=== PATIENT | male | born 1955 | race Caucasian/White ===

== ENCOUNTER 2016-06-13 20:28 | Emergency (ER) | payer MEDICAID, MEDICARE ==
[~2016-06-13] VITALS: Ht 177.8 cm; Wt 99.0 kg
[~2016-06-13 20:28] MED LIST: GABA-502 PO; HYDR-656 PO; INSU100I SUBQ; LEVO500T16 PO; LEVO500T79 PO; METF850T2 PO; OXYC-466 PO; OXYC1TAB24 PO; SOFO400T PO
[2016-06-13 20:51] VITALS: BP 136/86; PULSE 89; RESP 20; O2SAT 98
--- NOTE | 2016-06-13 22:39 | ED.REPORT ---
HPI-Dental/Mouth Prob Date of Service Jun 13, 2016 ED Provider: Arsen Bourgeois MD Pt is a 61 y/o male w/ a hx significant for chronic pain with opiate dependence and drug-seeking behavior, presenting to the ED c/o dental pain onset a few days ago. The patient had 3 teeth pulled on the upper right side with suturing 3 weeks ago. He is now experiencing a piercing sensation into his gum. Ibuprofen and Tylenol has not provided much relief. He is currently taking antibiotics. Pt denies fever, SOB, dysphagia, facial swelling. Of note, the patient gives incorrect information about when he was last given narcotic pain medication. Nursing Notes Stated Complaint: TOOTH PAIN Chief Complaint: Dental Nursing Notes Reviewed: Yes Allergies: Coded Allergies: Penicillins (Verified Allergy, Severe, Severe itching/hives, OK WITH CEPHALOSPORINS, 05/29/16) PT TAKES KEFLEX AT HOME RECEIVED ROCEPHIN ON 08/16; NO PROBLEMS NOTED ketorolac (Verified Adverse Reaction, Intermediate, 05/29/16) Scheduled Gabapentin (Gabapentin) 300 Mg Capsule 900 MG PO DAILY Levofloxacin (Levaquin) 500 Mg Tablet 500 MG PO DAILY Levofloxacin (Levofloxacin) 500 Mg Tablet 500 MG PO DAILY Sofosbuvir (Sovaldi) 400 Mg Tablet 400 MG PO DAILY taken at am hydrOXYzine Hcl (HydrOXYzine Hcl) 25 Mg Tablet 25 MG PO DAILY Scheduled PRN Insulin Aspart (NovoLOG U-100 Pen) 100 Unit/Ml Insuln.pen 0-20 UNIT SUBQ TIDAC PRN PRN sliding scale 1 unit for BS>150, 1 unit increment for BS increment of 25 Metformin (Metformin) 850 Mg Tablet 850 MG PO BIDAC PRN PRN only when Blood suger is high Take only when blood suger is high oxyCODONE-Acetaminophen 10-325 mg (oxyCODONE-Acetaminophen 10-325 mg) 1 Each Tablet 1 TABLET PO Q4H PRN PRN For Pain oxyCODONE-Acetaminophen 5-325 mg (oxyCODONE-Acetaminophen 5-325 mg) 1 Each Tablet 1-2 TAB PO Q6H PRN PRN For Pain General Time Seen by MD: 22:14 Chief Complaint Tooth pain Hx Obtained From: Patient Arrived By: Walk-in Onset Occurred: 3 days ago Symptom Duration: Since onset Quality: Painful Severity: Current: Moderate Severity: Maximum: Moderate Recent Healthcare: Recent doctor visit Past Medical History Past Medical History Notes: Infectious disease followed by Dr. Goff Drug seeking behavior Past Medical History C diff November 2015 Chronic venous stasis Hepatitis C, now treated Bilateral lower extremity knee arthritis On chronic opiates, with history of drug-seeking behavior Hx of septic joint - on doxycycline Anxiety Hx of pneumonia Reports: Diabetes mellitus, Hypertension Reports: Depression Past Surgical History Left knee replacement (2011) with MRSA postoperative infection and hardware removal right knee ACL repair Family History Father CABG in his 60's Smoking History Never Smoker Social History Alcohol Use: Denies alcohol use Drug Use: Denies drug use Other Social History: Local resident Occupation lives with partner and her daughter and daughter's boyfriend and severl young children Ambulatory Status Walker Review of Systems Constitutional: Denies: Fever Ears / Nose / Throat: Reports: Toothache Respiratory: Denies: Shortness of breath GI: Denies: Dysphagia Complete sys rev & neg: except as marked. Physical Exam Initial Vital Signs Vital Signs (First) Date Time Temp Pulse Resp B/P Pulse Ox O2 Delivery O2 Flow Rate FiO2 06/13/16 20:51 37.1 89 20 136/86 98 Room Air Initial VS: Reviewed, Vital signs normal Head / Eyes: Atraumatic, Normocephalic, PERRL Cardiovascular: Regular rate & rhythm, Heart sounds normal, Intact distal pulses Abdomen / GI: Soft, Non-tender, No guarding, No rebound, No distention Skin: Warm, Dry, No cyanosis Neurologic: Alert, Oriented, Nonfocal Psychiatric: Mood/affect normal, Behavior normal, Normal thought content ENT: Atraumatic, Airway patent, Mucous membranes moist, Pharynx NL Mostly edentulous Small pinpoint protrusion over anterior gum which he indicates is causing his pain. No erythema or evidence of abscess or infection Neck: Atraumatic, Supple, No meningismus, Full range of motion, No adenopathy General/Constitutional: Awake, Alert, No acute distress, Cooperative, Not toxic appearing Re-Eval/Medical Decision Med Decision/Clinical Course The patient did not disclose to me the multiple and extensive narcotic prescribing that has happened earlier in May and even this month. I told him that I was unwilling to participate narcotic prescription given this set of circumstances. Source of Hx: Old records Counseled Regarding: Diagnosis, Need for follow-up, When/why to return to ED Discharge & Departure Primary Impression: Pain, dental Additional Impression: Drug-seeking behavior Disposition: Home Discharge Condition All VS Reviewed: Yes Condition: Stable Additional Instructions: I am sorry but I am not willing to participate in narcotic prescription for these ongoing problems. I recommend you follow-up with a dentist as soon as possible. Referrals: Geraldine Contreras MD (PCP) Kenney Attestation Portions of this note were transcribed by Chris Mann. I, Dr. Bourgeois personally performed the history, physical exam and medical decision-making; I reviewed and confirmed the accuracy of the information in the transcribed note. Signed by Kenney Berry, 06/13/16 - 0606 copies to: Geraldine Contreras MD, Kirk H MD Jun 13, 2016 22:39 CHRIS MANN Jun 13, 2016 22:48
== END 2016-06-13 22:55 | disposition home or self-care (01) ==
LOC: SED 20:28
DX: K08.89 Other specified disorders of teeth and supporting structures (principal); I10 Essential (primary) hypertension; E11.9 Type 2 diabetes mellitus without complications; Z87.01 Personal history of pneumonia (recurrent); Z86.19 Personal history of other infectious and parasitic diseases; Z72.89 Other problems related to lifestyle; Z96.652 Presence of left artificial knee joint; Z86.14 Personal history of Methicillin resistant Staphylococcus aureus infection; Z88.0 Allergy status to penicillin; Z88.8 Allergy status to other drugs, medicaments and biological substances; Z79.4 Long term (current) use of insulin; Z79.84 Long term (current) use of oral hypoglycemic drugs

== ENCOUNTER 2016-06-29 17:53 | Emergency (ER) | payer MEDICAID, MEDICARE ==
[~2016-06-29] VITALS: Ht 177.8 cm; Wt 100.0 kg
[2016-06-29 18:01] VITALS: BP 143/81; PULSE 87; RESP 16; O2SAT 99
--- NOTE | 2016-06-29 18:55 | ED.REPORT ---
HPI-Dental/Mouth Prob Date of Service Jun 29, 2016 ED Provider: Jersey Carrillo MD History of Present Illness: [facility] pulled a week ago [facility]. still having pain. started clindamycin 2 days ago, had at home. seen 3 days ago at walk in clinic given naprosyn and oxycodone. requesting more oxycodone Nursing Notes Stated Complaint: DRY SOCKET Chief Complaint: Dental Nursing Notes Reviewed: Yes Allergies: Coded Allergies: Penicillins (Verified Allergy, Severe, Severe itching/hives, OK WITH CEPHALOSPORINS, 06/29/16) PT TAKES KEFLEX AT HOME RECEIVED ROCEPHIN ON 08/16; NO PROBLEMS NOTED ketorolac (Verified Adverse Reaction, Intermediate, 06/29/16) Scheduled Gabapentin (Gabapentin) 300 Mg Capsule 900 MG PO DAILY Levofloxacin (Levaquin) 500 Mg Tablet 500 MG PO DAILY Levofloxacin (Levofloxacin) 500 Mg Tablet 500 MG PO DAILY Sofosbuvir (Sovaldi) 400 Mg Tablet 400 MG PO DAILY taken at am hydrOXYzine Hcl (HydrOXYzine Hcl) 25 Mg Tablet 25 MG PO DAILY Scheduled PRN Insulin Aspart (NovoLOG U-100 Pen) 100 Unit/Ml Insuln.pen 0-20 UNIT SUBQ TIDAC PRN PRN sliding scale 1 unit for BS>150, 1 unit increment for BS increment of 25 Metformin (Metformin) 850 Mg Tablet 850 MG PO BIDAC PRN PRN only when Blood suger is high Take only when blood suger is high oxyCODONE-Acetaminophen 10-325 mg (oxyCODONE-Acetaminophen 10-325 mg) 1 Each Tablet 1 TABLET PO Q4H PRN PRN For Pain oxyCODONE-Acetaminophen 5-325 mg (oxyCODONE-Acetaminophen 5-325 mg) 1 Each Tablet 1-2 TAB PO Q6H PRN PRN For Pain General Time Seen by MD: 18:52 Chief Complaint Other Hx Obtained From: Patient Arrived By: Walk-in Onset Occurred: Yesterday Symptom Duration: Since onset Severity: Current: Mild Pertinent Negative: Pt denies other symptoms Recent Healthcare: No recent doctor visit, No recent hospitalization Similar Sx Previous: No Past Medical History Past Medical History Notes: Infectious disease followed by Dr. Goff Drug seeking behavior Past Medical History C diff November 2015 Chronic venous stasis Hepatitis C, now treated Bilateral lower extremity knee arthritis On chronic opiates, with history of drug-seeking behavior Hx of septic joint - on doxycycline Anxiety Hx of pneumonia Reports: Diabetes mellitus, Hypertension Reports: Depression Past Surgical History Left knee replacement (2011) with MRSA postoperative infection and hardware removal right knee ACL repair Family History Father CABG in his 60's Smoking History Never Smoker Social History Alcohol Use: Denies alcohol use Drug Use: Denies drug use Other Social History: Local resident Occupation lives with partner and her daughter and daughter's boyfriend and severl young children Ambulatory Status Independent Review of Systems Basic Review of Systems Eyes: Vision NL, No discharge Hematologic: No bleeding, No bruising Psychiatric: Normal thought content Complete sys rev & neg: except as marked. Physical Exam Initial Vital Signs Initial VS: Reviewed, Vital signs normal General/Constitutional: Well-developed, Well-nourished Head / Eyes: Atraumatic, Normocephalic, PERRL Respiratory: Breath sounds normal, Clear to auscultation, No respiratory distress Cardiovascular: Regular rate & rhythm, Heart sounds normal, Intact distal pulses Abdomen / GI: Soft, Non-tender, No guarding, No rebound, No distention Back: No CVA tenderness Lymphatic: No lymphadenopathy Extremities: Vascular intact, Neuro intact, No swelling, No tenderness Skin: Warm, Dry, No cyanosis Neurologic: Alert, Oriented, Nonfocal Psychiatric: Mood/affect normal, Behavior normal, Normal thought content ENT: Atraumatic, Airway patent, Mucous membranes moist patient has 3 sites of tooth extraction, almost completely healed. gums are pink. No sign of dry socket. Has no teeth remaining in mouth General/Constitutional: Awake, Alert, No acute distress Respiratory / Chest: Atraumatic, Breath sounds NL, Breath sounds = bilat Cardiovascular: Heart rate NL, Regular rhythm, Heart sounds NL, No gallop Procedures Dental Nerve Block Block Performed by: [facility] Consent / Setup / Site Prep: Informed consent provided, Consent from patient , Stand sterile technique Anesthesia: Infraorbital block, Aspirated before inject Local Anesthesia: Bupivacaine 0.5%, 2cc Post-Procedure / Complications: No complications, Condition improved, Tolerated procedure well, Patient stable, No bleeding Re-Eval/Medical Decision Counseled Regarding: Diagnosis, Need for follow-up, When/why to return to ED Discharge & Departure Primary Impression: Toothache Disposition: Home Discharge Condition All VS Reviewed: Yes Condition: Stable Additional Instructions: The sites do not show any sign of infection or dry socket. Please follow with [facility] for ongoing pain management. I am glad you had your teeth taken care off. I am sorry you are having discomfort. Referrals: Geraldine Contreras MD (PCP) E[facility]vising Provider for APC: Jersey Carrillo MD Scribe Attestation Portions of this note were transcribed by Karthik Adair. I, Dr. Carrillo personally performed the history, physical exam and medical decision-making; I reviewed and confirmed the accuracy of the information in the transcribed note. Signed by: raymond Titus. 06/29/2016, 23:30. Attending Statement Attending attestation: I saw this patient in conjunction with Taisha PARKER. I agree with the workup , evaluation, treatment and disposition. Jersey Carrillo MD copies to: Geraldine Contreras MD, Beck O MD Jun 29, 2016 18:55 KARTHIK ADAIR Jun 29, 2016 18:56 Taisha Vidal Jun 29, 2016 19:24 Jersey Carrillo MD copies to: Geraldine Contreras MD, Beck O MD Jun 29, 2016 18:55 KARTHIK ADAIR Jun 29, 2016 18:56 Taisha Vidal Jun 29, 2016 19:24
== END 2016-06-29 20:11 | disposition home or self-care (01) ==
LOC: SED 17:53
DX: K08.89 Other specified disorders of teeth and supporting structures (principal); E11.9 Type 2 diabetes mellitus without complications; I10 Essential (primary) hypertension; Z86.19 Personal history of other infectious and parasitic diseases; Z87.01 Personal history of pneumonia (recurrent); Z96.652 Presence of left artificial knee joint; Z86.14 Personal history of Methicillin resistant Staphylococcus aureus infection; Z88.0 Allergy status to penicillin; Z88.8 Allergy status to other drugs, medicaments and biological substances; Z79.84 Long term (current) use of oral hypoglycemic drugs; Z79.4 Long term (current) use of insulin
CPT/HCPCS: 64400; 99283; G0463

== ENCOUNTER 2016-07-23 23:06 | Emergency (ER) | payer MEDICAID, MEDICARE ==
[~2016-07-23] VITALS: Ht 175.3 cm; Wt 96.4 kg
[2016-07-23 23:15] VITALS: BP 130/90; PULSE 89; RESP 18; O2SAT 98
--- NOTE | 2016-07-23 23:23 | ED.REPORT ---
HPI-Back Pain 40 and Over Date of Service Jul 23, 2016 ED Provider: Crystal Ahuja MD A 61 male with a history of heart murmur, syncope, knee replacement, diabetes, hepatitis B, and degenerative arthritis presents to the ED complaining of back pain. The pt stood up around lunchtime today and suddenly felt lightheaded with tunnel vision. His legs gave out and he fell to the ground fairly hard. The pt laid on the ground for about 45 minutes before he was able to get up onto a chair. He has been sitting on the chair since until the pain became unbearable and he asked his neighbor for a ride to the ED. The pt denies numbness, loss of consciousness, or changes in bowel or bladder habits. He had no loss of consciousness during the near syncopal event and states that he has had several episodes like this before. They have been attributed to dehydration. This was similar to previous. Nursing Notes Stated Complaint: BACK PAIN Chief Complaint: Back Pain or Injury Nursing Notes Reviewed: Yes Allergies: Coded Allergies: Penicillins (Verified Allergy, Severe, Severe itching/hives, OK WITH CEPHALOSPORINS, 06/29/16) PT TAKES KEFLEX AT HOME RECEIVED ROCEPHIN ON 08/16; NO PROBLEMS NOTED ketorolac (Verified Adverse Reaction, Intermediate, 06/29/16) Scheduled Gabapentin (Gabapentin) 300 Mg Capsule 900 MG PO DAILY Levofloxacin (Levaquin) 500 Mg Tablet 500 MG PO DAILY Levofloxacin (Levofloxacin) 500 Mg Tablet 500 MG PO DAILY Sofosbuvir (Sovaldi) 400 Mg Tablet 400 MG PO DAILY taken at am hydrOXYzine Hcl (HydrOXYzine Hcl) 25 Mg Tablet 25 MG PO DAILY Scheduled PRN Insulin Aspart (NovoLOG U-100 Pen) 100 Unit/Ml Insuln.pen 0-20 UNIT SUBQ TIDAC PRN PRN sliding scale 1 unit for BS>150, 1 unit increment for BS increment of 25 Metformin (Metformin) 850 Mg Tablet 850 MG PO BIDAC PRN PRN only when Blood suger is high Take only when blood suger is high oxyCODONE-Acetaminophen 10-325 mg (oxyCODONE-Acetaminophen 10-325 mg) 1 Each Tablet 1 TABLET PO Q4H PRN PRN For Pain oxyCODONE-Acetaminophen 5-325 mg (oxyCODONE-Acetaminophen 5-325 mg) 1 Each Tablet 1-2 TAB PO Q6H PRN PRN For Pain General Time Seen by MD: 23:22 Chief Complaint Back pain Hx Obtained From: Patient Arrived By: Walk-in Sudden in Onset?: Yes Onset Occurred: 1 - 4 hours ago Symptom Duration: Since onset Recent Healthcare: Recent doctor visit, Recent hospitalization Similar Sx Previous: No Past Medical History Past Medical History Notes: Infectious disease followed by Dr. Goff Drug seeking behavior Past Medical History C diff November 2015 Chronic venous stasis Hepatitis C, now treated Syncope Bilateral lower extremity knee arthritis On chronic opiates, with history of drug-seeking behavior Hx of septic joint - on doxycycline Anxiety Hx of pneumonia Reports: Diabetes mellitus, Hypertension Reports: Depression Past Surgical History Left knee replacement (2011) with MRSA postoperative infection and hardware removal right knee ACL repair Family History Father CABG in his 60's Smoking History Never Smoker Social History Alcohol Use: Denies alcohol use Drug Use: Denies drug use Other Social History: Local resident Occupation lives with partner and her daughter and daughter's boyfriend and severl young children Ambulatory Status Independent Review of Systems Review of Systems Note: denies changes in bowel or bladder habits Constitutional: Denies: Fever Respiratory: Denies: Non-productive cough Cardiovascular: Denies: Chest pain GI: Denies: Abdominal pain Musculoskeletal: Reports: Back pain Neurologic: Reports: Change LOC, Lightheaded, Denies: Numbness Complete sys rev & neg: except as marked. Physical Exam Initial Vital Signs Vital Signs (First) Date Time Temp Pulse Resp B/P Pulse Ox O2 Delivery O2 Flow Rate FiO2 07/23/16 23:15 37.2 89 18 130/90 98 Initial VS: Reviewed General/Constitutional: Awake, Alert Respiratory / Chest: Atraumatic, Breath sounds NL, Breath sounds = bilat, No respiratory distress Cardiovascular: Heart rate NL, Regular rhythm, Heart sounds NL Abdomen: Atraumatic, Soft, Non-tender, No distention Back: Atraumatic, Full range of motion midline tender to palpation Neurologic: Oriented X3, Speech NL, No motor deficits, No sensory deficits sensation and motor intact in all extremities 5/5 strength in all extremities Neck: Atraumatic, Supple, Full range of motion Lower Extremity / Pelvis / MS: Atraumatic, Full range of motion Skin: Atraumatic, Color NL, No rash, Warm, Dry Head / Eyes: Atraumatic, Normocephalic, PERRL, EOMI ENT: Atraumatic, Airway patent, Mucous membranes moist Upper Extremity / MS: Atraumatic, Full range of motion Psychiatric: Affect NL, Mood NL Interpretation & Diagnostics Interpretation & Diagnostics: CT Lumbar Spine: CONCLUSION: No evidence of acute osseous pathology. Old compression fracture of L2. Evidence for previous discitis/osteomyelitis at L3-4 and possibly L4-5. Degenerative disc disease and bulges at L3-4, L4-5, and L5-S1. Re-Eval/Medical Decision Med Decision/Clinical Course 61-year-old male here with back pain after fall. Differential diagnosis includes but is not limited to fracture versus dislocation versus contusion versus drug-seeking behavior. Patient CT of his L-spine does not show any evidence of acute fracture. I do not feel he has acute cauda equina syndrome, nor do I feel he has any spinal injury. He was given a single Percocet in the emergency department, and has follow-up tomorrow with his primary care physician for further pain control. He did have a near syncopal event today, however, these are common for him, he has been worked up for them, he had no associated chest pain or shortness of breath, and I do not feel he requires workup or admission for near syncope at this time. He is aware and Amenable to discharge. Source of Hx: Old records Re-Evaluation/Progress : Time of Eval: 01:23 Patient Status: Condition improved Re-Evaluation/Progress Note: Pt rechecked, who is resting comfortably. Radiology results are addressed. The plan for discharge was discussed. The pt understands and agrees with the plan. All questions were addressed at this time. Counseled Regarding: Diagnosis, Need for follow-up, When/why to return to ED Discharge & Departure Impression: Primary Impression: Back pain Back pain location: low back pain Chronicity: chronic Back pain laterality : midline Sciatica presence: without sciatica Qualified Code: M54.5 - Low back pain Disposition: Home Discharge Condition All VS Reviewed: Yes Condition: Stable Patient Instructions: Acute Low Back Pain (ED) Additional Instructions: Thank you for entrusting us with your care. Your CT scan was reassuring. Keep your appointment tomorrow with your primary care physician. Return to the emergency department if you develop any new or worsening symptoms. Your blood pressure in the emergency department today was elevated (138/85). Be sure to follow up with your primary care physician to have this rechecked because you may need to be started on blood pressure medications. Referrals: Geraldine Contreras MD (PCP) Alexibzunilda Attestation Portions of this note were transcribed by Ayan Davenport. I, Dr. Ahuja personally performed the history, physical exam and medical decision-making; I reviewed and confirmed the accuracy of the information in the transcribed note. Signed by: Kenney Glover, 07/24/2016 and 0236. copies to: Geraldine Contreras MD, Rebecca A MD Jul 23, 2016 23:23 AYAN DAVENPORT Jul 23, 2016 23:42
[2016-07-23] MEDS ORDERED: oxyCODONE-Acetamin 5-325 mg Tablet PO ONE (23:40)
--- NOTE | 2016-07-24 08:38 | DRSVH ---
PROCEDURE: CT LUMBAR SPINE WITHOUT CONTRAST ([id number]) INDICATIONS: back pain post fall TECHNIQUE: Noncontrast 3 mm thick sections acquired from the T12 level to the sacrum. Sagittal and coronal refo rmats were constructed. For radiation dose reduction, the following was used: automated exposure co ntrol. COMPARISON: [facility], CT, CT LUMBAR SPINE WO CON, 02/14/2016, 19:14. FINDINGS: Image quality: Excellent. Bones: There is normal bony alignment. No acute vertebral body compression fractures. Moderate appeals coordinator ashlyn L2 compression fracture is unchanged. No suspicious lytic or blastic bony lesions. Central spina l caliber is of normal overall caliber. No pars defects. Multilevel endplate osteophytes and facet hypertrophy. Endplate irregularity and erosions at L3-L4 and L4-L5 are present, as before. Moderate c anal stenosis at L4-L5. Moderate foraminal stenoses bilaterally at L3-4, L4-L5, and L5-S1, as before. Soft tissues: No retroperitoneal masses or hematomas. Visualized aorta is normal in caliber. 4 mm nonobstructing calculus within the right interpolar kidney. IMPRESSION: 1. No acute process. 2. Multilevel degenerative disc and facet disease. Multilevel canal and foraminal stenoses, as descri bed above. 3. No change in endplate irregularity and erosions at L3-L4 and L4-L5, possibly representing prior di scitis/osteomyelitis. 4. Right nephrolith. 5. Moderate chronic L2 compression fracture is unchanged. 6. Concordant with preliminary interpretation. Dictated by: Ngozi Lindo M.D. on 07/24/2016 at 8:32 Approved by: Ngozi Lindo M.D. on 07/24/2016 at 8:37
== END 2016-07-24 01:54 | disposition home or self-care (01) ==
LOC: SED 23:06
DX: M54.5 Low back pain (principal); W18.30XA Fall on same level, unspecified, initial encounter; Y92.9 Unspecified place or not applicable; Y93.89 Activity, other specified; Y99.8 Other external cause status; E11.9 Type 2 diabetes mellitus without complications; I10 Essential (primary) hypertension; Z86.79 Personal history of other diseases of the circulatory system; Z96.652 Presence of left artificial knee joint; Z86.19 Personal history of other infectious and parasitic diseases; Z87.39 Personal history of other diseases of the musculoskeletal system and connective tissue; Z86.14 Personal history of Methicillin resistant Staphylococcus aureus infection; Z79.84 Long term (current) use of oral hypoglycemic drugs; Z79.4 Long term (current) use of insulin; Z88.0 Allergy status to penicillin; Z88.6 Allergy status to analgesic agent

== ENCOUNTER 2016-07-31 19:25 | Inpatient (IN) | payer MEDICAID, MEDICARE ==
[~2016-07-31] VITALS: Ht 177.8 cm; Wt 103.2 kg
[2016-07-31 19:29] VITALS: BP 134/87; PULSE 89; RESP 16; O2SAT 98
--- NOTE | 2016-07-31 20:28 | ED.REPORT ---
HPI-Extremity Problem Lower Date of Service Jul 31, 2016 ED Provider: Juvenal Hay DO Pt is a 61 y.o. male with a hx of DM, HTN, and chronic venous stasis who presents to the ED c/o left leg pain onset yesterday. He reports associated difficulty ambulating due to pain, worsening redness, swelling, and bruising to his left knee. He denies fever. Nursing Notes Stated Complaint: LEG INFECTION Chief Complaint: Skin Rash/Abscess Nursing Notes Reviewed: Yes Allergies: Coded Allergies: Penicillins (Verified Allergy, Severe, Severe itching/hives, OK WITH CEPHALOSPORINS, 07/31/16) PT TAKES KEFLEX AT HOME RECEIVED ROCEPHIN ON 08/16; NO PROBLEMS NOTED ketorolac (Verified Adverse Reaction, Intermediate, 07/31/16) Scheduled Ascorbic Acid (Vitamin C) 1,000 Mg Tab.chew 1,000 MG PO DAILY Cholecalciferol (Vitamin D3) (Vitamin D3) 2,000 Unit Tablet 2,000 UNIT PO DAILY Doxycycline Monohyd (Doxycycline Monohyd) 100 Mg Capsule 100 MG PO BID Furosemide (Furosemide) 40 Mg Tablet 40 MG PO QAM Gabapentin (Gabapentin) 300 Mg Capsule 900 MG PO HS Magnesium Oxide (Magnesium Oxide) 400 Mg Tablet 400 MG PO DAILY Metformin (Metformin) 850 Mg Tablet 850 MG PO BIDWM Potassium Chloride ER (Potassium Chloride ER) 20 Meq Tablet.er 20 MEQ PO DAILY TAKE WITH FOOD Vit B Comp&C/Folic Acid/Vit D3 (Dialyvite 800 Plus D Wafer) 800 Mcg-2,000 Unit Tab.chew 1 EACH PO DAILY Scheduled PRN Etodolac (Etodolac) 500 Mg Tablet 500 MG PO BIDWM PRN PRN For Pain Insulin Aspart (NovoLOG U-100 Pen) 100 Unit/Ml Insuln.pen 0-20 UNIT SUBQ TIDAC PRN PRN sliding scale 1 unit for BS>150, 1 unit increment for BS increment of 25 Oxycodone (Roxicodone) 5 Mg Tablet 15-20 MG PO QID PRN PRN For Pain diphenhydrAMINE HCl (Unisom) 50 Mg/30 Ml Liquid 50 MG PO HS PRN PRN Insomnia General Time Seen by MD: 20:27 Chief Complaint Leg injury left Hx Obtained From: Patient Arrived By: Walk-in Onset Occurred: Yesterday Symptom Duration: Since onset Location: : Leg left Quality: Painful Severity: Current: Severe Past Medical History Past Medical History Notes: Infectious disease followed by Dr. Goff Drug seeking behavior Past Medical History C diff November 2015 Chronic venous stasis Hepatitis C, now treated Syncope Bilateral lower extremity knee arthritis On chronic opiates, with history of drug-seeking behavior Hx of septic joint - on doxycycline Anxiety Hx of pneumonia Reports: Diabetes mellitus, Hypertension Reports: Depression Past Surgical History Left knee replacement (2011) with MRSA postoperative infection and hardware removal right knee ACL repair Family History Father CABG in his 60's Smoking History Never Smoker Social History Alcohol Use: Denies alcohol use Drug Use: Denies drug use Other Social History: Local resident Occupation lives with partner and her daughter and daughter's boyfriend and severl young children Ambulatory Status Independent Review of Systems Constitutional: Denies: Chills, Fever Musculoskeletal: Reports: Extremity pain (left lower extremity), Extremity swelling (left lower extremity) Skin: Reports Bruising (left knee), Reports Rash (redness left lower extremity) Neurologic: Reports: Problem walking (due to pain) Complete sys rev & neg: except as marked. GI: Denies: Diarrhea, Nausea, Vomiting Physical Exam Initial Vital Signs Vital Signs (First) Date Time Temp Pulse Resp B/P Pulse Ox O2 Delivery O2 Flow Rate FiO2 07/31/16 19:29 36.4 89 16 134/87 98 Room Air Head / Eyes: Atraumatic, Normocephalic Abdomen / GI: No distention Upper Extremities: Vascular intact, Neuro intact Skin: Warm, Dry, No cyanosis Neurologic: Alert, Oriented, Nonfocal Psychiatric: Mood/affect normal, Behavior normal, Normal thought content Lower Extremity / Pelvis / MS: No deformity, Neurologic intact, Vascular intact Left Thigh: Positive: Erythema present (anteriro aspect), Warmth present Left Leg / Calf: Positive: Erythema present (anterior aspect), Warmth present Trauma / Burn / Environmental: Positive: Ecchymosis (left knee) Left leg, edematous till mid-thigh Ankle / Foot: No deformity, Neurologic intact, Vascular intact Respiratory / Chest: Atraumatic, Breath sounds NL, Breath sounds = bilat, No respiratory distress Cardiovascular: Heart rate NL, Regular rhythm, Heart sounds NL Rash / Lesion Notes: Shiny brawny skin hyperpigmentation, bilateral lower extremities Interpretation & Diagnostics Lab Results Interpretation Result Diagram: 08/01/16 0650 08/01/16 0650 Test 07/31/16 20:55 Prothrombin Time 12.7sec (8.1-12.5) Prothromb Time International Ratio 1.18ratio Activated Partial Thromboplast Time 32.1sec (22.8-33.0) D-Dimer 1.1mg/L (<0.50) Lactic Acid Level 1.3mmol/L (0.4-2.0) Total Bilirubin 1.4mg/dL (0.0-1.2) Aspartate Amino Transf (AST/SGOT) 23U/L (0-50) Alanine Aminotransferase (ALT/SGPT) 13U/L (0-44) Alkaline Phosphatase 127U/L (25-160) C-Reactive Protein 0.9mg/dL (0.0-0.5) Total Protein 6.4g/dL (6.4-8.4) Albumin 3.2g/dL (3.4-5.0) Procalcitonin 0.05ng/mL (0.00-0.08) US Soft Tissue/Musculoskeletal CONCLUSION: No evidence of left lower extremity deep vein thrombosis. Soft tissue edema and groin lymph nodes raising possibility of cellulitis. Please correlate clinically. Radiologist: Izaiah Whitten MD Re-Eval/Medical Decision Med Decision/Clinical Course It is difficult to say if Mr. Durham has an active bacterial infection or not. He is high enough risk that I will air on the side of caution. I will cautiously use vancomycin and ceftriaxone. We will culture his blood. I think he will need ASO titers and infectious disease consultation. He does not have a DVT. Antibiotics infused the ED and he was admitted. Source of Hx: Old records Re-Evaluation/Progress : Time of Eval: 23:06 Re-Evaluation/Progress Note: Pt rechecked. Consultation : Referral / Consult Name: Yoandy Aguilar MD Consulted With: Hospitalist Call Returned at: 23:58 [employer]ie Mill Operator: Will see patient, Agrees with eval, Agrees with plan, Accepts admit Note: Discussed pt conditon, accepts admit. Counseled Regarding: Diagnosis, Lab results, Need for admission Discharge & Departure Impression: Primary Impression: Cellulitis of left lower extremity Disposition: ADMITTED TO HOSPITAL Discharge Condition All VS Reviewed: Yes Condition: Improved Referrals: Geraldine Contreras MD (PCP) Scribe Attestation Portions of this note were transcribed by Mckenna Laird. Dr. Bharti Zamora personally performed the history, physical exam and medical decision-making; I reviewed and confirmed the accuracy of the information in the transcribed note. Signed by : Kenney Zheng, 08/01/16 and 0148. copies to: Geraldine Contreras MD, Todd P DO Jul 31, 2016 20:27 MCKENNA LAIRD Jul 31, 2016 20:36 Aspartate Amino Transf (AST/SGOT) 23U/L (0-50) Alanine Aminotransferase (ALT/SGPT) 13U/L (0-44) Alkaline Phosphatase 127U/L (25-160) C-Reactive Protein 0.9mg/dL (0.0-0.5) Total Protein 6.4g/dL (6.4-8.4) Albumin 3.2g/dL (3.4-5.0) Procalcitonin 0.05ng/mL (0.00-0.08) US Soft Tissue/Musculoskeletal CONCLUSION: No evidence of left lower extremity deep vein thrombosis. Soft tissue edema and groin lymph nodes raising possibility of cellulitis. Please correlate clinically. Radiologist: Izaiah Whitten MD Re-Eval/Medical Decision Source of Hx: Old records Re-Evaluation/Progress : Time of Eval: 23:06 Re-Evaluation/Progress Note: Pt rechecked. Consultation : Referral / Consult Name: Yoandy Aguilar MD Consulted With: Hospitalist Call Returned at: 23:58 [employer] [place] Operator: Will see patient, Agrees with eval, Agrees with plan, Accepts admit Note: Discussed pt conditon, accepts admit. Counseled Regarding: Diagnosis, Lab results, Need for admission Discharge & Departure Impression: Primary Impression: Cellulitis of left lower extremity Disposition: ADMITTED TO HOSPITAL Discharge Condition All VS Reviewed: Yes Condition: Improved Referrals: Geraldine Contreras MD (PCP) Scribe Attestation Portions of this note were transcribed by Mckenna Laird. Dr. Bharti Zamora personally performed the history, physical exam and medical decision-making; I reviewed and confirmed the accuracy of the information in the transcribed note. Signed by : Kenney Zheng, 08/01/16 and 0148. copies to: Geraldine Contreras MD, Todd P DO Jul 31, 2016 20:27 MCKENNA LAIRD Jul 31, 2016 20:36
[2016-07-31] MEDS ORDERED: cefTRIAXone Inj 2,000 MG in Dextrose 5% Minibag Plus 50 ML IV ONE (20:40)
[2016-07-31 21:13] LABS: BASOPHILS % (AUTO) 0.8 % (0-3); EOSINOPHILS % (AUTO) 7.8 % (0-5); Mean Corpuscular Hemoglobin 31.1 pg (27.0-35.0); Mean Corpuscular Volume 86.9 fL (81-100); NEUTROPHILS % (AUTO) 58.8 % (40-74); Platelet Count 70 bil/L (150-400)
[2016-07-31] MEDS: Sodium Chloride LOK Flush 10 mL Syringe IVFLUSH SCH (21:16)
[2016-07-31] MEDS: HYDROmorphone 0.5 mg/0.5 mL iSecure Syringe IVPUSH PRN ×2 (21:16→23:37)
[2016-07-31] MEDS ORDERED: Clindamycin Inj 900 MG in IV Premix 1 EACH IV ONE (23:05)
[2016-07-31] MEDS ORDERED: Vancomycin Dose per Pharmacist XX SCH (23:25)
[2016-07-31] MEDS ORDERED: Vancomycin Dose per Pharmacist XX ONE (23:27)
[2016-07-31] MEDS ORDERED: Vancomycin Inj 2,000 MG in 0.9% Sodium Chloride 500 ML IV ONE (23:46)
[2016-08-01] VITALS (7 sets, daily range): BP systolic 137–157; BP diastolic 71–87; PULSE 79–84; RESP 16–24; O2SAT 97–100
--- NOTE | 2016-08-01 00:21 | PCM.HPMED ---
Subjective Date of Service Aug 01, 2016 Primary Provider: Admitting Physician: Primary Care Physician: [facility] Attending Physician: Chief Complaint: Left leg infection History of Present Illness: Patient is a 61 y.o. M with medial history of DM, HTN, Chronic venous stasis, hepatitis C with cirrhosis and a history of chronic pain, knee replacements on two occasions on the left knee, most recently in May 2015. Presented to ED with left leg pain that began yesterday. Patient stated that he bumped his left leg about one and a half weeks ago and the wound has not healed and has become painful, swollen, red, actively draining serosanguinous fluid. Patient stated that pain dramatically increased last night with more swelling, red and dark discoloration that spread from his guo to his left knee. Patient stated that he has had problems like this in the past, associated with left prosthetic knee maintained on life long doxycycline due to concern for MRSA latent infection with improvement and he required hospilitalization and IV antibiotics, he was last seen by Dr. Goff 06/07/16 and was continued on life long doxycycline. In the past patient was admitted for recurrent infection, past streptozyme 249.7, and placed on vancomycin and levofloxacin with improvement. In the ED patient started in IVF NS, vancomycin, ceftrixone, clindamycin. Review of Systems: A comprehensive review of systems was conducted with the patient and found to be negative except as above in the History of Present Illness. Allergies Coded Allergies: Penicillins (Verified Allergy, Severe, Severe itching/hives, OK WITH CEPHALOSPORINS, 07/31/16) PT TAKES KEFLEX AT HOME RECEIVED ROCEPHIN ON 08/16; NO PROBLEMS NOTED ketorolac (Verified Adverse Reaction, Intermediate, 07/31/16) Home Medications Gabapentin (Gabapentin) 300 Mg Capsule 900 MG PO DAILY Levofloxacin (Levaquin) 500 Mg Tablet 500 MG PO DAILY Levofloxacin (Levofloxacin) 500 Mg Tablet 500 MG PO DAILY Sofosbuvir (Sovaldi) 400 Mg Tablet 400 MG PO DAILY taken at am hydrOXYzine Hcl (HydrOXYzine Hcl) 25 Mg Tablet 25 MG PO DAILY Insulin Aspart (NovoLOG U-100 Pen) 100 Unit/Ml Insuln.pen 0-20 UNIT SUBQ TIDAC PRN PRN sliding scale 1 unit for BS>150, 1 unit increment for BS increment of 25 Metformin (Metformin) 850 Mg Tablet 850 MG PO BIDAC PRN PRN only when Blood suger is high Take only when blood suger is high oxyCODONE-Acetaminophen 10-325 mg (oxyCODONE-Acetaminophen 10-325 mg) 1 Each Tablet 1 TABLET PO Q4H PRN PRN For Pain oxyCODONE-Acetaminophen 5-325 mg (oxyCODONE-Acetaminophen 5-325 mg) 1 Each Tablet 1-2 TAB PO Q6H PRN PRN For Pain PMH C diff November 2015 Chronic venous stasis Hepatitis C, now treated Syncope Bilateral lower extremity knee arthritis On chronic opiates, with history of drug-seeking behavior Hx of septic joint - on doxycycline Anxiety Hx of pneumonia Surgical History Left knee replacement (2011) with MRSA postoperative infection and hardware removal right knee ACL repair Family History Father CABG in his 60's Social History Hx Alcohol Use: No (quit 11yrs ago) Hx Substance Use: No Hx Tobacco Use: No Smoking Status: Never Smoker Exam Vital Signs Vital Sign - Last Date Time Temp Pulse Resp B/P Pulse Ox O2 Delivery O2 Flow Rate FiO2 07/31/16 19:29 36.4 89 16 134/87 98 Room Air Exam General: No acute distress, well-developed, well-nourished, appropriately interactive HEENT: Normocephalic, atraumatic. External ears without defect. Pupils equal, round, and reactive to light and accommodation. Anicteric sclerae, moist conjunctivae, and no lid lag. Oropharynx free of erythema and cobble stoning with moist mucosa. Neck: Supple with full range of motion. No jugular venous distension. No bruits. No lymphadenopathy or thyromegaly. Cardiovascular: Regular rate and rhythm with no murmurs, rubs, or gallops appreciated Pulmonary: Clear to auscultation bilaterally with no crackles, wheezes, or rhonchi. Normal respiratory effort with no use of accessory muscles. Abdomen: Bowel tones present. Soft, nontender, nondistended. No hepatosplenomegaly or masses appreciated. Extremities: No clubbing of digits, wound to LLE described below, Upper extremity wihtout defect pulses intact. LE bilateral venous status changes, decreased pulses bilaterally, neurologically intact Skin: Normal temperature, normal turgor, chronic venous status changes noted bilaterally lower extremities, 1.5 cm diameter open ulcerated wound on left lower extremity actively draining serosanguinous fluid Neurological: Cranial nerves grossly intact. Normal muscle strength, tone, and bulk. Reflexes, coordination, and sensory function within normal limits. No known gait impairment. Psychiatric: Normal mood and affect. Alert and oriented to person, place, and time. Lab and Diagnostics Result Diagram: 07/31/16205407/31/162054 X-Rays, CTs and MRIs XR left knee No derangement of prostatic device No gas noted on XR No derangement of joint mild soft tissue edema Additional Diagnostics: US Soft Tissue/Musculoskeletal CONCLUSION: No evidence of left lower extremity deep vein thrombosis. Soft tissue edema and groin lymph nodes raising possibility of cellulitis. Please correlate clinically. Radiologist: Izaiah Whitten MD Assessment & Plan Patient is a 61 y.o. M with medial history of DM, HTN, Chronic venous stasis, hepatitis C with cirrhosis and a history of chronic pain, knee replacements on two occasions on the left knee, most recently in May 2015. Admitted for treatment of left lower leg cellulitis. 1. Left lower leg cellulitis, acute - Secondary to traumatic injury and uncontrolled type II DM, history of MRSA infection - Continue IVF NS @ 100 mls/hr - Continue IV antibiotics Vancomycin and levofloxacin dosed per pharmacy - Repeat CBC, BMP in AM - Streptozyme ordered - Blood cultures ordered - XR Left tibia and fibula ordered for AM - Pain control oxycodone 15 mg Q 6 hours 2. Hyperglycemia due to uncontrolled Diabetes, non DKA, acute on chronic - History of uncontrolled Type II DM - High dose correctional scale ordered - Continue to monitor 3. Acute Kidney Injury - Secondary to DM and dehydration - Continue IVF NS @ 100 mls/hr - Repeat BMP in AM Chronic Conditions C diff November 2015, presumed stable - Continue to monitor Chronic venous stasis, presumed stable - No history of ankle brachial index Hepatitis C, now treated, presumed stable - Avoid hepatotoxic medications Bilateral lower extremity knee arthritis s/p bilateral knee replacement, presumed stable - CXR L knee showed no derangement of prosthesis On chronic opiates, with history of drug-seeking behavior - Specific request of IV dilauded - Control pain with PO medications Hx of septic joint - on doxycycline life long per ID Anxiety - Continue home medication Patient is admitted under observation status with expected length of stay less than 2 midnights due to severity of presenting symptoms, risk of adverse event, CODE STATUS FULL CODE DVT prophylaxis: SUB Q HEPARIN GI PROPHYLAXIS: Famotidine Pain Evaluation: Adequate Pain Control GI Prophylaxis: H2 oswald VTE Prophylaxis: Sub-Q Heparin (Unfractionated) Resuscitation Status: CPR: Attempt Resuscitation Attending Statement The patient was seen and examined together with Dr. Chadwick on 07/31 and I agree with the history, exam and plan as outlined in the note above. EMMA CHADWICK DO Aug 01, 2016 00:21 Yoandy Aguilar MD Aug 01, 2016 19:05
[2016-08-01] MEDS ORDERED: Alum-Mag Hydrox-Simeth 30 mL Suspension PO PRN (00:30)
[2016-08-01] MEDS ORDERED: Polyethylene Glycol (PEG) 17 Gm Powder PO PRN (00:30)
[2016-08-01] MEDS ORDERED: HYDROcodone-APAP 5-325 mg Tablet PO PRN (00:30)
[2016-08-01] MEDS ORDERED: Ondansetron 2 mg/mL 2 mL Inj IVPUSH PRN (00:30)
[2016-08-01] MEDS ORDERED: OXYC-474 PO (00:53)
[2016-08-01] MEDS ORDERED: DOXY100C43 PO (00:53)
[2016-08-01] MEDS ORDERED: POTA-62 PO (00:53)
[2016-08-01] MEDS ORDERED: FURO40TA4 PO (00:53)
[2016-08-01] MEDS ORDERED: ASCO100089 PO (00:56)
[2016-08-01] MEDS ORDERED: ETOD500T PO (00:56)
[2016-08-01] MEDS ORDERED: MAGN400T4 PO (00:56)
[2016-08-01] MEDS ORDERED: CHOL200025 PO (00:56)
[2016-08-01] MEDS ORDERED: VIT1TAB.7 PO (00:56)
[2016-08-01] MEDS ORDERED: DIPH50LI PO (00:59)
[2016-08-01 01:17] LABS: INR 1.18 ratio
--- NOTE | 2016-08-01 02:00 | NUR ---
Admit Pt admitted to floor. Was able to ambulate to standing scale and then bed with an unsteady gait d/t pain and left knee issues. Report given by Ana Lilia Lynn RN and transported by Ana Lilia. Pt rated pain as 8/10. VSS besides slightly elevated SBP 153.
[2016-08-01] MEDS: Heparin 5,000 Unit/mL Inj SUBQ SCH ×3 (02:24→17:13)
[2016-08-01 02:45] LABS: APPEARANCE,URINE CLEAR (CLEAR,HAZY); COLOR,URINE DARK YELLOW (YELLOW); OCCULT BLOOD,URINE NEGATIVE (NEGATIVE); PH,URINE 7.5 (5.0-8.0); UROBILINOGEN,URINE NORMAL (NORMAL)
[2016-08-01] MEDS: 0.9% Sodium Chloride 1,000 ML IV SCH ×2 (02:49→20:38)
[2016-08-01] MEDS ORDERED: levoFLOXacin Dose Per Pharmacist XX SCH (03:30)
--- NOTE | 2016-08-01 04:16 | PCM.CONPHA ---
Subjective Date of Service: Aug 01, 2016 Requesting Provider: EMMA DUARTE DO Left leg infection Reason for Pharmacy Consult: Vancomycin Dosing, Levaquin Dosing Objective Vital Signs Date Time Temp Pulse Resp B/P Pulse Ox O2 Delivery O2 Flow Rate FiO2 08/01/16 01:59 36.4 80 18 153/84 100 Room Air 08/01/16 01:02 36.6 81 20 137/87 99 Room Air 08/01/16 00:29 36.6 81 20 137/87 99 Room Air 07/31/16 19:29 36.4 89 16 134/87 98 Room Air Weight (Kilograms): 103.200 Height (Feet): 5 Height (Inches): 10.00 Test 07/31/16 20:55 08/01/16 02:00 White Blood Count 4.0th/mm3 (3.8-10.1) Red Blood Count 3.89mil/mm3 (4.40-5.80) Hemoglobin 12.1g/dL (13.8-17.2) Hematocrit 33.8% (41.0-50.0) Mean Corpuscular Volume 86.9fL (81-100) Mean Corpuscular Hemoglobin 31.1pg (27.0-35.0) Mean Corpuscular Hemoglobin Concent 35.8% (32.0-37.0) Red Cell Distribution Width 14.9% (12.3-15.4) Platelet Count 70bil/L (150-400) Neutrophils (%) (Auto) 58.8% (40-74) Lymphocytes (%) (Auto) 22.3% (14-46) Monocytes (%) (Auto) 10.0% (4-12) Eosinophils (%) (Auto) 7.8% (0-5) Basophils (%) (Auto) 0.8% (0-3) Prothrombin Time 12.7sec (8.1-12.5) Prothromb Time International Ratio 1.18ratio Activated Partial Thromboplast Time 32.1sec (22.8-33.0) D-Dimer 1.1mg/L (<0.50) Sodium Level 136mEq/L (134-144) Potassium Level 3.7mEq/L (3.5-5.2) Chloride Level 102mEq/L (97-108) Carbon Dioxide Level 21mmol/L (18-29) Blood Urea Nitrogen 15mg/dL (8-27) Creatinine 0.65mg/dL (0.76-1.27) Estimat Glomerular Filtration Rate 132mL/min (>59) Glucose Level 262mg/dL (60-99) Lactic Acid Level 1.3mmol/L (0.4-2.0) Calcium Level 8.5mg/dL (8.5-10.1) Total Bilirubin 1.4mg/dL (0.0-1.2) Aspartate Amino Transf (AST/SGOT) 23U/L (0-50) Alanine Aminotransferase (ALT/SGPT) 13U/L (0-44) Alkaline Phosphatase 127U/L (25-160) C-Reactive Protein 0.9mg/dL (0.0-0.5) Total Protein 6.4g/dL (6.4-8.4) Albumin 3.2g/dL (3.4-5.0) Procalcitonin 0.05ng/mL (0.00-0.08) Urine Color Dark yellow (YELLOW) Urine Appearance Clear (CLEAR,HAZY) Urine pH 7.5 (5.0-8.0) Urine Specific [place] 1.015 (1.003-1.035) Urine Protein Negativemg/dL (NEG,TRACE) Urine Glucose (UA) Negativemg/dL (NEGATIVE) Urine Ketones Negativemg/dL (NEGATIVE) Urine Occult Blood Negative (NEGATIVE) Urine Nitrite Negative (NEGATIVE) Urine Bilirubin Negative (NEGATIVE) Urine Urobilinogen Normalmg/dL (NORMAL) Urine Leukocyte Esterase Negative (NEGATIVE) Urine RBC 0-2/hpf (0-2) Urine WBC 0-5/hpf (0-5) Urine Epithelial Cells Occasional/hpf (NONE-MOD) Urine Crystals None seen (NONE SEEN) Urine Bacteria None/hpf (NONE-FEW) Urine Hyaline Casts None/lpf (NONE) Urine Granular Casts None seen (NONE SEEN) Urine Waxy Casts None seen (NONE SEEN) Urine Red Blood Cell Casts None seen (NONE SEEN) Urine White Blood Cell Casts None seen (NONE SEEN) Urine Mucus None seen (None Seen) Urine Trichomonas None seen (NONE SEEN) Urine Yeast None (NONE SEEN) Urine Culture Reflexed Not indicated Assessment/Plan Assessment/Plan A: * Pharmacy asked to dose vancomycin and levofloxacin for 61 y/o diabetic man with lower left leg cellulitis * His estimated CrCl is 120 mL/min (Cockcroft & Gault) * Estimated vancomycin half-life is 7 hours and estimated vancomycin Vd is 72 liters P: * Start levofloxacin 500 mg IV every 24 hours for 7 to 10 days depending on improvement * Convert to PO levofloxacin when appropriate * Start vancomycin 2000 mg IV every 12 hours * Target vancomycin trough range of 10 - 15 mcg/mL * Draw a vancomycin trough level prior to the fourth dose Thank you. Pharmacy will continue to follow this patient. Ana Dumont, PharmD Ana Dumont Aug 01, 2016 04:16
[2016-08-01] MEDS ORDERED: diphenhydrAMINE 50 mg Capsule PO PRN (05:00)
[2016-08-01 07:27] LABS: BASOPHILS % (AUTO) 1.4 % (0-3); EOSINOPHILS % (AUTO) 11.8 % (0-5); MONOCYTES % (AUTO) 14.5 % (4-12); Mean Corpuscular Hemoglobin 31.3 pg (27.0-35.0); Mean Corpuscular Volume 87.7 fL (81-100); Platelet Count 61 bil/L (150-400)
[2016-08-01] MEDS ORDERED: Levofloxacin 500 mg/100 mL D5W IV SCH (08:30)
[2016-08-01] MEDS ORDERED: Vancomycin Dose per Pharmacist XX SCH (08:30)
[2016-08-01] MEDS ORDERED: Levofloxacin 750 mg/150 mL D5W IV SCH (08:30)
[2016-08-01] MEDS: Sodium Chloride LOK Flush 10 mL Syringe IVFLUSH SCH ×2 (08:30→16:30)
[2016-08-01] MEDS: Potassium Chloride 20 mEq SR Tablet PO SCH (08:31)
[2016-08-01] MEDS: Famotidine Inj 20 MG in IV Premix 1 EACH IV SCH ×2 (08:32→20:37)
--- NOTE | 2016-08-01 08:56 | DRSVH ---
PROCEDURE: US VEINOUS LEG DUPLEX UNILATERAL, LEFT INDICATIONS: left leg swelling, elevated ddimer TECHNIQUE: Real-time imaging, as well as color and pulse Doppler interrogation, were performed of the lower extr emity deep veins from the inguinal ligament to the popliteal fossa. COMPARISON: None. FINDINGS: The deep veins are normally compressible, and free of intraluminal thrombus. Color and pu lse Doppler demonstrate normal phasic intraluminal flow. There is normal augmentation response to di stal compression maneuver. 1 cm groin lymph node which has a normal morphologic appearance. Edema p resent within the lower leg. IMPRESSION: 1. No deep venous thrombosis identified within the left lower extremity. 2. Left groin lymph node measuring roughly 1.0 cm. Recommend clinical correlation and management. Dictated by: Peter DIXON Interpreted: Roman Albarado MD on 08/01/2016 at 8:55 Transcribed by: JOHANA on 08/01/2016 at 8:56 Approved by: Roman Albarado M.D. on 08/01/2016 at 11:31
--- NOTE | 2016-08-01 09:16 | DRSVH ---
PROCEDURE: X-RAY LEFT KNEE, THREE VIEWS ([id number]) INDICATIONS: left leg cellulitis TECHNIQUE: 3 views of the knee were acquired. COMPARISON: [facility], CR, XR KNEE 3VW LT, 05/29/2016, 19:14. FINDINGS: Bones: Stable appearance of left knee arthroplasty. No fractures or dislocations. No suspicious [place] lesions. Soft tissues: Small joint effusion. No suspicious soft tissue calcifications. Mottled soft tissues. IMPRESSION: 1. Stable appearance of left knee arthroplasty. 2. Although no bony erosions are identified, plain film radiography is relatively insensitive in the acute phases of osteomyelitis and may not demonstrate radiographic changes for 15 days. If acute ost eomyelitis is of clinical concern, nuclear medicine regional bone scan or MRI is recommended. 3. Mottled appearance of the soft tissues which may be related to edema but cellulitis cannot be excl uded. Dictated by: Peter Edouard [facility] Interpreted: Roman Albarado MD on 08/01/2016 at 9:14 Transcribed by: JOHANA on 08/01/2016 at 9:16 Approved by: Roman Albarado M.D. on 08/01/2016 at 11:08
[2016-08-01] MEDS ORDERED: Vancomycin Inj 2,000 MG in 0.9% Sodium Chloride 500 ML IV SCH (11:00)
--- NOTE | 2016-08-01 11:29 | NUR ---
Case Management: IMM given and explained to pt at bedside at 11:20 am. No questions at this time. Signed original placed on hard chart, copy given to pt. BRANDIN Kirkpatrick RN
--- NOTE | 2016-08-01 11:29 | NUR ---
Social Work Note - Initial Assessment: D/A: See Initial Assessment. The Pt is a 61 y/o male that was admitted under observation status for left leg cellulitis. The Pts PCP is listed as [facility] and his insurance is Medicare, no LTC or VA benefits reported. EMR reviewed. The Pt lives independently in a one level home in [place] with his significant other. The Pt does not have Advanced Directive paperwork on file, paperwork given to the Pt. He continues to drive and does not use any DME at this time. The Pt reports a HH history with [facility] and stated that he was at an unknown SNF for about three months in the past. Pt being followed by MD Goff as OtPt. PT and ID consult pending. The Pt denies any needs at this time, SW to follow if needs arise. P: The Pt will likely discharge home with significant other providing POV transportation when medically stable. The Pt denies any needs at this time, SW to follow if needs arise. NIGEL Duron Farm Agent VICENTA Rasmussen Addendum: 08/01/16 at 1130 by JORDAN CAMACHO SS Amended: Links added.
--- NOTE | 2016-08-01 14:58 | DRSVH ---
PROCEDURE: X-RAY LEFT TIBIA/FIBULA, TWO VIEWS ([id number]) INDICATIONS: r/o osteomylietis TECHNIQUE: 2 views of the tibia and fibula were acquired. COMPARISON: [facility] [place], CR, XR TIBIA FIBULA 2VW LT, 06/19/2016, 8:24. FINDINGS: Bones: No fractures or dislocations. No suspicious bony lesions. Left total knee arthroplasty pres ent with hardware in expected position. Bones are osteopenic. No periosteal reaction. Old distal f ibular shaft fracture. Soft tissues: No suspicious soft tissue calcifications or masses. IMPRESSION: Although no bony erosions are identified, plain film radiography is relatively insensiti ve in the acute phases of osteomyelitis and may not demonstrate radiographic changes for 15 days. If acute osteomyelitis is of clinical concern, nuclear medicine triple phase bone scan or MRI is recomm ended. Dictated by: Peter Edouard [facility] Interpreted: Roman Albarado MD on 08/01/2016 at 14:57 Transcribed by: JOHANA on 08/01/2016 at 14:58 Approved by: Roman Albarado M.D. on 08/01/2016 at 19:33
--- NOTE | 2016-08-01 15:44 | NUR ---
Wound Care Wound evaluation order received and patient seen at bedside today with nursing. 61 yo diabetic male admitted with cellulitis of his left leg. Of note patient has been on doxycycline chronically secondary to MRSA infection associated with his left TKA. Patient also has a history of hepatitis and cirrhosis. Patient presents with a left pretibial ulcer measuring 1 cm L x 1.5 cm W x 0.2 cm D; he also has a scabbed wound just distal to this open ulcer which is 0.6 cm L x 0.7 cm W x flush. Open area is draining scant yellowish fluid and the right and left legs are mildly edematous and erythematous. Pulses are bounding at DP and TRAP SETTER bilaterally. Believe guo wound is due to trauma and resistant to healing secondary to diabetes,edema and stasis disease. Wound was cleaned with saline and redressed with adhesive foam dressing and legs wrapped with matias wraps. Nursing to change dressings q 48 hrs and patient can follow up with wound center on discharge.
--- NOTE | 2016-08-01 16:29 | CONS ---
[address] [address] CONSULTATION REPORT PATIENT: SHERITA MEDINA : 1955 MR#: [id number] ADMIT: 08/01/2016 JOB ID: [id number] DATE OF SERVICE: 08/01/2016 INFECTIOUS DISEASE CONSULTATION: REASON FOR CONSULTATION: Left lower extremity infection with chronic possible underlying hardware infection. I thank Dr. Manuel Chadwick for this timely consult. HISTORY OF PRESENT ILLNESS: The patient is a complex 61-year-old gentleman who is well known to me from prior admissions as well as visits to my clinic. His relevant past medical history includes severe diabetes with neuropathy as well as two left total knee replacements. His first total knee was lost to MRSA infection and a second total knee was placed just over a year ago. Because the orthopedic surgeon felt that perhaps the second left total knee was infected, he was placed on lifelong suppression with doxycycline and advised that he might eventually require an AKA. He also has bilateral venous insufficiency of the lower extremities as well as cirrhosis due to hepatitis C, and a history of recurrent C difficile and MRSA. The patient has been falling along with me in clinic and he has been taking doxycycline as chronic prophylaxis for what may be a chronically infected left prosthetic knee. Note that there are no positive cultures from that second knee replacement to prove that, however. The patient was also admitted back in the fall of 2016 here with a swollen tender red 3rd toe in association with some short-lived fevers. That was treated with oral levofloxacin which the patient tolerated well and there was no subsequent problem. More recently, he has been back on his chronic doxycycline prophylaxis. This admission starts about 10 days ago when he started to notice increased swelling of both his lower extremities. This is a recurrent problem for the patient and it was worse on the left than the right over the past 10 days or so. He then bumped his left guo about a week or so ago while it was still swollen and then noticed that he started to spontaneously drain serosanguineous fluid from a couple small openings over the mid and anterior tibia. His left leg continued to swell and became painful, red and swollen and became much worse in the day leading up to his emergency department visit and admission yesterday. Despite this problem ongoing in the middle of his left tibia area, there was no issue with the knee which continued to have a reasonable range of motion and he actually notes that over the past year so his rather stiff and not terribly useful left prosthetic knee has began to improve slowly and he is now able to walk without too much difficulty. He has noticed no restriction of his range of motion in that left knee or any back sliding with respect to its function whatsoever during the course of the last 10 days or so. In association with this bump to a swollen lower extremity and drainage, he has noticed the redness around the leg but no fevers, chills and sweats. The patient has had no new pulmonary symptoms. Denies cough, shortness of breath or chest pain. He has had no additional problems with his liver that he is aware of such as GI bleeding or ascites. PAST MEDICAL HISTORY: 1. Diabetes with severe peripheral neuropathy. 2. Left total knee replacement x2 with the first one lost to infection and the second one placed in early 2015. 3. Chronic bilateral venous insufficiency of the lower extremities. 4. Cirrhosis secondary to hepatitis C which was subsequently cured with therapy. 5. 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 6. History of C. difficile. 7. Chronic pain requiring opiates. SOCIAL HISTORY: The patient is a non smoker. He drank alcohol until about a decade ago and quit. He uses oral narcotics. FAMILY HISTORY: Including all first-degree relatives negative for TB. REVIEW OF SYSTEMS: The patient today, of course, reports pain in the lower extremity below the knee which is the main reason he came in here but he denies fevers, chills or sweats. He has no headache, visual change or sore throat. He had no cough, shortness of breath or chest pain. No nausea, vomiting, diarrhea or dysuria. He notes that his bilateral lower extremity swelling that was so severe even when he came in yesterday is already much better though he continues to have quite a bit of pain in the left mid guo. Remainder of the review of systems is completely negative. PHYSICAL EXAMINATION: Reveals an afebrile gentleman, and he has been afebrile since admission. Temperature 36.9, pulse 80, respiratory rate 18, blood pressure 137/71. He is saturating 97% on room air. Examination of the head: No trauma. Eyes without scleral icterus or conjunctivitis. Oral cavity is benign. No pharyngitis or thrush is noted. Neck is supple without adenopathy. Lungs clear posteriorly. Cardiac tones: Regular rate and rhythm without notable murmur. The abdomen is slightly distended. No organomegaly is noted. He does not have evident ascites today. No suprapubic fullness. No Loera catheter. No inguinal adenopathy noted. He has minimal bilateral edema of the lower extremities and I do not detect any erythema on either side. His knees have long scars consistent with his two prosthetic knee replacements. His left knee overall though is more functional than prior occasions I have seen him as an inpatient or an outpatient. He has actually reasonable range of motion involving the left knee and there is no warmth, evident effusion or tenderness. Over his anterior guo about midway down, there are two shallow lesions over the tibia, one about 1 cm across and one about 4 mm. These have the appearance of abrasions as he stated he had recently run into some furniture accidentally and they appear completely uninfected. I see no evidence really at this point for cellulitis in the left lower extremity. He has venous insufficiency in both lower extremities which is quite pronounced with venous stasis changes. Neurologically, the patient has very little sensation if any in his feet. His motor strength is good throughout, however, and his mental status is normal. LABORATORIES: Include white count 2200. Note that the patient always has a bit of a low white count, usually around 3000 or 4000 on prior visits. He came in yesterday at 4000, today 2200. The differential is normal and he is not neutropenic. The neutrophil count is normal. Neutrophil percent is normal and he is not neutropenic but he does have eosinophilia which he has had off and on in the past. It is currently 11.8% which is quite high for him. Platelets 61,000 consistent with his history of cirrhosis. Creatinine 0.54. Total bilirubin 1.4. ALT and AST are normal. Streptozyme is pending. Blood cultures are pending but negative so far. A MRSA screen of the nares was just done and results should be available soon. X-ray of the left knee shows a stable appearance of the left knee arthroplasty. Ultrasound of the left lower extremity is negative for clot though a 1 cm lymph node was noted and an x-ray of the left tibia and fibula shows no bony lesions. IMPRESSION: At this point, I see little evidence to suggest a severe ongoing infection. It sounds as if the patient had developed some progressive edema of both lower extremities over the past 7-10 days and then banged his left guo against some furniture producing an abrasion which subsequent started weeping due to the edema in his left lower extremity. He also had a considerable amount of pain there, but at this point, having been in the hospital 24 hours, I see very little with respect to his left lower extremities to suggest an out of control infection. The patient has been started on vanc and levofloxacin as levofloxacin was the drug that was chosen last time in this case, but I think that these antibiotics might reasonably be modified today. I am never enthusiastic about using vanc in patients with cirrhosis for fear of hepatorenal syndrome but it might be reasonable in the very short term to cover him for staph and strep with vanco while we await additional data. The levo can probably be discontinued at this time as the probability of a gram-negative infection is very low here. RECOMMENDATIONS: 1. Will continue with vanco. 2. ASO titer will be repeated. 3. We await the pending blood cultures. 4. Will continue to closely follow this patient with you but I suspect we may be able to truncate this course of intravenous antibiotics very quickly and get the patient out of the hospital fairly soon. Thank you very much for this consult.
--- NOTE | 2016-08-01 18:43 | NUR ---
Pain Pt reports L leg pain as "10/10" for much of the shift. He reports pain is temporarily reduced after 15mg of oxycodone has been given but that it doesn't last long. Patient requesting that the pain medication be given more frequently. Doctor notified. No changes to orders at this time. Legs elevated on pillows. L leg wounds were cleaned, nonadherent pads applied and matias wrapped. Up to bathroom, gait is steady.
[2016-08-01] MEDS: Insulin Human REGular 300 Unit/3 mL Inj SUBQ SCH (21:18)
--- NOTE | 2016-08-01 22:51 | PCM.PNMED ---
Subjective Date of Service Aug 01, 2016 Subjective When I entered the room the patient was sleeping. I had to turn on the bright lights and awaken him. After he awakened and I questioned and examined him, he then asked me for more pain medicine, even though he appeared perfectly comfortable and was sleeping when I arrived in the room. The patient has no new complaints. Exam Vital Signs Vital Sign - Last Date Time Temp Pulse Resp B/P Pulse Ox O2 Delivery O2 Flow Rate FiO2 08/01/16 18:06 36.8 80 24 157/87 99 Room Air Intake and Output 07/31/16 07/31/16 08/01/16 Cumulative From/Thru 15:00 23:00 07:00 07/31/16 19:29 - 08/01/16 06:02 Intake Total 1225 ml 1225 ml Output Total 700 ml 700 ml Balance 525 ml 525 ml Intake Oral 400 ml 400 ml IV Total 825 ml 825 ml Output Urine Total 700 ml 700 ml Exam General: Patient was asleep when I entered the room and appears to be in no apparent distress. HEENT: Head is atraumatic and normocephalic. Eyes: Pupils are pinpoint but equally round and reactive to light and accommodation. Extraocular muscles are intact. Sclera are white, anicteric. Subconjunctival mucosa is pink. Ears and nose are unremarkable. Oropharynx: There is no mucosal lesions, there is no thrush, there is no pharyngitis. Neck: Is supple, there are no nodes, or masses or tenderness. Chest: Is clear to auscultation and percussion. There are no rales, rhonchi, wheezes or rubs. Heart: Rate, rhythm is regular. There is no murmur, rub or gallop. Abdomen: Good bowel sounds are present. Abdomen is soft, nontender, no organomegaly or masses were appreciated. Extremities: Are symmetrical and well perfused. There is a decrease edema due to wrinkling of the skin and significant evidence for decreased erythema. Neurologic: There are no focal neurological deficits. Cranial nerves II through XII are intact. There are no sensory or motor deficits. Psychiatric: Patients mood is calm and shows no sign of agitation. Genital: Deferred Rectal: Deferred Lab and Diagnostics Result Diagram: 08/01/16 0650 08/01/16 0650 Microbiology MRSA screen is negative Cultures are negative to date. X-Rays, CTs and MRIs XR left knee No derangement of prostatic device No gas noted on XR No derangement of joint mild soft tissue edema Additional Diagnostics US Soft Tissue/Musculoskeletal CONCLUSION: No evidence of left lower extremity deep vein thrombosis. Soft tissue edema and groin lymph nodes raising possibility of cellulitis. Please correlate clinically. Radiologist: Izaiah Whitten MD Assessment & Plan The patient is a 61 y.o. M with medial history of DM, HTN, Chronic venous stasis , hepatitis C with cirrhosis and a history of chronic pain, knee replacements on two occasions on the left knee, most recently in May 2015. Admitted for treatment of left lower leg cellulitis. 1. Left lower leg cellulitis, acute - Secondary to traumatic injury and uncontrolled type II DM, history of MRSA infection - Continue IVF NS @ 100 mls/hr - Continue IV antibiotics Vancomycin per pharmacy. [place] has discontinued levofloxacin and I agree with this decision - Repeat CBC, BMP in AM - Streptozyme ordered - Blood cultures ordered - XR Left tibia and fibula ordered for AM - Pain control oxycodone 15 mg Q 6 hours - Appreciate infectious disease consultation with Dr. Goff and will follow his recommendations. 2. Hyperglycemia due to uncontrolled Diabetes, non DKA, acute on chronic - History of uncontrolled Type II DM - High dose correctional scale ordered - Continue to monitor 3. Acute Kidney Injury - Secondary to DM and dehydration - We will do discontinue IVF NS, as patient is eating and drinking - Repeat BMP in AM Chronic Conditions C diff November 2015, presumed stable - Continue to monitor Chronic venous stasis, presumed stable - No history of ankle brachial index Hepatitis C, now treated, presumed stable - Avoid hepatotoxic medications Bilateral lower extremity knee arthritis s/p bilateral knee replacement, presumed stable - CXR L knee showed no derangement of prosthesis On chronic opiates, with history of drug-seeking behavior - Specific request of IV dilauded - We will continue to control pain with PO medications Hx of septic joint - on doxycycline life long per ID Anxiety - Continue home medication Patient is admitted under observation status with expected length of stay less than 2 midnights due to severity of presenting symptoms, risk of adverse event, CODE STATUS FULL CODE DVT prophylaxis: SUB Q HEPARIN GI PROPHYLAXIS: Famotidine Pain Evaluation: Adequate Pain Control GI Prophylaxis: H2 oswald VTE Prophylaxis: Sub-Q Heparin (Unfractionated) Resuscitation Status: CPR: Attempt Resuscitation Saad Ham MD Aug 01, 2016 22:51
[2016-08-02] MEDS: Sodium Chloride LOK Flush 10 mL Syringe IVFLUSH SCH ×4 (00:30→23:34)
[2016-08-02] MEDS: Heparin 5,000 Unit/mL Inj SUBQ SCH ×4 (01:42→23:34)
[2016-08-02] MEDS: Insulin Human REGular 300 Unit/3 mL Inj SUBQ SCH ×5 (02:30→21:41)
[2016-08-02 05:59] VITALS: BP 134/81; PULSE 96; RESP 16; O2SAT 96
--- NOTE | 2016-08-02 07:44 | NUR ---
Pain Pt reporting more tolerable pain w/ q4 oxy order. Pt has continued to request pain meds consistently though, no evidence of oversedation present.
[2016-08-02] MEDS: Famotidine Inj 20 MG in IV Premix 1 EACH IV SCH (07:50)
[2016-08-02] MEDS: Potassium Chloride 20 mEq SR Tablet PO SCH (07:51)
[2016-08-02 08:46] LABS: BASOPHILS % (AUTO) 0.8 % (0-3); EOSINOPHILS % (AUTO) 11.3 % (0-5); MONOCYTES % (AUTO) 10.9 % (4-12); Mean Corpuscular Hemoglobin 30.8 pg (27.0-35.0); Mean Corpuscular Volume 87.2 fL (81-100); NEUTROPHILS % (AUTO) 47.8 % (40-74); Platelet Count 66 bil/L (150-400)
--- NOTE | 2016-08-02 10:16 | PROG NOTE ---
[address] [address] PROGRESS NOTE PATIENT: SHERITA MEDINA : 1955 MR#: [id number] ADMIT: 08/01/2016 JOB ID: [id number] DATE: 08/02/2016 INFECTIOUS DISEASE FOLLOW UP NOTE: REASON FOR FOLLOW UP: Left lower extremity cellulitis. INTERVAL HISTORY: Overnight, the patient reports he has had some pain in his left foot and ankle on the left side but no issues with the left prosthetic knee. He has had no fevers, but he has noted some subjective chills. No cough, shortness of breath or abdominal pain. PHYSICAL EXAMINATION: Reveals an afebrile gentleman, temperature 36.6, pulse 96, respiratory rate 16, blood pressure 134/81. He is saturating well on room air and in no distress at all. Oral cavity negative. Lungs fairly clear. Cardiac tones without new murmur. Abdomen soft and nontender. The left knee flexes to about 90 degrees and is normal in extension. There is no warmth or tenderness around the knee. The left foot and ankle has mild erythema but not impressive and slightly warm to touch. LABORATORIES: Include a white count of 2600, again thrombocytopenia 66,000. Of course, the patient is cirrhotic. He has 11% eosinophils. Creatinine 0.5. LFTs are normal. Streptozyme 290. MRSA PCR negative. Blood cultures negative. X-ray of the tibia and fibula did not identify evidence of osteo. IMPRESSION: It would appear the patient has had a significant strep infection sometime within the last few weeks and I think it is possible that he has some degree of group A strep cellulitis at this point. Nonetheless it is quite mild and I think we could probably rapidly transition the patient to oral antibiotics for discharge in the next day or two. RECOMMENDATIONS: 1. I would discontinue vanco as we have no evidence of MRSA. 2. Ceftriaxone 2 g once a day will be started and continued in the hospital. 3. As the patient continues to improve, he could probably be discharged on a short course of an oral cephalosporin with an eventual transition back to his chronic suppressive doxy for what may be a chronically infected left prosthetic knee.
[2016-08-02] MEDS ORDERED: Vancomycin Serum Trough XX ONE (10:30)
[2016-08-02] MEDS: cefTRIAXone Inj 2,000 MG in Dextrose 5% Minibag Plus 50 ML IV SCH (11:38)
[2016-08-02 14:43] VITALS: BP 152/82; PULSE 85; RESP 16; O2SAT 98
--- NOTE | 2016-08-02 15:51 | NUR ---
Social Work Note - Continued Discharge Planning: D/A: The Pt is a 61 y/o male that was admitted for left leg cellulitis. Wound Care and ID involved. Pt to have IV ABx until Friday 08/04. The Pt is not eligible for HH due to lack of homebound status. The Pt denies any needs at this time. SW to follow if needs arise. P: The Pt is not medically stable for discharge, will likely discharge home with family providing POV transportation when medically stable. Pt to have IV ABx until 08/04. The Pt denies any needs at this time. SW to follow if needs arise. Alana Whelan, [employer] NIGEL Stewart
--- NOTE | 2016-08-02 18:57 | NUR ---
Pain/wound- Patient complaining consistently of 8-02/13 . Ordered Oxycodone 15mg given as ordered. Patient usually is asleep when I return to do my pain reassessment. Patient showered and left lower extremity dressings changed afterwards.
[2016-08-02 20:22] VITALS: BP 128/82; PULSE 85; RESP 16; O2SAT 98
--- NOTE | 2016-08-02 23:16 | PCM.PNMED ---
Subjective Date of Service Aug 02, 2016 Subjective The patient has no new complaints. Surprisingly, he did not ask me for any increase in his pain medication. Exam Vital Signs Vital Sign - Last Date Time Temp Pulse Resp B/P Pulse Ox O2 Delivery O2 Flow Rate FiO2 08/02/16 20:22 36.8 85 16 128/82 98 Room Air Intake and Output 08/01/16 08/01/16 08/02/16 Cumulative From/Thru 15:00 23:00 07:00 07/31/16 19:29 - 08/01/16 18:29 Intake Total 2300 ml 3525 ml Output Total 3525 ml 4225 ml Balance -1225 ml -700 ml Intake Oral 400 ml IV Total 2300 ml 3125 ml Output Urine Total 3525 ml 4225 ml Exam General: Patient was asleep when I entered the room again today and appears to be in no apparent distress. Again surprisingly, he did not ask me for an increase in his pain medication today. HEENT: Head is atraumatic and normocephalic. Eyes: Pupils are pinpoint but equally round and reactive to light and accommodation. Extraocular muscles are intact. Sclera are white, anicteric. Subconjunctival mucosa is pink. Ears and nose are unremarkable. Oropharynx: There is no mucosal lesions, there is no thrush, there is no pharyngitis. Neck: Is supple, there are no nodes, or masses or tenderness. Chest: Is clear to auscultation and percussion. There are no rales, rhonchi, wheezes or rubs. Heart: Rate, rhythm is regular. There is no murmur, rub or gallop. Abdomen: Good bowel sounds are present. Abdomen is soft, nontender, no organomegaly or masses were appreciated. Extremities: Are symmetrical and well perfused. There continues to be slight decrease in edema evident due to wrinkling of the skin and significant evidence for decreased erythema. Neurologic: There are no focal neurological deficits. Cranial nerves II through XII are intact. There are no sensory or motor deficits. Psychiatric: Patients mood is calm and shows no sign of agitation. Genital: Deferred Rectal: Deferred Lab and Diagnostics Result Diagram: 08/02/16 0745 08/02/16 0745 Microbiology MRSA screen is negative Cultures are negative to date. X-Rays, CTs and MRIs XR left knee No derangement of prostatic device No gas noted on XR No derangement of joint mild soft tissue edema Additional Diagnostics US Soft Tissue/Musculoskeletal CONCLUSION: No evidence of left lower extremity deep vein thrombosis. Soft tissue edema and groin lymph nodes raising possibility of cellulitis. Please correlate clinically. Radiologist: Izaiah Whitten MD Assessment & Plan The patient is a 61 y.o. M with medial history of DM, HTN, Chronic venous stasis , hepatitis C with cirrhosis and a history of chronic pain, knee replacements on two occasions on the left knee, most recently in May 2015. Admitted for treatment of left lower leg cellulitis. 1. Left lower leg cellulitis, acute - Secondary to traumatic injury and uncontrolled type II DM, history of MRSA infection - Patient is eating and drinking well we have discontinued IV fluids. - Continue IV antibiotics. Dr. Goff was consulted and has discontinued the vancomycin and previously the Levaquin. He will start Rocephin 2 g IV every 24 hours. I agree with this decision and will continue Rocephin. - Repeat CBC, BMP in AM - Streptozyme ordered and was elevated - Blood cultures ordered - XR Left tibia and fibula ordered for AM - Pain control oxycodone 15 mg Q 6 hours - Appreciate infectious disease consultation with Dr. Goff and will follow his recommendations. 2. Hyperglycemia due to uncontrolled Diabetes, non DKA, acute on chronic - History of uncontrolled Type II DM - High dose correctional scale ordered - Continue to monitor 3. Acute Kidney Injury - Secondary to DM and dehydration - We will do discontinue IVF NS, as patient is eating and drinking - Repeat BMP in AM Chronic Conditions C diff November 2015, presumed stable - Continue to monitor Chronic venous stasis, presumed stable - No history of ankle brachial index Hepatitis C, now treated, presumed stable - Avoid hepatotoxic medications Bilateral lower extremity knee arthritis s/p bilateral knee replacement, presumed stable - CXR L knee showed no derangement of prosthesis On chronic opiates, with history of drug-seeking behavior - Specific request of IV dilauded - We will continue to control pain with PO medications Hx of septic joint - on doxycycline life long per ID Anxiety - Continue home medication Patient is admitted under observation status with expected length of stay less than 2 midnights due to severity of presenting symptoms, risk of adverse event, CODE STATUS FULL CODE DVT prophylaxis: SUB Q HEPARIN GI PROPHYLAXIS: Famotidine Pain Evaluation: Adequate Pain Control GI Prophylaxis: H2 oswald VTE Prophylaxis: Sub-Q Heparin (Unfractionated) Resuscitation Status: CPR: Attempt Resuscitation Saad Ham MD Aug 02, 2016 23:16
[2016-08-03 02:00] VITALS: BP 153/90; PULSE 84; RESP 18; O2SAT 99
--- NOTE | 2016-08-03 05:51 | NUR ---
Pain Pt. continues seeking pain meds for left lower leg, given prn oxycodone, pt. able to elevate lower extremities, offered ice pack pt.refused.
[2016-08-03] MEDS: Potassium Chloride 20 mEq SR Tablet PO SCH (07:47)
[2016-08-03] MEDS: Insulin Human REGular 300 Unit/3 mL Inj SUBQ SCH ×3 (07:54→17:13)
[2016-08-03] MEDS: Sodium Chloride LOK Flush 10 mL Syringe IVFLUSH SCH ×2 (09:05→17:14)
[2016-08-03] MEDS: Heparin 5,000 Unit/mL Inj SUBQ SCH ×2 (09:10→17:12)
[2016-08-03 10:00] VITALS: BP 150/86; PULSE 77; RESP 18; O2SAT 96
[2016-08-03] MEDS: cefTRIAXone Inj 2,000 MG in Dextrose 5% Minibag Plus 50 ML IV SCH (10:21)
--- NOTE | 2016-08-03 10:52 | PROG NOTE ---
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 INTERVAL HISTORY: The patient reports that overnight he had some chills and still had some pain in his left lower extremity. As is often the case during his hospitalization, he is extremely concerned about the possibility of being discharged too early. This may reflect the fact that his significant other will be out of the house for at least a couple days and I think he is partly afraid of being there alone and having recently been ill. The patient denies fever. He is having no GI symptoms and no pulmonary symptoms. PHYSICAL EXAMINATION: Reveals an afebrile comfortable man. Temperature 36.8, pulse 84, respiratory rate 18, blood pressure 153/90, saturating well on room air. No acute distress. Oral cavity negative. Lungs reasonably clear. Cardiac tones without change. Abdomen soft and nontender. His left knee continues to appear benign and it is felt the best I have seen it over the last couple years I have been seeing the patient. His left lower extremity below the knee still has evidence of very shallow skin ulcerations which appear almost uninfected to me. He also has very significant venous stasis changes bilaterally, more on the left than the right. LABORATORIES: Include a white count of 2600. It is always low as is the platelet count at 66,000 in this cirrhotic gentleman. Creatinine 0.5. His LFTs basically normal. Streptozyme modestly elevated at 290. Blood cultures and PCR for MRSA are negative. IMPRESSION/REC This patient seems to be doing quite well with respect to his cellulitis of his left lower extremity. This would appear to be a group A strep infection based on his positive ASO titer. At this point, he is looking reasonably well and I think he could probably be transitioned to oral therapy with activity against group A strep such as Keflex 500 4x daily within the near future. The patient is requesting he be allowed to stay through SundayAugust 06, but obviously this will be a decision for the hospitalist team. No other ID recommendations today. MTDD
[2016-08-03 14:30] VITALS: BP 125/73; PULSE 76; RESP 18; O2SAT 98
--- NOTE | 2016-08-03 16:46 | NUR ---
EDYTA EDYTA signed
[2016-08-03 18:05] VITALS: BP 144/83; PULSE 63; RESP 18; O2SAT 100
--- NOTE | 2016-08-03 18:07 | NUR ---
Pain/mobility Patient reporting 5-8/10 pain level this shift, well managed with oxycodone 15mg Q 4H religiously. Ambulating fairly in the room and up to the bathroom independently. Considering discharge tomorrow. Will continue to monitor.
[2016-08-03] MEDS ORDERED: Glucose 40% Oral Gel 15 Gm Tube PO PRN (19:40)
[2016-08-03] MEDS: Insulin LISPRO 300 Unit/3 mL Inj SUBQ SCH (22:12)
[2016-08-03 22:15] VITALS: BP 123/73; PULSE 92; RESP 17; O2SAT 99
--- NOTE | 2016-08-03 23:18 | PCM.PNMED ---
Subjective Date of Service Aug 03, 2016 Subjective The patient states that previous admission he was discharged early and ended up coming back to his infection for another 10 days as an inpatient. He is very concerned that he may be discharged to early as asking him to continue his IV antibiotics through Sunday. He has no other new complaints today and he is in better spirits than he gained a little bit better. Exam Vital Signs Vital Sign - Last Date Time Temp Pulse Resp B/P Pulse Ox O2 Delivery O2 Flow Rate FiO2 08/03/16 22:15 36.8 92 17 123/73 99 08/03/16 14:30 Room Air Intake and Output 08/02/16 08/02/16 08/03/16 Cumulative From/Thru 15:00 23:00 07:00 07/31/16 19:29 - 08/03/16 05:45 Intake Total 900 ml 1380 ml 600 ml 6405 ml Output Total 1000 ml 5225 ml Balance 900 ml 380 ml 600 ml 1180 ml Intake Oral 600 ml 600 ml 1600 ml IV Total 300 ml 1380 ml 4805 ml Output Urine Total 1000 ml 5225 ml # Voids 5 4 9 # Bowel Movements 0 0 0 Exam General: Patient was asleep again when I entered the room today with his nurse Mari and appears to be in no apparent distress. Again surprisingly, he did not ask me for an increase in his pain medication today. HEENT: Head is atraumatic and normocephalic. Eyes: Pupils are pinpoint but equally round and reactive to light and accommodation. Extraocular muscles are intact. Sclera are white, anicteric. Subconjunctival mucosa is pink. Ears and nose are unremarkable. Oropharynx: There is no mucosal lesions, there is no thrush, there is no pharyngitis. Neck: Is supple, there are no nodes, or masses or tenderness. Chest: Is clear to auscultation and percussion. There are no rales, rhonchi, wheezes or rubs. Heart: Rate, rhythm is regular. There is no murmur, rub or gallop. Abdomen: Good bowel sounds are present. Abdomen is soft, nontender, no organomegaly or masses were appreciated. Extremities: Are symmetrical and well perfused. There continues to be slight decrease in edema evident due to wrinkling of the skin and significant evidence for decreased erythema. The wounds on the left lower extremity appear to be healing. Neurologic: There are no focal neurological deficits. Cranial nerves II through XII are intact. There are no sensory or motor deficits. Psychiatric: Patients mood is calm and shows no sign of agitation. Genital: Deferred Rectal: Deferred Lab and Diagnostics Result Diagram: 08/02/16 0745 08/02/16 0745 Microbiology MRSA screen is negative Cultures are negative to date. X-Rays, CTs and MRIs XR left knee No derangement of prostatic device No gas noted on XR No derangement of joint mild soft tissue edema Additional Diagnostics US Soft Tissue/Musculoskeletal CONCLUSION: No evidence of left lower extremity deep vein thrombosis. Soft tissue edema and groin lymph nodes raising possibility of cellulitis. Please correlate clinically. Radiologist: Izaiah Whitten MD Assessment & Plan The patient is a 61 y.o. M with medial history of DM, HTN, Chronic venous stasis , hepatitis C with cirrhosis and a history of chronic pain, knee replacements on two occasions on the left knee, most recently in May 2015. Admitted for treatment of left lower leg cellulitis. 1. Left lower leg cellulitis, acute - Secondary to traumatic injury and uncontrolled type II DM, history of MRSA infection - Patient is eating and drinking well we have discontinued IV fluids. - Continue IV antibiotics. Dr. Goff was consulted and has discontinued the vancomycin and previously the Levaquin. He will start Rocephin 2 g IV every 24 hours. I agree with this decision and will continue Rocephin. - Repeat CBC, BMP in AM - Streptozyme ordered and was elevated - Blood cultures ordered - XR Left tibia and fibula ordered for AM - Pain control oxycodone 15 mg Q 6 hours - Appreciate infectious disease consultation with Dr. Goff and will follow his recommendations. 2. Hyperglycemia due to uncontrolled Diabetes, non DKA, acute on chronic - History of uncontrolled Type II DM - High dose correctional scale ordered - Continue to monitor 3. Acute Kidney Injury - Secondary to DM and dehydration - We will do discontinue IVF NS, as patient is eating and drinking - Repeat BMP in AM Chronic Conditions C diff November 2015, presumed stable - Continue to monitor Chronic venous stasis, presumed stable - No history of ankle brachial index Hepatitis C, now treated, presumed stable - Avoid hepatotoxic medications Bilateral lower extremity knee arthritis s/p bilateral knee replacement, presumed stable - CXR L knee showed no derangement of prosthesis On chronic opiates, with history of drug-seeking behavior - Specific request of IV dilauded - We will continue to control pain with PO medications Hx of septic joint - on doxycycline life long per ID Anxiety - Continue home medication Patient is admitted under observation status with expected length of stay less than 2 midnights due to severity of presenting symptoms, risk of adverse event, CODE STATUS FULL CODE DVT prophylaxis: SUB Q HEPARIN GI PROPHYLAXIS: Famotidine Pain Evaluation: Adequate Pain Control GI Prophylaxis: H2 oswald VTE Prophylaxis: Sub-Q Heparin (Unfractionated) Resuscitation Status: CPR: Attempt Resuscitation Saad Ham MD Aug 03, 2016 23:18
[2016-08-04] MEDS: Heparin 5,000 Unit/mL Inj SUBQ SCH ×3 (00:30→16:00)
[2016-08-04] MEDS: Sodium Chloride LOK Flush 10 mL Syringe IVFLUSH SCH ×3 (00:30→16:00)
[2016-08-04 06:48] LABS: BASOPHILS % (AUTO) 1.5 % (0-3); EOSINOPHILS % (AUTO) 14.3 % (0-5); MONOCYTES % (AUTO) 11.9 % (4-12); Mean Corpuscular Hemoglobin 30.7 pg (27.0-35.0); Mean Corpuscular Volume 86.9 fL (81-100); NEUTROPHILS % (AUTO) 42.8 % (40-74); Platelet Count 73 bil/L (150-400)
[2016-08-04 07:18] LABS: Magnesium 1.5 mg/dL (1.6-2.6)
[2016-08-04] MEDS: Potassium Chloride 20 mEq SR Tablet PO SCH (07:50)
[2016-08-04] MEDS: Insulin LISPRO 300 Unit/3 mL Inj SUBQ SCH ×4 (07:51→21:35)
--- NOTE | 2016-08-04 09:58 | PROG NOTE ---
[address] [address] PROGRESS NOTE PATIENT: SHERITA MEDINA : 1955 MR#: [id number] ADMIT: 08/01/2016 JOB ID: [id number] DATE: 08/04/2016 INFECTIOUS DISEASE FOLLOW UP NOTE: REASON FOR FOLLOWUP: Cellulitis. INTERVAL HISTORY: The patient reports that overnight he had some nausea and abdominal pain which has now resolved. He reports he also was chilled at times but has had no overt fevers. No shortness of breath or chest pain. No diarrhea and notes that his left knee continues to be functioning quite well though he does have some pain just above the ankle in the area of the cellulitis and minimal skin breakdown. PHYSICAL EXAMINATION: Reveals a comfortable, afebrile gentleman. Temperature 36.8, pulse 92, respiratory rate 17, blood pressure 123/73. He is in no acute distress. Mental status normal. Lungs clear. Cardiac tones without new murmur. Left lower extremity with the small shallow ulcers that were noted before which look relatively uninfected. No cellulitic changes are noted. LABORATORY STUDIES: White blood count 3300, platelet count 73. Creatinine 0.57. LFTs normal. Albumin 3.2. Procalcitonin 0. Streptozyme was positive. No new imaging. IMPRESSION: Overall, the patient seems to be doing well. It is unclear to me exactly what caused his abdominal pain and nausea last night but he appears quite well this morning. He has underlying diabetes, of course, and chronic liver disease. His cellulitis is likely due to group A strep and seems under excellent control. Though he could probably be discharged at any time, the patient reports his social situation is difficult and that he has no one to help him at home and he is very concerned about if he goes home too soon he will be readmitted. RECOMMENDATIONS: 1. Continue with ceftriaxone until he leaves. 2. Then discharge on Keflex 500 4x daily for one week. 3. At the conclusion of Keflex, he will resume his lifelong suppression with doxy. 4. I can follow the patient up in clinic in a month or so to see how things are going with his suppression. 5. ID will go ahead and sign off at this time. Thank you for involving us in this case.
[2016-08-04 10:00] VITALS: BP 133/69; PULSE 97; RESP 18; O2SAT 97
[2016-08-04] MEDS: cefTRIAXone Inj 2,000 MG in Dextrose 5% Minibag Plus 50 ML IV SCH (10:01)
[2016-08-04] MEDS ORDERED: Magnesium Sulf 4 Gm/100 mL H2O 4 GM in IV Premix 1 EACH IV ONE (10:15)
--- NOTE | 2016-08-04 13:29 | NUR ---
Wound Care Patient seen at bedside for wound care. Left anterior guo wound measures 1 cm L x 0.8 cm W x 0.1 CM D, Drainage scant and serous, no odor, no erythema, no edema. Wound base is pale red and granular. Wound cleaned with gauze mechanically, redressed with hydrogel and adhesive foam. Next dressing change by nursing 08/07 wound care to recheck 08/07.
[2016-08-04 14:30] VITALS: BP 124/77; PULSE 79; RESP 16; O2SAT 98
--- NOTE | 2016-08-04 14:46 | NUR ---
ABT/concern Seen by Dr. Ham this am, patient verbalizing concern of prior early discharge experience. Will continue 2 more days of IV antibiotic prior to d/c. Patient agree with the plan. Will continue to monitor.
[2016-08-04 22:01] VITALS: BP 115/71; PULSE 89; RESP 18; O2SAT 96
--- NOTE | 2016-08-04 22:44 | PCM.PNMED ---
Subjective Date of Service Aug 04, 2016 Subjective The patient states that the Lasix is having a significant effect on his urine output. Overall he states he is feeling better. However he does not feel it is safe for him to go home on oral Biaxin this time. He states that this happened once before and he was readmitted immediately for IV antibiotics for another 10 days. Exam Vital Signs Vital Sign - Last Date Time Temp Pulse Resp B/P Pulse Ox O2 Delivery O2 Flow Rate FiO2 08/04/16 22:01 37.0 89 18 115/71 96 Room Air Intake and Output 08/03/16 08/03/16 08/04/16 Cumulative From/Thru 15:00 23:00 07:00 07/31/16 19:29 - 08/04/16 05:26 Intake Total 1510 ml 800 ml 8715 ml Output Total 5225 ml Balance 1510 ml 800 ml 3490 ml Intake Oral 1450 ml 800 ml 3850 ml IV Total 60 ml 4865 ml Output Urine Total 5225 ml # Voids 10 4 23 # Bowel Movements 1 1 Exam General: Patient is in no apparent distress. Lying supine in bed. He sits up on the side of bed to urinate into a urinal. General: Patient was awake when I entered the room today with his nurse Mari and appears to be in no apparent distress. Again surprisingly, he did not ask me for an increase in his pain medication today. He did ask to stay until Sunday as mentioned above. HEENT: Head is atraumatic and normocephalic. Eyes: Pupils are pinpoint but equally round and reactive to light and accommodation. Extraocular muscles are intact. Sclera are white, anicteric. Subconjunctival mucosa is pink. Ears and nose are unremarkable. Oropharynx: There is no mucosal lesions, there is no thrush, there is no pharyngitis. Neck: Is supple, there are no nodes, or masses or tenderness. Chest: Is clear to auscultation and percussion. There are no rales, rhonchi, wheezes or rubs. Heart: Rate, rhythm is regular. There is no new murmur, rub or gallop. Abdomen: Good bowel sounds are present. Abdomen is soft, nontender, no organomegaly or masses were appreciated. Extremities: Are symmetrical and well perfused. There continues to be slight decrease in edema evident due to wrinkling of the skin and significant evidence for decreased erythema. The wounds on the left lower extremity continue to heal. Neurologic: There are no focal neurological deficits. Cranial nerves II through XII are intact. There are no sensory or motor deficits. Psychiatric: Patients mood is calm and shows no sign of agitation. Genital: Deferred Rectal: Deferred Lab and Diagnostics Result Diagram: 08/04/1662908/04/16629 Microbiology MRSA screen is negative Cultures are negative to date. X-Rays, CTs and MRIs XR left knee No derangement of prostatic device No gas noted on XR No derangement of joint mild soft tissue edema Additional Diagnostics US Soft Tissue/Musculoskeletal CONCLUSION: No evidence of left lower extremity deep vein thrombosis. Soft tissue edema and groin lymph nodes raising possibility of cellulitis. Please correlate clinically. Radiologist: Izaiah Whitten MD Assessment & Plan The patient is a 61 y.o. M with medial history of DM, HTN, Chronic venous stasis , hepatitis C with cirrhosis and a history of chronic pain, knee replacements on two occasions on the left knee, most recently in May 2015. Admitted for treatment of left lower leg cellulitis. 1. Left lower leg cellulitis, acute - Secondary to traumatic injury and uncontrolled type II DM, history of MRSA infection - Patient is eating and drinking well we have discontinued IV fluids. - Continue IV antibiotics. Dr. Goff was consulted and has discontinued the vancomycin and previously the Levaquin. He will start Rocephin 2 g IV every 24 hours. I agree with this decision and will continue Rocephin. - Repeat CBC, BMP in AM - Streptozyme ordered and was elevated - Blood cultures ordered - XR Left tibia and fibula ordered for AM - Pain control oxycodone 15 mg Q 6 hours - Appreciate infectious disease consultation with Dr. Goff and will follow his recommendations. 2. Hyperglycemia due to uncontrolled Diabetes, non DKA, acute on chronic - History of uncontrolled Type II DM - High dose correctional scale ordered - Continue to monitor 3. Acute Kidney Injury - Secondary to DM and dehydration - We will do discontinue IVF NS, as patient is eating and drinking well - Repeat BMP in AM Chronic Conditions C diff November 2015, presumed stable - Continue to monitor Chronic venous stasis, presumed stable - No history of ankle brachial index Hepatitis C, now treated, presumed stable - Avoid hepatotoxic medications Bilateral lower extremity knee arthritis s/p bilateral knee replacement, presumed stable - CXR L knee showed no derangement of prosthesis On chronic opiates, with history of drug-seeking behavior - Specific request of IV dilauded - We will continue to control pain with PO medications 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 Goff of ID Anxiety - Continue home medication Patient is admitted under observation status with expected length of stay less than 2 midnights due to severity of presenting symptoms, risk of adverse event, CODE STATUS FULL CODE DVT prophylaxis: SUB Q HEPARIN GI PROPHYLAXIS: Famotidine Pain Evaluation: Adequate Pain Control GI Prophylaxis: H2 oswald VTE Prophylaxis: Sub-Q Heparin (Unfractionated) Resuscitation Status: CPR: Attempt Resuscitation FatoumataSaad MD Aug 04, 2016 22:43
[2016-08-05] MEDS: Sodium Chloride LOK Flush 10 mL Syringe IVFLUSH SCH ×3 (00:07→17:07)
[2016-08-05] MEDS: Heparin 5,000 Unit/mL Inj SUBQ SCH ×4 (00:07→21:54)
--- NOTE | 2016-08-05 04:24 | NUR ---
Pain/Activity Patient reporting 7-8/10 left leg pain during this shift. Administered Q4 hr PRN 15 mg Oxycodone around the clock per pt request. pt report pain management was effective on rate of 5/10 which is his goal. pt Ambulatory in the hallway and in room independently. gait steady. left leg dressing changed after pt took shower. will continue to monitor.
[2016-08-05 06:02] VITALS: BP 123/70; PULSE 98; RESP 16; O2SAT 97
[2016-08-05 07:43] VITALS: BP 128/79; PULSE 99
[2016-08-05] MEDS: Potassium Chloride 20 mEq SR Tablet PO SCH (07:45)
[2016-08-05] MEDS: Insulin LISPRO 300 Unit/3 mL Inj SUBQ SCH ×4 (07:51→21:03)
[2016-08-05 09:24] VITALS: BP 128/75; PULSE 88; RESP 16; O2SAT 97
[2016-08-05] MEDS: cefTRIAXone Inj 2,000 MG in Dextrose 5% Minibag Plus 50 ML IV SCH (09:47)
--- NOTE | 2016-08-05 10:00 | NUR ---
EDYTA signed NIGEL Santos
--- NOTE | 2016-08-05 10:47 | NUR ---
Morning Rounds Staffed patient's case with Dr. Ham and case management. Dr. Ham stated patient could be discharged tomorrow, but patient is reporting transportation issues and would like case management to speak with him.
--- NOTE | 2016-08-05 13:32 | PCM.PNMED ---
Subjective Date of Service Aug 05, 2016 Subjective Patient has no new complaints. He appears quite comfortable. He admits that he is starting to feel better. He once again surprisingly did not ask me for an increase in his narcotic regimen. Exam Vital Signs Vital Sign - Last Date Time Temp Pulse Resp B/P Pulse Ox O2 Delivery O2 Flow Rate FiO2 08/05/16 09:24 36.9 88 16 128/75 97 Room Air Intake and Output 08/04/16 08/04/16 08/05/16 Cumulative From/Thru 15:00 23:00 07:00 07/31/16 19:29 - 08/05/16 06:19 Intake Total 1855 ml 1044 ml 43776 ml Output Total 1800 ml 7025 ml Balance 55 ml 1044 ml 4589 ml Intake Oral 1674 ml 1044 ml 6568 ml IV Total 181 ml 5046 ml Output Urine Total 1800 ml 7025 ml # Voids 4 27 # Bowel Movements 1 1 3 Exam General: Patient is in no apparent distress today sitting up in bed with his leg slightly elevated. HEENT: Head is atraumatic and normocephalic. Eyes: Pupils are pinpoint but equally round and reactive to light and accommodation. Extraocular muscles are intact. Sclera are white, anicteric. Subconjunctival mucosa is pink. Ears and nose are unremarkable. Oropharynx: There are no mucosal lesions, there is no thrush, there is no pharyngitis. Neck: Is supple, there are no nodes, or masses or tenderness. Chest: Is clear to auscultation and percussion. There are no rales, rhonchi, wheezes or rubs. Heart: Rate, rhythm is regular. There is no new murmur, rub or gallop. Abdomen: Good bowel sounds are present. Abdomen is soft, nontender, no organomegaly or masses were appreciated. Extremities: Are symmetrical and well perfused. There continues to be slight decrease in edema evident due to wrinkling of the skin and significant evidence for decreased erythema. There is DuoDERM on both areas of skin breakdown on the anterior tibia. These wounds on the left lower extremity continue to heal. Neurologic: There are no focal neurological deficits. Cranial nerves II through XII are intact. There are no sensory or motor deficits. Psychiatric: Patients mood is calm and he shows no sign of agitation. Genital: Deferred Rectal: Deferred Lab and Diagnostics Result Diagram: 08/04/1662908/04/16629 Microbiology MRSA screen is negative Cultures are negative to date. X-Rays, CTs and MRIs XR left knee No derangement of prostatic device No gas noted on XR No derangement of joint mild soft tissue edema Additional Diagnostics US Soft Tissue/Musculoskeletal CONCLUSION: No evidence of left lower extremity deep vein thrombosis. Soft tissue edema and groin lymph nodes raising possibility of cellulitis. Please correlate clinically. Radiologist: Izaiah Whitten MD Assessment & Plan The patient is a 61 y.o. M with medial history of DM, HTN, Chronic venous stasis , hepatitis C with cirrhosis and a history of chronic pain, knee replacements on two occasions on the left knee, most recently in May 2015. Admitted for treatment of left lower leg cellulitis. 1. Left lower leg cellulitis, acute with positive ASO titer - Secondary to traumatic injury and uncontrolled type II DM, history of MRSA infection - Patient is eating and drinking well we have discontinued IV fluids. - Continue IV antibiotics. Dr. Goff was consulted and has discontinued the vancomycin and previously the Levaquin. We will continue Rocephin 2 g IV every 24 hours. - Repeat CBC, CMP in AM - Streptozyme ordered and was elevated - Blood cultures ordered - XR Left tibia and fibula ordered for AM - Pain control oxycodone 15 mg Q 6 hours - Appreciate infectious disease consultation with Dr. Goff and will follow his recommendations. 2. Hyperglycemia due to uncontrolled Diabetes, non DKA, acute on chronic, better controlled - History of uncontrolled Type II DM - High dose correctional scale ordered - Continue metformin - Encourage diabetic diet which patient is not compliant with - Continue to monitor 3. Acute Kidney Injury - Secondary to DM and dehydration - We will do discontinue IVF NS, as patient is eating and drinking well - We will repeat CMP in a.m. 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 Goff of ID. Patient is to resume doxycycline when he has completed his antibiotic therapy for the cellulitis. Patient is to follow-up with Dr. Goff in 1 month as an outpatient. Anxiety - Continue home medication Disposition: Patient will continue IV and back for another 24-48 hours and then be discharged home on Keflex 500 mg by mouth 4 times a day for 7 days. After the Keflex is finished she is to resume doxycycline 100 mg by mouth twice a day as before,, for chronic anabolic suppressive therapy for left total knee arthroplasty infection. CODE STATUS FULL CODE DVT prophylaxis: SUB Q HEPARIN GI PROPHYLAXIS: Famotidine Pain Evaluation: Adequate Pain Control GI Prophylaxis: H2 oswald VTE Prophylaxis: Sub-Q Heparin (Unfractionated) Resuscitation Status: CPR: Attempt Resuscitation [place] MD Aug 05, 2016 13:32
--- NOTE | 2016-08-05 15:47 | NUR ---
Social Work: Readiness for d/c Data: Pt is on day 4 of hospitalization. EMR reviewed. states pt likely ready for d/c tomorrow. TRANSFER ENGINEER met with pt regarding d/c. Pt states that he does not have a ride home or anyone to help him at home until Sunday. TRANSFER ENGINEER explained that people discharge when they are medically ready to discharge and to think of any other possibilities. Pt states he may appeal his d/c on Sunday if he is discharged, refused to think of other options with TRANSFER ENGINEER. TRANSFER ENGINEER will continue to follow. Assessment: Pt who is independent at baseline. Plan: Pt will d/c home via POV or taxi when medically stable. TRANSFER ENGINEER will continue to follow. NIGEL Santos
[2016-08-05 18:00] VITALS: BP 135/76; PULSE 91; RESP 16; O2SAT 100
[2016-08-05 20:45] VITALS: BP 106/68; PULSE 88; RESP 18; O2SAT 95
--- NOTE | 2016-08-05 23:09 | NUR ---
DIABETIC DIET At 2100, pt asked for 2 bayron, stated he usually has two at home. With pt's cooperation, RN bargained with him to only have one and to continue to decrease simple sugar/carbohydrate intake tomorrow and when he goes home. Pt verbalizes understanding and need for controlled sugars stating "I know the antibiotics won't do any good if my sugars are high." Pt is aware of complications of diabetes i.e. retinopathy, kidney disease, and neuropathy. Pt expresses interest and motivation to get blood glucose under control. Will continue to encourage controlled carb diet and to follow dietary recommendations. Hourly rounding. Addendum: 08/06/16 at 0001 by VON HERRERA RN Gave pt care notes about diabetic diet and general DM management. Pt interested in learning more to control his DM and lose weight--pt reports "I need to get down to 180 lbs." RN informed of outpatient DM classes, pt would like to get more information on these. Pt also would like to speak with junior oracle dba about carb counting.
[2016-08-06 00:08] VITALS: BP 132/80; PULSE 95; RESP 20; O2SAT 100
[2016-08-06] MEDS: Sodium Chloride LOK Flush 10 mL Syringe IVFLUSH SCH ×3 (00:26→16:51)
[2016-08-06 04:49] VITALS: BP 127/76; PULSE 85; RESP 16; O2SAT 99
[2016-08-06 07:07] LABS: BASOPHILS % (AUTO) 1.2 % (0-3); EOSINOPHILS % (AUTO) 13.3 % (0-5); MONOCYTES % (AUTO) 13.3 % (4-12); Mean Corpuscular Hemoglobin 30.7 pg (27.0-35.0); Mean Corpuscular Volume 87.5 fL (81-100); NEUTROPHILS % (AUTO) 37.9 % (40-74); Platelet Count 72 bil/L (150-400)
[2016-08-06] MEDS: Heparin 5,000 Unit/mL Inj SUBQ SCH ×2 (07:58→16:42)
[2016-08-06] MEDS: Potassium Chloride 20 mEq SR Tablet PO SCH (07:59)
[2016-08-06] MEDS: Insulin LISPRO 300 Unit/3 mL Inj SUBQ SCH ×4 (08:01→22:00)
[2016-08-06 08:25] LABS: Magnesium 1.8 mg/dL (1.6-2.6)
[2016-08-06 08:49] LABS: ERYTHROCYTE SEDIMENTATION RATE > 140 mm/hr (0-30)
[2016-08-06] MEDS ORDERED: Magnesium Sulf 2 Gm/50mL Water 2 GM in IV Premix 1 EACH IV ONE (09:25)
[2016-08-06] MEDS: cefTRIAXone Inj 2,000 MG in Dextrose 5% Minibag Plus 50 ML IV SCH (09:57)
[2016-08-06 10:03] VITALS: BP 117/77; PULSE 82; RESP 16; O2SAT 98
--- NOTE | 2016-08-06 10:30 | NUR ---
Morning Rounds Staffed patient's case with Dr. Ham and case management. Dr. Ham stated patient will likely discharge home on 08/07/16 on oral antibiotics.
[2016-08-06 14:32] VITALS: BP 114/69; PULSE 93; RESP 14; O2SAT 97
[2016-08-06 17:45] VITALS: BP 123/66; PULSE 92; RESP 16; O2SAT 96
[2016-08-06 22:22] VITALS: BP 118/68; PULSE 90; RESP 16; O2SAT 97
--- NOTE | 2016-08-06 23:57 | PCM.PNMED ---
Subjective Date of Service Aug 06, 2016 Subjective The patient states that he is starting to feel a bit better but is unable to go home today as his significant other is not there and she is a 100 take care of them and administering his medications and doing wound care. He also feels that he needs another day of IV antibiotics or he is at high risk of returning with recurrent infection as this has happened to him before. He thinks that he will be able to safely go home tomorrow on oral antibiotics. Exam Vital Signs Vital Sign - Last Date Time Temp Pulse Resp B/P Pulse Ox O2 Delivery O2 Flow Rate FiO2 08/06/16 22:22 36.8 90 16 118/68 97 Room Air Intake and Output 08/05/16 08/05/16 08/06/16 Cumulative From/Thru 15:00 23:00 07:00 07/31/16 19:29 - 08/06/16 05:29 Intake Total 760 ml 1458 ml 54208 ml Output Total 550 ml 7575 ml Balance 210 ml 1458 ml 6257 ml Intake Oral 760 ml 1428 ml 8756 ml IV Total 30 ml 5076 ml Output Urine Total 550 ml 7575 ml # Voids 3 3 33 # Bowel Movements 1 4 Exam General: Patient is in no apparent distress today sitting up in bed with his leg slightly elevated. HEENT: Head is atraumatic and normocephalic. Eyes: Pupils are pinpoint but equally round and reactive to light and accommodation. Extraocular muscles are intact. Sclera are white, anicteric. Subconjunctival mucosa is pink. Ears and nose are unremarkable. Oropharynx: There are no mucosal lesions, there is no thrush, there is no pharyngitis. Neck: Is supple, there are no nodes, or masses or tenderness. Chest: Is clear to auscultation and percussion. There are no rales, rhonchi, wheezes or rubs. Heart: Rate, rhythm is regular. There is no new murmur, rub or gallop. Abdomen: Good bowel sounds are present. Abdomen is soft, nontender, no organomegaly or masses were appreciated. Extremities: Are symmetrical and well perfused. There continues to be slight decrease in edema evident due to wrinkling of the skin and significant evidence for decreased erythema. There is DuoDERM on the 2 areas of skin breakdown on the anterior tibia. These wounds on the left lower extremity continue to heal. There appears to be significant improvement today compared to yesterday. Neurologic: There are no focal neurological deficits. Cranial nerves II through XII are intact. There are no sensory or motor deficits. Psychiatric: Patients mood is calm and he shows no sign of agitation. Genital: Deferred Rectal: Deferred Lab and Diagnostics Result Diagram: 08/06/1664708/06/16647 Microbiology MRSA screen is negative Cultures are negative to date. X-Rays, CTs and MRIs XR left knee No derangement of prostatic device No gas noted on XR No derangement of joint mild soft tissue edema Additional Diagnostics US Soft Tissue/Musculoskeletal CONCLUSION: No evidence of left lower extremity deep vein thrombosis. Soft tissue edema and groin lymph nodes raising possibility of cellulitis. Please correlate clinically. Radiologist: Izaiah Whitten MD Assessment & Plan The patient is a 61 y.o. M with medial history of DM, HTN, Chronic venous stasis , hepatitis C with cirrhosis and a history of chronic pain, knee replacements on two occasions on the left knee, most recently in May 2015. Admitted for treatment of left lower leg cellulitis. 1. Left lower leg cellulitis, acute with positive ASO titer - Secondary to traumatic injury and uncontrolled type II DM, history of MRSA infection - Patient is eating and drinking well we have discontinued IV fluids. - Continue IV antibiotics. Dr. Goff was consulted and has discontinued the vancomycin and previously the Levaquin. We will continue Rocephin 2 g IV every 24 hours. - Repeat CBC, CMP in AM - Streptozyme ordered and was elevated - Blood cultures ordered - XR Left tibia and fibula ordered for AM - Pain control oxycodone 15 mg Q 6 hours - Appreciate infectious disease consultation with Dr. Goff and will follow his recommendations. 2. Hyperglycemia due to uncontrolled Diabetes, non DKA, acute on chronic, better controlled - History of uncontrolled Type II DM - High dose correctional scale ordered - Continue metformin - Encourage diabetic diet which patient is not compliant with - Continue to monitor 3. Acute Kidney Injury - Secondary to DM and dehydration - We will do discontinue IVF NS, as patient is eating and drinking well - We will repeat CMP in a.m. 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 Gfof of ID. Patient is to resume doxycycline when he has completed his antibiotic therapy for the cellulitis. Patient is to follow-up with Dr. Goff in 1 month as an outpatient. Anxiety - Continue home medication Disposition: Patient will continue IV and back for another 24 hours and then be discharged home on Keflex 500 mg by mouth 4 times a day for 7 days. After the Keflex is finished she is to resume doxycycline 100 mg by mouth twice a day as before,, for chronic anabolic suppressive therapy for left total knee arthroplasty infection. Dr. Olson will follow in a.m. CODE STATUS FULL CODE DVT prophylaxis: SUB Q HEPARIN GI PROPHYLAXIS: Famotidine Pain Evaluation: Adequate Pain Control GI Prophylaxis: H2 oswald VTE Prophylaxis: Sub-Q Heparin (Unfractionated) Resuscitation Status: CPR: Attempt Resuscitation Saad Ham MD Aug 06, 2016 23:57
[2016-08-07] MEDS: Sodium Chloride LOK Flush 10 mL Syringe IVFLUSH SCH ×3 (00:30→16:30)
[2016-08-07] MEDS: Heparin 5,000 Unit/mL Inj SUBQ SCH ×3 (00:34→16:30)
--- NOTE | 2016-08-07 03:49 | NUR ---
GI Pt c/o mild GI discomfort tonight, requested soup and crackers, which gave patient relief. Pt has been requesting pain meds regularly and has been resting well.
[2016-08-07 06:22] VITALS: BP 124/71; PULSE 81; RESP 16; O2SAT 98
[2016-08-07 06:39] LABS: BASOPHILS % (AUTO) 0.8 % (0-3); EOSINOPHILS % (AUTO) 10.4 % (0-5); MONOCYTES % (AUTO) 12.8 % (4-12); Mean Corpuscular Hemoglobin 30.5 pg (27.0-35.0); Mean Corpuscular Volume 88.3 fL (81-100); Platelet Count 62 bil/L (150-400)
[2016-08-07 06:47] LABS: Magnesium 1.9 mg/dL (1.6-2.6)
[2016-08-07] MEDS ORDERED: CEPH-512 PO (07:59)
[2016-08-07] MEDS: Potassium Chloride 20 mEq SR Tablet PO SCH (08:16)
[2016-08-07] MEDS: Insulin LISPRO 300 Unit/3 mL Inj SUBQ SCH ×3 (08:19→17:30)
[2016-08-07] MEDS: cefTRIAXone Inj 2,000 MG in Dextrose 5% Minibag Plus 50 ML IV SCH (09:46)
--- NOTE | 2016-08-07 10:28 | PCM.DIMED ---
Discharge Instructions Date of Service Aug 07, 2016 Dates of Hospitalization Aug 01, 2016 at 01:16 Discharge Diagnosis Discharge Diagnosis LLE cellulitis Medication Instructions Please take Keflex 500mg four times a day for one week then continue to take Doxycycline Diet Heart Healthy, Diabetic Activity No restrictions Call your provider Fever or Chills Patient Instructions You were hospitalized with skin infection with ulcer in your lower leg. It's most likely related to your diabetes, chronic venous stasis, traumatic injury. Please follow up with Wound care clinic for follow up, follow medicine instruction as above Follow-up plan Please follow up with your primary doctor in 2weeks Follow-up Provider: Geraldine Contreras MD Follow-up with PCP in: 2 weeks Gris Olson MD Aug 07, 2016 10:28
[2016-08-07 10:44] VITALS: BP 124/69; PULSE 85; RESP 16; O2SAT 98
--- NOTE | 2016-08-07 11:32 | NUR ---
Wound Care Patient seen for wound care and dressing change to left anterior leg. Wound cleansed with NS. Minimal bloody drainage with cleaning. Measures 0.6cmL x 0.6cmW x less than 0.1cmD. Healing well. 100% granulation tissue with new epithelialization to wound edges. Patient instructed in dressing changes at home. Applied wound gel. Covered with Mepilex foam. Patient hopes to dc home today.
--- NOTE | 2016-08-07 11:54 | NUR ---
Social Work Note - Discharge Note: D/A: The Pt is a 61 y/o that is now on day 6 of admission for left leg cellulitis. SW met with the Pt to discuss discharge planning and complete EDYAT, Pt reports that he has been informed that he will be discharged today. EDYTA signed. Pt reports concerns with his ankle, SW encouraged Pt to inform MD regarding these concerns. IV ABx to be completed 08/07/16. Wound Care involved, to dressing change and wound evaluation to be completed 08/07/16. Wound Care informed SW that the Pt needs to be seen as an Ot[facility], requested SW to call [facility] for a follow-up appointment in about one week. Appointment scheduled for 08/15/16 at 10:30am. Pt provided with appointment information, Wound Care OtPt telephone number, and directions. The Pt is followed by MD Goff, Pt to follow up as an OtPt in about one month as per note. The Pt denies any needs at this time, SW to follow if needs arise. P: The Pt will discharge home today via POV transportation. Pt to follow-up with [facility] on 08/15/16 at 10:30am. Pt also to follow-up with MD Goff as an OtPt in about one month. The Pt denies any needs at this time. Alana Whelan MSW [employer] NIGEL Stewart
[2016-08-07 16:12] VITALS: BP 132/70; PULSE 80; RESP 16; O2SAT 97
--- NOTE | 2016-08-07 17:43 | NUR ---
Discharge Pt verbally understood all discharge instructions,medications, and follow up appointments that were made, along with friend at bedside. IV DC'd, catheter intact. Pt given 15mg Prema prior to dc for pain in legs. All belongings accounted for. Pt transported by nurse via wc down to [facility].
--- NOTE | 2016-08-08 13:44 | PCM.DC.MED ---
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 Soft tissue edema and groin lymph nodes raising possibility of cellulitis. Please correlate clinically. Radiologist: Izaiah Whitten MD Brief History HPI obtained by on 08/01/2016 Patient is a 61 y.o. M with medial history of DM, HTN, Chronic venous stasis, hepatitis C with cirrhosis and a history of chronic pain, knee replacements on two occasions on the left knee, most recently in May 2015. Presented to ED with left leg pain that began yesterday. Patient stated that he bumped his left leg about one and a half weeks ago and the wound has not healed and has become painful, swollen, red, actively draining serosanguinous fluid. Patient stated that pain dramatically increased last night with more swelling, red and dark discoloration that spread from his guo to his left knee. Patient stated that he has had problems like this in the past, associated with left prosthetic knee maintained on life long doxycycline due to concern for MRSA latent infection with improvement and he required hospilitalization and IV antibiotics, he was last seen by Dr. Goff 06/07/16 and was continued on life long doxycycline. In the past patient was admitted for recurrent infection, past streptozyme 249.7, and placed on vancomycin and levofloxacin with improvement. In the ED patient started in IVF NS, vancomycin, ceftrixone, clindamycin. Hospital Course The patient is a 61 y.o. M with medial history of DM, HTN, Chronic venous stasis , hepatitis C with cirrhosis and a history of chronic pain, knee replacements on two occasions on the left knee, most recently in May 2015. Admitted for treatment of left lower leg cellulitis. 1. Left lower leg cellulitis, acute with positive ASO titer, Secondary to traumatic injury and uncontrolled type II DM. Patient was initialy treated with vancomycin and previously the Levaquin, switched to Rocephin 2 g IV every 24 hours by . Patient remained HD stable, afebrile, no wbc, no signs of systemic infection. Plan is to change to Keflex for 7days and back to chronic suppressive tx with Doxycycline. Patient will be followed up by Wound care clinic as well. 2. Hyperglycemia due to uncontrolled Diabetes, non DKA, a1c came back 7.3. Home metformin was continued. 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 Goff of ID. Patient is to resume doxycycline when he has completed his antibiotic therapy for the cellulitis. Patient is to follow-up with Dr. Goff in 1 month as an outpatient. Anxiety- Continue home medication Exam Vital Signs (Last) Date Time Temp Pulse Resp B/P Pulse Ox O2 Delivery O2 Flow Rate FiO2 08/07/16 16:12 36.7 80 16 132/70 97 Room Air Exam NAD, comfortably laying down on the bed no JVD, MMM, no LAD RRR, nl s1, s2 no mrg CTAB, no w,c S,ND,NT,normoactive BS+ chronic discolored skin changes on BLE, [id number] round shape, opened ulcer on anterior guo on LLE. Test 07/31/16 20:55 08/01/16 02:00 08/01/16 06:50 08/06/16 06:48 Prothrombin Time 12.7sec (8.1-12.5) Prothromb Time International Ratio 1.18ratio Activated Partial Thromboplast Time 32.1sec (22.8-33.0) D-Dimer 1.1mg/L (<0.50) Lactic Acid Level 1.3mmol/L (0.4-2.0) Urine Color Dark yellow (YELLOW) Urine Appearance Clear (CLEAR,HAZY) Urine pH 7.5 (5.0-8.0) Urine Specific [place] 1.015 (1.003-1.035) Urine Protein Negativemg/dL (NEG,TRACE) Urine Glucose (UA) Negativemg/dL (NEGATIVE) Urine Ketones Negativemg/dL (NEGATIVE) Urine Occult Blood Negative (NEGATIVE) Urine Nitrite Negative (NEGATIVE) Urine Bilirubin Negative (NEGATIVE) Urine Urobilinogen Normalmg/dL (NORMAL) Urine Leukocyte Esterase Negative (NEGATIVE) Urine RBC 0-2/hpf (0-2) Urine WBC 0-5/hpf (0-5) Urine Epithelial Cells Occasional/hpf (NONE-MOD) Urine Crystals None seen (NONE SEEN) Urine Bacteria None/hpf (NONE-FEW) Urine Hyaline Casts None/lpf (NONE) Urine Granular Casts None seen (NONE SEEN) Urine Waxy Casts None seen (NONE SEEN) Urine Red Blood Cell Casts None seen (NONE SEEN) Urine White Blood Cell Casts None seen (NONE SEEN) Urine Mucus None seen (None Seen) Urine Trichomonas None seen (NONE SEEN) Urine Yeast None (NONE SEEN) Urine Culture Reflexed Not indicated Hemoglobin A1c 7.3% (4.8-5.6) Streptozyme 290.0IU/mL (0.0-200.0) Erythrocyte Sedimentation Rate > 140mm/hr (0-30) C-Reactive Protein 0.2mg/dL (0.0-0.5) Procalcitonin 0.05ng/mL (0.00-0.08) Test 08/07/16 06:10 White Blood Count 2.5th/mm3 (3.8-10.1) Red Blood Count 3.77mil/mm3 (4.40-5.80) Hemoglobin 11.5g/dL (13.8-17.2) Hematocrit 33.3% (41.0-50.0) Mean Corpuscular Volume 88.3fL (81-100) Mean Corpuscular Hemoglobin 30.5pg (27.0-35.0) Mean Corpuscular Hemoglobin Concent 34.5% (32.0-37.0) Red Cell Distribution Width 15.0% (12.3-15.4) Platelet Count 62bil/L (150-400) Neutrophils (%) (Auto) 42.0% (40-74) Lymphocytes (%) (Auto) 33.6% (14-46) Monocytes (%) (Auto) 12.8% (4-12) Eosinophils (%) (Auto) 10.4% (0-5) Basophils (%) (Auto) 0.8% (0-3) Sodium Level 133mEq/L (134-144) Potassium Level 4.1mEq/L (3.5-5.2) Chloride Level 97mEq/L (97-108) Carbon Dioxide Level 26mmol/L (18-29) Blood Urea Nitrogen 18mg/dL (8-27) Creatinine 0.57mg/dL (0.76-1.27) Estimat Glomerular Filtration Rate 153mL/min (>59) Glucose Level 387mg/dL (60-99) Calcium Level 9.0mg/dL (8.5-10.1) Magnesium Level 1.9mg/dL (1.6-2.6) Total Bilirubin 0.9mg/dL (0.0-1.2) Aspartate Amino Transf (AST/SGOT) 28U/L (0-50) Alanine Aminotransferase (ALT/SGPT) 23U/L (0-44) Alkaline Phosphatase 96U/L (25-160) Total Protein 5.7g/dL (6.4-8.4) Albumin 3.0g/dL (3.4-5.0) Microbiology Results MRSA screen is negative Cultures are negative to date. Discharge Medications Discharge Medications Ascorbic Acid (Vitamin C) 1,000 Mg Tab.chew 1,000 MG PO DAILY (Reported) Cephalexin (Keflex) 500 Mg Capsule 500 MG PO QID Prescribed by: GRIS LARA MD Cholecalciferol (Vitamin D3) (Vitamin D3) 2,000 Unit Tablet 2,000 UNIT PO DAILY (Reported) Doxycycline Monohyd (Doxycycline Monohyd) 100 Mg Capsule 100 MG PO BID (Reported ) Furosemide (Furosemide) 40 Mg Tablet 40 MG PO QAM (Reported) Gabapentin (Gabapentin) 300 Mg Capsule 900 MG PO HS (Reported) Magnesium Oxide (Magnesium Oxide) 400 Mg Tablet 400 MG PO DAILY (Reported) Metformin (Metformin) 850 Mg Tablet 850 MG PO BIDWM (Reported) Potassium Chloride ER (Potassium Chloride ER) 20 Meq Tablet.er 20 MEQ PO DAILY ( Reported) TAKE WITH FOOD Vit B Comp&C/Folic Acid/Vit D3 (Dialyvite 800 Plus D Wafer) 800 Mcg-2,000 Unit Tab.chew 1 EACH PO DAILY (Reported) As needed Etodolac (Etodolac) 500 Mg Tablet 500 MG PO BIDWM PRN PRN For Pain (Reported) Insulin Aspart (NovoLOG U-100 Pen) 100 Unit/Ml Insuln.pen 0-20 UNIT SUBQ TIDAC PRN PRN sliding scale (Reported) 1 unit for BS>150, 1 unit increment for BS increment of 25 Oxycodone (Roxicodone) 5 Mg Tablet 15-20 MG PO QID PRN PRN For Pain (Reported) diphenhydrAMINE HCl (Unisom) 50 Mg/30 Ml Liquid 50 MG PO HS PRN PRN Insomnia ( Reported) Additional med instructions Please take Keflex 500mg four times a day for one week then continue to take Doxycycline Followup Plan Disposition: home Follow-up plan Please follow up with your primary doctor in 2weeks Discharge Diet: Heart Healthy, Diabetic Discharge Activity: No restrictions Patient Instructions You were hospitalized with skin infection with ulcer in your lower leg. It's most likely related to your diabetes, chronic venous stasis, traumatic injury. Please follow up with Wound care clinic for follow up, follow medicine instruction as above Follow-up Provider: Geraldine Contreras MD Follow-up with PCP in: 2 weeks Time spent 65min Gris Lara MD Aug 08, 2016 13:36
== END 2016-08-07 18:21 | disposition home or self-care (01) | DRG 603 ==
LOC: SED 19:25 → OBSVTOIN 08-01 01:16 → MOC 08-01 01:16
PROVIDERS: ADMIT Hospitalist; ATTEND Hospitalist
DX: L03.116 Cellulitis of left lower limb (principal); N17.9 Acute kidney failure, unspecified; Z79.891 Long term (current) use of opiate analgesic; B95.0 Streptococcus, group A, as the cause of diseases classified elsewhere; E11.65 Type 2 diabetes mellitus with hyperglycemia; Z79.84 Long term (current) use of oral hypoglycemic drugs; I10 Essential (primary) hypertension; I87.8 Other specified disorders of veins; Z79.4 Long term (current) use of insulin; Z86.14 Personal history of Methicillin resistant Staphylococcus aureus infection; Z96.652 Presence of left artificial knee joint; Z86.19 Personal history of other infectious and parasitic diseases; E11.42 Type 2 diabetes mellitus with diabetic polyneuropathy

== ENCOUNTER 2016-08-21 12:53 | Emergency (ER) | payer MEDICAID, MEDICARE ==
[~2016-08-21] VITALS: Ht 177.8 cm; Wt 97.7 kg
[~2016-08-21 12:53] MED LIST changes: +ASCO100089 PO; +CEPH-512 PO; +CHOL200025 PO; +DIPH50LI PO; +DOXY100C43 PO; +ETOD500T PO; +FURO40TA4 PO; -HYDR-656 PO; -LEVO500T16 PO; -LEVO500T79 PO; +MAGN400T4 PO; -OXYC-466 PO; +OXYC-474 PO; -OXYC1TAB24 PO; +POTA-62 PO; -SOFO400T PO; +VIT1TAB.7 PO
[2016-08-21 13:18] VITALS: BP 128/82; PULSE 79; RESP 16; O2SAT 97
[2016-08-21] MEDS ORDERED: HYDROcodone-APAP 5-325 mg Tablet PO ONE ×2 (15:15→17:15)
--- NOTE | 2016-08-21 15:35 | DRSVH ---
PROCEDURE: X-RAY RIGHT SHOULDER, MINIMUM TWO VIEWS ([id number]) INDICATIONS: FALL TECHNIQUE: 3 views of the shoulder were acquired. COMPARISON: [facility] [facility], CR, XR SHOULDER MIN 2VW RT, 016, 13:12. FINDINGS: Bones: No fractures or dislocations. No suspicious bony lesions. Visualized ribs appear intact. T he bone mineralization is within normal limits. There is at least mild degenerative changes of the g lenohumeral and chromic clavicular joints. There are degenerative changes noted involving the imaged cervical spine. Soft tissues: No suspicious soft tissue calcifications. IMPRESSION: No acute osseous abnormality of the right shoulder. Dictated by: Duc Guevara M.D. on 08/21/2016 at 14:25 Approved by: Duc Guevara M.D. on 08/21/2016 at 14:33
--- NOTE | 2016-08-21 15:35 | ED.REPORT ---
HPI-Trauma Minor / Fall Date of Service Aug 21, 2016 ED Provider: Dionisio Shah PA-C iMchael is a 61-year-old male presenting with dual chief complaints of right shoulder pain and left leg cellulitis. Patient reports falling yesterday and striking his elbow against the ground resulting in pain in his right shoulder. He reports worsening pain which limits the use of his right arm. Denies weakness, numbness or tingling in the extremity. Currently on a pain management plan. Patient reports a history of being hospitalized for cellulitis in his left lower leg. He is discharged proximately 3 weeks ago with a one-week supply of Keflex, which he took as directed. He reports increasing tenderness, tension in the lower leg last night. He also reports that he took a nap in his lounge chair this afternoon and awoke with the foot rest "soaked." He cannot identify the color of the discharge. He reports a history of total knee arthroplasty on the left side which had become infected previously. Denies knee pain, fever, chills, vomiting, abdominal pain. Nursing Notes Stated Complaint: SHOULDER INJURY/POSSIBLE LEG INFECTION Chief Complaint: Extremity Trauma Nursing Notes Reviewed: Yes Allergies: Coded Allergies: Penicillins (Verified Allergy, Severe, Severe itching/hives, OK WITH CEPHALOSPORINS, 08/21/16) PT TAKES KEFLEX AT HOME RECEIVED ROCEPHIN ON 08/16; NO PROBLEMS NOTED ketorolac (Verified Adverse Reaction, Intermediate, 08/21/16) Scheduled Ascorbic Acid (Vitamin C) 1,000 Mg Tab.chew 1,000 MG PO DAILY Cephalexin (Keflex) 500 Mg Capsule 500 MG PO QID Cephalexin (Cephalexin) 500 Mg Capsule 500 MG PO QID Cholecalciferol (Vitamin D3) (Vitamin D3) 2,000 Unit Tablet 2,000 UNIT PO DAILY Doxycycline Monohyd (Doxycycline Monohyd) 100 Mg Capsule 100 MG PO BID Furosemide (Furosemide) 40 Mg Tablet 40 MG PO QAM Gabapentin (Gabapentin) 300 Mg Capsule 900 MG PO HS Magnesium Oxide (Magnesium Oxide) 400 Mg Tablet 400 MG PO DAILY Metformin (Metformin) 850 Mg Tablet 850 MG PO BIDWM Potassium Chloride ER (Potassium Chloride ER) 20 Meq Tablet.er 20 MEQ PO DAILY TAKE WITH FOOD Vit B Comp&C/Folic Acid/Vit D3 (Dialyvite 800 Plus D Wafer) 800 Mcg-2,000 Unit Tab.chew 1 EACH PO DAILY Scheduled PRN Etodolac (Etodolac) 500 Mg Tablet 500 MG PO BIDWM PRN PRN For Pain Insulin Aspart (NovoLOG U-100 Pen) 100 Unit/Ml Insuln.pen 0-20 UNIT SUBQ TIDAC PRN PRN sliding scale 1 unit for BS>150, 1 unit increment for BS increment of 25 Oxycodone (Roxicodone) 5 Mg Tablet 15-20 MG PO QID PRN PRN For Pain diphenhydrAMINE HCl (Unisom) 50 Mg/30 Ml Liquid 50 MG PO HS PRN PRN Insomnia General Time Seen by MD: 14:56 Chief Complaint Other Past Medical History Past Medical History Notes: Infectious disease followed by Dr. Goff Drug seeking behavior Past Medical History C diff November 2015 Chronic venous stasis Hepatitis C, now treated Syncope Bilateral lower extremity knee arthritis On chronic opiates, with history of drug-seeking behavior Hx of septic joint - on doxycycline Anxiety Hx of pneumonia Reports: Diabetes mellitus, Hypertension Reports: Depression Past Surgical History Left knee replacement (2011) with MRSA postoperative infection and hardware removal right knee ACL repair Family History Father CABG in his 60's Smoking History Never Smoker Social History Alcohol Use: Denies alcohol use Drug Use: Denies drug use Other Social History: Local resident Occupation lives with partner and her daughter and daughter's boyfriend and [facility] young children Ambulatory Status Independent Review of Systems Review of Systems Note: Negative unless stated otherwise in history of present illness Physical Exam General: Well appearing, well developed, well nourished, no acute distress. Right shoulder: Normal to inspection, without bruising, redness, swelling, heat. Tender over the acromion process. Limited range of motion in flexion and external rotation. Left knee: Negative redness, swelling, heat. Healed scar consistent with total knee arthroplasty. Full range of motion. Left leg: Cedric edema. 2 cm healing wound on anterior mid shaft guo surrounded by very slight erythema. No discharge noted. Mild tenderness noted over length of anterior guo. Right foot/ankle: DP and PT pulses 2+. Mild edema.. Nontender, full range of motion. Head: Atraumatic, normocephalic. Eyes: No scleral icterus or injection. No discharge. Vision grossly intact. ENT: Voice clear, hearing grossly intact. Respiratory: No respiratory distress, no increased work of breathing. Speaks in complete sentences. Skin: Warm and dry. Neurological: Grossly nonfocal. Psychological: alert and oriented. Speech appropriate, linear and logical. Behavior appropriate. Initial Vital Signs Vital Signs (First) Date Time Temp Pulse Resp B/P Pulse Ox O2 Delivery O2 Flow Rate FiO2 08/21/16 13:18 36.6 79 16 128/82 97 Room Air Initial VS: Vital signs normal Interpretation & Diagnostics Lab Results Interpretation Result Diagram: 08/21/16 1549 08/21/16 1549 Test 08/21/16 15:49 White Blood Count 4.6th/mm3 (3.8-10.1) Red Blood Count 4.51mil/mm3 (4.40-5.80) Hemoglobin 14.1g/dL (13.8-17.2) Hematocrit 39.6% (41.0-50.0) Mean Corpuscular Volume 87.8fL (81-100) Mean Corpuscular Hemoglobin 31.3pg (27.0-35.0) Mean Corpuscular Hemoglobin Concent 35.6% (32.0-37.0) Red Cell Distribution Width 14.5% (12.3-15.4) Platelet Count 103bil/L (150-400) Neutrophils (%) (Auto) 64.6% (40-74) Lymphocytes (%) (Auto) 21.0% (14-46) Monocytes (%) (Auto) 7.6% (4-12) Eosinophils (%) (Auto) 6.1% (0-5) Basophils (%) (Auto) 0.7% (0-3) Sodium Level 139mEq/L (134-144) Potassium Level 4.3mEq/L (3.5-5.2) Chloride Level 104mEq/L (97-108) Carbon Dioxide Level 23mmol/L (18-29) Blood Urea Nitrogen 16mg/dL (8-27) Creatinine 0.65mg/dL (0.76-1.27) Estimat Glomerular Filtration Rate 132mL/min (>59) Glucose Level 173mg/dL (60-99) Calcium Level 9.1mg/dL (8.5-10.1) Total Bilirubin 1.6mg/dL (0.0-1.2) Aspartate Amino Transf (AST/SGOT) 24U/L (0-50) Alanine Aminotransferase (ALT/SGPT) 17U/L (0-44) Alkaline Phosphatase 107U/L (25-160) Total Protein 7.3g/dL (6.4-8.4) Albumin 3.8g/dL (3.4-5.0) Hold Olguin Top Tube Received (Received) X-Ray Interpretation Xray Interpretation: PROCEDURE: X-RAY RIGHT SHOULDER, MINIMUM TWO VIEWS ([id number]) INDICATIONS: FALL IMPRESSION: No acute osseous abnormality of the right shoulder. Interpretation / Wet Read by: Interpret - Radiologist, Interp - P Re-Eval/Medical Decision Med Decision/Clinical Course 61-year-old male patient with twin complaints of right shoulder pain and left lower leg cellulitis. Reports shoulder pain secondary to a fall this morning. He also reports worsening distention, tenderness and drainage around the sore on his left leg. He had been hospitalized previously for cellulitis in the site. Discharge approximately 3 weeks ago. Denies systemic symptoms. I discussed this case with Dr. Quigley met without examined the patient. Sore on left leg appears to be healing well with minimal erythema surrounding. No leukocytosis noted. No indication of cellulitis, septic joint or systemic infection. Treated with Keflex as a precaution in deference to his sense that this is how his previous infection started. Shoulder is tender and range of motion is limited by pain. However neurovascularly intact an x-ray is negative for fracture. I believe this is a contusion. Advised primary care follow-up if not resolved. Pain treated with his pre-existing pain management plan. Table and safe for discharge to home. Advised wound care follow-up, primary care follow-up and given emergency return precautions. Patient verbalizes understanding of and consented to the plan Discharge & Departure Impression: Primary Impression: Shoulder contusion Encounter type: initial encounter Laterality: right Qualified Code: S40.011A - Contusion of right shoulder, initial encounter Additional Impression: Leg wound, left Encounter type: subsequent encounter Qualified Code: S81.802D - Unspecified open wound, left lower leg, subsequent encounter Disposition: Home Discharge Condition All VS Reviewed: Yes Condition: Stable Patient Instructions: Contusions in Adults (ED) Additional Instructions: Evaluation in the emergency department for possible left leg cellulitis and right shoulder pain. History physical and x-rays are reassuring as no fracture and your shoulder. There is no indication of nerve or vascular damage. I believe this is a contusion. Please follow-up with your primary care provider if this is not significantly improved in one week. The wound on your leg appears to be doing fairly well. At this point there is no indication of flagrant cellulitis or systemic infection. Because of her history however I think it would be prudent to place you on antibiotics for 1 week. I will give you a prescription for Keflex 5 mg to be taken 4 times a day for 1 week. Please follow-up with the wound care clinic to be sure this is progressing as expected Management the pain through your current pain management plan. Return to emergency department for any new or worsening symptoms including fever , increasing swelling, redness, pain or the appearance of pus in your leg. Referrals: Racquel Bergeron PA-C EDSupervising Provider for APC: Dave Sen MD Attending Statement I was asked to evaluate the patient by AMANDEEP Shah. I evaluated the patient independently and agree with plan as [id number] male history of left lower extremity cellulitis admitted for this earlier this month discharged on oral Abx which he has completed presenting complaining of left lower extremity pain and discharge. Does not appear infected on exam. His white blood cell count is normal. AMANDEEP prescribed keflex. F/u PMD. . copies to: Racquel Bergeron PA-C, Seth PA-C Aug 21, 2016 15:35 Dave Sen MD Aug 21, 2016 18:40
[2016-08-21 16:31] LABS: BASOPHILS % (AUTO) 0.7 % (0-3); EOSINOPHILS % (AUTO) 6.1 % (0-5); MONOCYTES % (AUTO) 7.6 % (4-12); Mean Corpuscular Hemoglobin 31.3 pg (27.0-35.0); Mean Corpuscular Volume 87.8 fL (81-100); NEUTROPHILS % (AUTO) 64.6 % (40-74); Platelet Count 103 bil/L (150-400)
[2016-08-21 17:44] VITALS: BP 129/78; PULSE 72; RESP 16; O2SAT 99
[2016-08-21] MEDS ORDERED: CEPH500C PO (17:53)
== END 2016-08-21 17:51 | disposition home or self-care (01) ==
LOC: SED 12:53
DX: S81.802D Unspecified open wound, left lower leg, subsequent encounter (principal); W01.198A Fall on same level from slipping, tripping and stumbling with subsequent striking against other object, initial encounter; Y93.9 Activity, unspecified; Y92.9 Unspecified place or not applicable; Y99.9 Unspecified external cause status; I10 Essential (primary) hypertension; E11.9 Type 2 diabetes mellitus without complications; Z79.84 Long term (current) use of oral hypoglycemic drugs; Z79.899 Other long term (current) drug therapy; Z88.0 Allergy status to penicillin; Z88.8 Allergy status to other drugs, medicaments and biological substances

== ENCOUNTER 2016-08-31 21:13 | Emergency (ER) | payer MEDICAID, MEDICARE ==
[~2016-08-31] VITALS: Ht 177.8 cm; Wt 97.7 kg
[~2016-08-31 21:13] MED LIST changes: +CEPH500C PO
[2016-08-31 21:35] VITALS: BP 131/76; PULSE 80; RESP 16; O2SAT 99
--- NOTE | 2016-08-31 23:33 | ED.REPORT ---
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 The swelling has spread to his upper leg and near his hip. He is barely able to ambulate now due to the pain. Patient believes that his leg has become infected again, as it appears similar to when he was recently admitted for cellulitis. The patient also noticed some yellow drainage in his sock this evening, near his toes. Patient was [facility] seen [facility] ago and states that the wound he previously had on his guo has healed well. Patient denies a history of prior blood clot or pulmonary embolism. Patient last took his 15mg Oxycodone at 12pm this afternoon, as he fell asleep and did not take any of his medication since waking up. Patient was most recently admitted to [facility] from 07/31 - 08/08/2016 for lower extremity cellulitis, treated with Vancomycin, Levaquin, Rocephin, and discharged on Keflex. The patient last finished a course of Cephalexin 2-3 days ago, which he had leftover. He is followed by Dr. Goff. Nursing Notes Stated Complaint: POSSIBLE LEFT LEG INFECTION Chief Complaint: Extremity Trauma Nursing Notes Reviewed: Yes Allergies: Coded Allergies: Penicillins (Verified Allergy, Severe, Severe itching/hives, OK WITH CEPHALOSPORINS, 08/21/16) PT TAKES KEFLEX AT HOME RECEIVED ROCEPHIN ON 08/16; NO PROBLEMS NOTED ketorolac (Verified Adverse Reaction, Intermediate, 08/21/16) Scheduled Ascorbic Acid (Vitamin C) 1,000 Mg Tab.chew 1,000 MG PO DAILY Cephalexin (Keflex) 500 Mg Capsule 500 MG PO QID Cephalexin (Cephalexin) 500 Mg Capsule 500 MG PO QID Cholecalciferol (Vitamin D3) (Vitamin D3) 2,000 Unit Tablet 2,000 UNIT PO DAILY Doxycycline Monohyd (Doxycycline Monohyd) 100 Mg Capsule 100 MG PO BID Furosemide (Furosemide) 40 Mg Tablet 40 MG PO QAM Gabapentin (Gabapentin) 300 Mg Capsule 900 MG PO HS Magnesium Oxide (Magnesium Oxide) 400 Mg Tablet 400 MG PO DAILY Metformin (Metformin) 850 Mg Tablet 850 MG PO BIDWM Potassium Chloride ER (Potassium Chloride ER) 20 Meq Tablet.er 20 MEQ PO DAILY TAKE WITH FOOD Vit B Comp&C/Folic Acid/Vit D3 (Dialyvite 800 Plus D Wafer) 800 Mcg-2,000 Unit Tab.chew 1 EACH PO DAILY Scheduled PRN Etodolac (Etodolac) 500 Mg Tablet 500 MG PO BIDWM PRN PRN For Pain Insulin Aspart (NovoLOG U-100 Pen) 100 Unit/Ml Insuln.pen 0-20 UNIT SUBQ TIDAC PRN PRN sliding scale 1 unit for BS>150, 1 unit increment for BS increment of 25 Oxycodone (Roxicodone) 5 Mg Tablet 15-20 MG PO QID PRN PRN For Pain diphenhydrAMINE HCl (Unisom) 50 Mg/30 Ml Liquid 50 MG PO HS PRN PRN Insomnia General Time Seen by MD: 23:31 Chief Complaint Leg injury left Hx Obtained From: Patient Arrived By: Walk-in Onset Occurred: 3 days ago Symptom Duration: Since onset Location: : Leg left Quality: Painful Severity: Current: Moderate Severity: Maximum: Moderate Recent Healthcare: No recent hospitalization, Recent hospitalization Similar Sx Previous: Yes Past Medical History Past Medical History Notes: Infectious disease followed by Dr. Goff Drug seeking behavior Past Medical History Recurrent left lower extremity cellulitis ( recent Admit July 2016) C diff November 2015 Chronic venous stasis Hepatitis C, now treated Syncope Bilateral lower extremity knee arthritis On chronic opiates, with history of drug-seeking behavior Hx of septic joint - on doxycycline Anxiety Hx of pneumonia Reports: Diabetes mellitus, Hypertension Reports: Depression Past Surgical History Left knee replacement (2011) with MRSA postoperative infection and hardware removal right knee ACL repair Family History Father CABG in his 60's Smoking History Never Smoker Social History Alcohol Use: Denies alcohol use Drug Use: Denies drug use Other Social History: Local resident Occupation lives with partner and her daughter and daughter's boyfriend and several young children Ambulatory Status Independent Review of Systems Constitutional: Denies: Chills, Fever Musculoskeletal: Reports: Extremity pain, Extremity swelling Complete sys rev & neg: except as marked. Physical Exam Physical Exam Notes: Initial Vital Signs Vital Signs (First) Date Time Temp Pulse Resp B/P Pulse Ox O2 Delivery O2 Flow Rate FiO2 08/31/16 21:35 37.3 80 16 131/76 99 Room Air Initial VS: Reviewed, Vital signs normal Head / Eyes: Atraumatic, Normocephalic, PERRL ENT: Conjunctiva normal, No scleral icterus Neck: Supple, Non-tender Respiratory: No respiratory distress Cardiovascular: Regular rate & rhythm Upper Extremities: Vascular intact, No swelling Skin: Warm, Dry, No cyanosis Neurologic: Alert, Oriented, Nonfocal Psychiatric: Mood/affect normal, Behavior normal, Normal thought content Lower Extremity / Pelvis / MS: Neurologic intact, Vascular intact Makeda and brawny edema of the left leg with chronic venous stasis skin changes. Minimal edema above the knee. Minimal associated erythema, but none above the knee. Surgical scar from prior knee replacement, prior guo wound is well healed. Ankle / Foot: Neurologic intact, Vascular intact Abrasion over the top of the 2nd and 3rd toes of the left foot, no signficant open sores. Interpretation & Diagnostics US DVT IMPRESSION: No evidence of DVT Radiologist: Marlena Barkley MD 09/01/2016 - 12:28:14 AM PDT Lab Results Interpretation Result Diagram: 08/31/16 2358 08/31/16 2358 Test 08/31/16 23:58 09/01/16 03:50 White Blood Count 4.4th/mm3 (3.8-10.1) Red Blood Count 3.90mil/mm3 (4.40-5.80) Hemoglobin 12.0g/dL (13.8-17.2) Hematocrit 33.8% (41.0-50.0) Mean Corpuscular Volume 86.7fL (81-100) Mean Corpuscular Hemoglobin 30.8pg (27.0-35.0) Mean Corpuscular Hemoglobin Concent 35.5% (32.0-37.0) Red Cell Distribution Width 14.2% (12.3-15.4) Platelet Count 68bil/L (150-400) Neutrophils (%) (Auto) 61.3% (40-74) Lymphocytes (%) (Auto) 18.8% (14-46) Monocytes (%) (Auto) 10.4% (4-12) Eosinophils (%) (Auto) 8.8% (0-5) Basophils (%) (Auto) 0.5% (0-3) Prothrombin Time 12.9sec (8.1-12.5) Prothromb Time International Ratio 1.20ratio Sodium Level 141mEq/L (134-144) Potassium Level 4.2mEq/L (3.5-5.2) Chloride Level 107mEq/L (97-108) Carbon Dioxide Level 19mmol/L (18-29) Blood Urea Nitrogen 15mg/dL (8-27) Creatinine 0.71mg/dL (0.76-1.27) Estimat Glomerular Filtration Rate 119mL/min (>59) Glucose Level 143mg/dL (60-99) Calcium Level 8.5mg/dL (8.5-10.1) Magnesium Level 1.5mg/dL (1.6-2.6) Total Bilirubin 1.3mg/dL (0.0-1.2) Aspartate Amino Transf (AST/SGOT) 26U/L (0-50) Alanine Aminotransferase (ALT/SGPT) 17U/L (0-44) Alkaline Phosphatase 95U/L (25-160) Total Protein 6.1g/dL (6.4-8.4) Albumin 3.2g/dL (3.4-5.0) Hold Olguin Top Tube Received (Received) Lab values outside NL range: no clinical significance. Lab Results Interpretation: Cultures pending Re-Eval/Medical Decision Med Decision/Clinical Course No current evidence of worsening infection on physical examination or laboratory , but patient is insistent that the leg is worse and that this is exactly how it felt before the last time. He was given a dose of IV vancomycin. His case was discussed with Dr. Goff. He will be discharged on clindamycin. He is to recheck with his primary doctors or return to the emergency room for reevaluation if needed. Source of Hx: Old records Re-Evaluation/Progress #1: Time of Eval: 01:23 Re-Evaluation/Progress Note: Rechecked the patient. He is sleeping in bed comfortably. Re-Evaluation/Progress #2: Time of Eval: 03:32 Re-Evaluation/Progress Note: Rechecked the patient, who is now awake. Discussed his lab results. The patient states that he did not have any lab abnormalities when he was last admitted to the hospital. He states that his current symptoms are similar to when he previously had cellulitis and he would like to be admitted to the hospital. The patient requests additional pain medication. He states that he has another 7-10 days of pain medication at home. Re-Evaluation/Progress #3: Time of Eval: 05:44 Re-Evaluation/Progress Note: Rechecked the patient. Discussed the conversation with Dr. Goff. Patient understands and agrees with the plan to be discharged home. Toe abrasion was cultured. Discharge instructions and follow-up discussed. All questions were addressed. Return to the ED warnings given. Consultation : Referral / Consult Name: Mathieu Goff MD Consulted With: On-call physician (Infectious Disease) Call Returned at: 05:41 Note: Spoke with Dr. Goff, infectious disease, about the patient's case. He agrees with assessment and does not feel hospital admission is warranted at this time. Counseled Regarding: Diagnosis, Lab results, Need for admission Discharge & Departure Impression: Primary Impression: Left leg cellulitis Disposition: Home Discharge Condition All VS Reviewed: Yes Condition: Stable Patient Instructions: Cellulitis (ED) Additional Instructions: No obvious evidence of infection at this time but due to the increasing symptoms and your history, we will add an additional antibiotic. Clindamycin 300 mg 4 times a day, prepack dispensed. The small sore on the toe was cultured and blood cultures were drawn. Return to the emergency room tonight at 9 PM to see me and if your leg is worsening we will admit you to the hospital. Referrals: Mathieu Goff MD Attestation Portions of this note were transcribed by Allison Hannah. I, Dr. Crawford personally performed the history, physical exam and medical decision-making; I reviewed and confirmed the accuracy of the information in the transcribed note. Signed by: Kenney Parks, 09/01/2016 0555 copies to: Mathieu Goff MD, Nino Root MD Aug 31, 2016 23:33 Allison Hannah Aug 31, 2016 23:44
[2016-09-01 00:07] LABS: BASOPHILS % (AUTO) 0.5 % (0-3); EOSINOPHILS % (AUTO) 8.8 % (0-5); MONOCYTES % (AUTO) 10.4 % (4-12); Mean Corpuscular Hemoglobin 30.8 pg (27.0-35.0); Mean Corpuscular Volume 86.7 fL (81-100); NEUTROPHILS % (AUTO) 61.3 % (40-74); Platelet Count 68 bil/L (150-400)
[2016-09-01 00:25] LABS: INR 1.2 ratio
[2016-09-01 00:35] LABS: Magnesium 1.5 mg/dL (1.6-2.6)
[2016-09-01] MEDS ORDERED: Vancomycin Inj 1,500 MG in 0.9% Sodium Chloride 500 ML IV ONE (04:00)
[2016-09-01] MEDS ORDERED: Vancomycin Inj 2,000 MG in 0.9% Sodium Chloride 500 ML IV ONE (04:00)
[2016-09-01] MEDS: HYDROmorphone 1 mg/mL Inj IVPUSH PRN ×2 (04:52→05:49)
[2016-09-01 04:53] VITALS: BP 140/78; PULSE 74; RESP 16; O2SAT 99
[2016-09-01 07:15] VITALS: BP 165/88; PULSE 82; RESP 22
[2016-09-01] MEDS ORDERED: Vancomycin Dose per Pharmacist XX ONE (08:30)
--- NOTE | 2016-09-01 08:36 | DRSVH ---
PROCEDURE: US VEINOUS LEG DUPLEX UNILATERAL, LEFT INDICATIONS: left leg swelling TECHNIQUE: Real-time imaging, as well as color and pulse Doppler interrogation, were performed of the lower extr emity deep veins from the inguinal ligament to the popliteal fossa. COMPARISON: None. FINDINGS: The deep veins are normally compressible, and free of intraluminal thrombus. Color and pu lse Doppler demonstrate normal phasic intraluminal flow. There is normal augmentation response to di stal compression maneuver. IMPRESSION: No deep venous thrombosis identified within the left lower extremity. Dictated by: Peter Edouard [facility] Interpreted: Mayra Butterfield MD on 09/01/2016 at 8:35 Transcribed by: SANDHYA on 09/01/2016 at 8:36 Approved by: Mayra Butterfield MD, PhD on 09/01/2016 at 8:47
== END 2016-09-01 07:20 | disposition home or self-care (01) ==
LOC: SED 21:13
DX: L03.116 Cellulitis of left lower limb (principal); E11.9 Type 2 diabetes mellitus without complications; I10 Essential (primary) hypertension; Z88.0 Allergy status to penicillin; Z88.8 Allergy status to other drugs, medicaments and biological substances; Z87.01 Personal history of pneumonia (recurrent); Z86.19 Personal history of other infectious and parasitic diseases; Z86.14 Personal history of Methicillin resistant Staphylococcus aureus infection; Z79.84 Long term (current) use of oral hypoglycemic drugs; Z79.4 Long term (current) use of insulin
CPT/HCPCS: 36415; 80053; 83735; 85025; 85610; 87040; 93970; 96365; 96375; 99285; J1170; J3370; J7040

== ENCOUNTER 2016-09-01 16:34 | Emergency (ER) | payer MEDICARE, MEDICAID ==
[~2016-09-01] VITALS: Ht 177.8 cm; Wt 97.7 kg
[2016-09-01 16:42] VITALS: BP 153/78; PULSE 89; RESP 18; O2SAT 99
--- NOTE | 2016-09-01 18:47 | ED.REPORT ---
HPI-Extremity Problem Lower Date of Service Sep 01, 2016 ED Provider: Jersey Carrillo MD Patient is a 61 year old male with a medical history including diabetes, hypertension, hepatitis C, chronic venous stasis, chronic opiate use with drug- seeking behavior, and previously septic arthritis now on lifelong doxycycline who presents to the ED with bilateral leg swelling, redness, and pain onset three days ago. The pain extends from his toes to his hip. The patient was seen yesterday in the ED with similar symptoms. He received IV vancomycin and Dr. Goff with ID was consulted. He was subsequently discharged with a prescription for clindamycin. The patient denies other symptoms at this time. He presents requesting pain medication. Nursing Notes Stated Complaint: POSSIBLE LEFT LEG INFECTION Chief Complaint: Wound Recheck/Suture Removal Nursing Notes Reviewed: Yes Allergies: Coded Allergies: Penicillins (Verified Allergy, Severe, Severe itching/hives, OK WITH CEPHALOSPORINS, 09/01/16) PT TAKES KEFLEX AT HOME RECEIVED ROCEPHIN ON 08/16; NO PROBLEMS NOTED ketorolac (Verified Adverse Reaction, Intermediate, 09/01/16) Scheduled Ascorbic Acid (Vitamin C) 1,000 Mg Tab.chew 1,000 MG PO DAILY Cephalexin (Keflex) 500 Mg Capsule 500 MG PO QID Cephalexin (Cephalexin) 500 Mg Capsule 500 MG PO QID Cholecalciferol (Vitamin D3) (Vitamin D3) 2,000 Unit Tablet 2,000 UNIT PO DAILY Doxycycline Monohyd (Doxycycline Monohyd) 100 Mg Capsule 100 MG PO BID Furosemide (Furosemide) 40 Mg Tablet 40 MG PO QAM Gabapentin (Gabapentin) 300 Mg Capsule 900 MG PO HS Magnesium Oxide (Magnesium Oxide) 400 Mg Tablet 400 MG PO DAILY Metformin (Metformin) 850 Mg Tablet 850 MG PO BIDWM Potassium Chloride ER (Potassium Chloride ER) 20 Meq Tablet.er 20 MEQ PO DAILY TAKE WITH FOOD Vit B Comp&C/Folic Acid/Vit D3 (Dialyvite 800 Plus D Wafer) 800 Mcg-2,000 Unit Tab.chew 1 EACH PO DAILY Scheduled PRN Etodolac (Etodolac) 500 Mg Tablet 500 MG PO BIDWM PRN PRN For Pain Insulin Aspart (NovoLOG U-100 Pen) 100 Unit/Ml Insuln.pen 0-20 UNIT SUBQ TIDAC PRN PRN sliding scale 1 unit for BS>150, 1 unit increment for BS increment of 25 Oxycodone (Roxicodone) 5 Mg Tablet 15-20 MG PO QID PRN PRN For Pain diphenhydrAMINE HCl (Unisom) 50 Mg/30 Ml Liquid 50 MG PO HS PRN PRN Insomnia General Time Seen by MD: 17:45 Chief Complaint Other (Left Leg Pain, Redness, and Swelling) Hx Obtained From: Patient Arrived By: Walk-in Onset Occurred: 3 days ago Symptom Duration: Since onset Location: : Leg left Quality: Painful Severity: Current: Moderate Severity: Maximum: Moderate Pertinent Negative: Relieved by nothing Immunizations: Unknown Recent Healthcare: Recent doctor visit Similar Sx Previous: Yes Past Medical History Past Medical History Notes: Infectious disease followed by Dr. Goff Drug seeking behavior Past Medical History Recurrent left lower extremity cellulitis ( recent Admit July 2016) C diff November 2015 Chronic venous stasis Hepatitis C, now treated Syncope Bilateral lower extremity knee arthritis On chronic opiates, with history of drug-seeking behavior Hx of septic joint - on doxycycline Anxiety Hx of pneumonia Reports: Diabetes mellitus, Hypertension Reports: Depression Past Surgical History Left knee replacement (2011) with MRSA postoperative infection and hardware removal right knee ACL repair Family History Father CABG in his 60's Smoking History Never Smoker Social History Alcohol Use: Denies alcohol use Drug Use: Denies drug use Other Social History: Local resident Occupation lives with partner and her daughter and daughter's boyfriend and several young children Ambulatory Status Independent Review of Systems Review of Systems Note: + Left leg redness Constitutional: Denies: Chills, Fever Musculoskeletal: Reports: Extremity pain (Left leg), Extremity swelling (Left leg) Complete sys rev & neg: except as marked. Respiratory: Denies: Non-productive cough, Shortness of breath GI: Denies: Diarrhea, Vomiting Physical Exam Initial Vital Signs Vital Signs (First) Date Time Temp Pulse Resp B/P Pulse Ox O2 Delivery O2 Flow Rate FiO2 09/01/16 16:42 36.2 89 18 153/78 99 Room Air Initial VS: Reviewed Head / Eyes: Atraumatic, Normocephalic ENT: Conjunctiva normal, No scleral icterus Neck: Supple, Full range of motion Neurologic: Alert, Oriented Psychiatric: Mood/affect normal, Behavior normal Lower Extremity / Pelvis / MS: No erythema, Neurologic intact, Vascular intact (Good PT and DP pulses) Bilateral lower extremity skin changes consistent with stasis dermatitis Well-healed surgical scars to anterior aspect of bilateral knees General/Constitutional: Awake, Alert Respiratory / Chest: Breath sounds NL, Breath sounds = bilat, No respiratory distress Cardiovascular: Heart rate NL, Regular rhythm, Heart sounds NL, No gallop, No murmurs, No rubs Skin: Warm, Dry No signs of abscess or cellulitis Re-Eval/Medical Decision Med Decision/Clinical Course Patient is a 61 year old male with a medical history including diabetes, hypertension, hepatitis C, chronic venous stasis, chronic opiate use with drug- seeking behavior, and previously septic arthritis now on lifelong doxycycline who presents to the ED with bilateral leg swelling, redness, and pain onset three days ago. The pain extends from his toes to his hip. The patient was seen yesterday in the ED with similar symptoms. He received IV vancomycin and Dr. Goff with ID was consulted. He was subsequently discharged with a prescription for clindamycin. The patient denies other symptoms at this time. He presents requesting pain medication. Upon my chart review patient was seen yesterday by Dr. Crawford due to concern for left lower extremity cellulitis. His labs did not indicate leukocytosis with a white count of 4.4. He was given IV vancomycin and Dr. Goff was consulted. The patient was discharged with a prescription for Clindamycin. It was not felt that there was good objective evidence that his cellulitis was worse from his baseline LE edema. Here in the emergency department today the patient is afebrile and hemodynamically stable. He has significant bilateral lower extremity edema at baseline with associated changes consistent with stasis dermatitis. I do not see any lateralizing erythema, redness or warmth of his lower extremities suggestive of cellulitis. There is no evidence of abscess. He has some mild weeping of nonpurulent serous fluid from the lower extremities which is consistent with stasis dermatitis. While he is currently being treated for cellulitis I see no strong objective evidence thereof and he was without leukocytosis or fever yesterday and today. His primary concern today seems to be the pain related to his lower extremity edema and I have advised him to use compression stockings and elevate his legs to help with the swelling. I have advised him to follow up with his primary care physician regarding issues related to chronic pain. I reviewed his [employer] database and he has been receiving quite a few prescriptions for oxycodone for multiple providers and I am not comfortable providing additional narcotic pain medications to the patient today. When I explained this to the patient he became upset and requested to be discharged. Prior to discharge follow-up and return precautions were reviewed in detail with the patient who verbalized understanding and agreement with the plan. The patient was discharged in stable condition. Re-Evaluation/Progress : Time of Eval: 19:21 Patient Status: Condition improved Re-Evaluation/Progress Note: Discussed with patient physical exam findings, diagnosis, and plan for discharge. Follow-up and return to the ER instructions given. Patient agrees with plan for care and all questions were addressed. Counseled Regarding: Diagnosis, Need for follow-up, When/why to return to ED Discharge & Departure Impression: Primary Impression: Stasis dermatitis Laterality: bilateral Qualified Code: I87.2 - Venous insufficiency (chronic ) (peripheral) Additional Impressions: Swelling of lower extremity Chronic pain Chronic pain type: other chronic pain Qualified Code: G89.29 - Other chronic pain Opiate dependence Substance use status: with unspecified opioid-induced disorder Qualified Code : F11.29 - Opioid dependence with unspecified opioid-induced disorder Disposition: Home Discharge Condition All VS Reviewed: Yes Condition: Improved Patient Instructions: Stasis Dermatitis (ED) Additional Instructions: Thank you for seeking care at the emergency room. It is difficult for us to make definitive diagnoses in the ED but we believe that you are experiencing stasis dermatitis. You probably have some mild cellulitis. I think the main cause of her pain is due to the stasis dermatitis. Our primary goal today in the ED was to evaluate you for any life-threatening conditions. Your evaluation was reassuring. As discussed please elevate your legs but your body while you sleep. You should also use compression stockings. Continue taking the Clindamycin was prescribed yesterday. You have already been prescribed a lot of pain medications and I am not comfortable prescribing more pain meds here today. You should follow-up with your primary doctor in the next week. You should return to the ED immediately if you develop worsening redness, swelling, fevers, vomiting, cough, shortness of breath, chest pain, lightheadedness, weakness or any other concerning signs or symptoms. Thank you for letting us partake in your care today. Referrals: NOPCP (PCP) [facility] Scribe Attestation Portions of this note were transcribed by Glenda Francis. I, Dr. Carrillo, personally performed the history, physical exam, and medical decision-making; I reviewed and confirmed the accuracy of the information in the transcribed note. Signed by: Kenney Sexton, 09/01/2016, 21:50 copies to: [facility] Jersey Carrillo MD Sep 01, 2016 18:47 GLENDA FRANCIS Sep 01, 2016 19:21
== END 2016-09-01 19:38 | disposition home or self-care (01) ==
LOC: SED 16:34
DX: I87.2 Venous insufficiency (chronic) (peripheral) (principal); M79.89 Other specified soft tissue disorders; G89.29 Other chronic pain; F11.29 Opioid dependence with unspecified opioid-induced disorder; I10 Essential (primary) hypertension; E11.9 Type 2 diabetes mellitus without complications; Z79.4 Long term (current) use of insulin; Z79.84 Long term (current) use of oral hypoglycemic drugs; Z88.0 Allergy status to penicillin; Z88.8 Allergy status to other drugs, medicaments and biological substances

== ENCOUNTER 2016-10-09 00:12 | Emergency (ER) | payer MEDICARE, MEDICAID ==
[~2016-10-09] VITALS: Ht 177.8 cm; Wt 102.3 kg
[2016-10-09 00:21] VITALS: BP 129/77; PULSE 81; RESP 16; O2SAT 100
--- NOTE | 2016-10-09 01:00 | ED.REPORT ---
HPI-Trauma Minor / Fall Date of Service Oct 09, 2016 ED Provider: Bertram Newsome MD Pt is a 61 y.o. male who is a frequent ED visitor, with 8 visits this year, who has a hx of DM, HTN, recurrent left lower extremity cellulitis, and chronic opiate use with a hx of drug seeking behavior who presents to the ED c/o left hip and right shoulder pain secondary to a fall yesterday. Pt states that he was standing on a ladder when the ladder came out from underneath him. He denies head injury, LOC, neck pain, back pain nausea, vomiting, Pt states that he is currently taking 20mg of Oxycodone, and he took his last pill today at 1800 and does not have another refill until Sunday. Nursing Notes Stated Complaint: RT SHOULDER PAIN,FELL Chief Complaint: Extremity Trauma Nursing Notes Reviewed: Yes Allergies: Coded Allergies: Penicillins (Verified Allergy, Severe, Severe itching/hives, OK WITH CEPHALOSPORINS, 10/09/16) PT TAKES KEFLEX AT HOME RECEIVED ROCEPHIN ON 08/16; NO PROBLEMS NOTED ketorolac (Verified Adverse Reaction, Intermediate, 10/09/16) Scheduled Ascorbic Acid (Vitamin C) 1,000 Mg Tab.chew 1,000 MG PO DAILY Cephalexin (Keflex) 500 Mg Capsule 500 MG PO QID Cephalexin (Cephalexin) 500 Mg Capsule 500 MG PO QID Cholecalciferol (Vitamin D3) (Vitamin D3) 2,000 Unit Tablet 2,000 UNIT PO DAILY Doxycycline Monohyd (Doxycycline Monohyd) 100 Mg Capsule 100 MG PO BID Furosemide (Furosemide) 40 Mg Tablet 40 MG PO QAM Gabapentin (Gabapentin) 300 Mg Capsule 900 MG PO HS Magnesium Oxide (Magnesium Oxide) 400 Mg Tablet 400 MG PO DAILY Metformin (Metformin) 850 Mg Tablet 850 MG PO BIDWM Potassium Chloride ER (Potassium Chloride ER) 20 Meq Tablet.er 20 MEQ PO DAILY TAKE WITH FOOD Vit B Comp&C/Folic Acid/Vit D3 (Dialyvite 800 Plus D Wafer) 800 Mcg-2,000 Unit Tab.chew 1 EACH PO DAILY Scheduled PRN Etodolac (Etodolac) 500 Mg Tablet 500 MG PO BIDWM PRN PRN For Pain Insulin Aspart (NovoLOG U-100 Pen) 100 Unit/Ml Insuln.pen 0-20 UNIT SUBQ TIDAC PRN PRN sliding scale 1 unit for BS>150, 1 unit increment for BS increment of 25 Oxycodone (Roxicodone) 5 Mg Tablet 15-20 MG PO QID PRN PRN For Pain diphenhydrAMINE HCl (Unisom) 50 Mg/30 Ml Liquid 50 MG PO HS PRN PRN Insomnia General Time Seen by MD: 00:58 Chief Complaint Fall, Extremity pain Hx Obtained From: Patient Arrived By: Walk-in Onset Occurred: Just prior to arrival Symptom Duration: Since onset Caused by: Accidental, Fall from height... Location: Hip left Shoulder right Quality: Painful Severity: Current: Severe Severity: Maximum: Severe Past Medical History Past Medical History Notes: Infectious disease followed by Dr. Goff Drug seeking behavior Past Medical History Recurrent left lower extremity cellulitis ( recent Admit July 2016) C diff November 2015 Chronic venous stasis Hepatitis C, now treated Syncope Bilateral lower extremity knee arthritis On chronic opiates, with history of drug-seeking behavior Hx of septic joint - on doxycycline Anxiety Hx of pneumonia Reports: Diabetes mellitus, Hypertension Reports: Depression Past Surgical History Left knee replacement (2011) with MRSA postoperative infection and hardware removal right knee ACL repair Family History Father CABG in his 60's Smoking History Never Smoker Social History Alcohol Use: Denies alcohol use Drug Use: Denies drug use Other Social History: Local resident Occupation lives with partner and her daughter and daughter's boyfriend and several young children Ambulatory Status Independent Review of Systems Musculoskeletal: Reports: Extremity pain, Joint pain (Hip left), Denies: Back pain, Neck pain Neurologic: Denies: Change LOC, Headache Complete sys rev & neg: except as marked. Physical Exam Initial Vital Signs Vital Signs (First) Date Time Temp Pulse Resp B/P Pulse Ox O2 Delivery O2 Flow Rate FiO2 10/09/16 00:21 36.8 81 16 129/77 100 Room Air Initial VS: Reviewed Head / Eyes: Atraumatic, Normocephalic, PERRL Abdomen / GI: No distention Extremities: Vascular intact, Neuro intact Neurologic: Alert, Oriented, Nonfocal Psychiatric: Mood/affect normal, Behavior normal, Normal thought content General/Constitutional: Awake, Alert, Well appearing, Well developed, Well hydrated, Well nourished, Not toxic appearing Neck: Atraumatic, Supple, Full range of motion, Non-tender, No midline vertebral tend, No tracheal deviation Respiratory / Chest: Atraumatic, Breath sounds NL, Breath sounds = bilat, No respiratory distress Cardiovascular: Heart rate NL, Regular rhythm, Heart sounds NL, Cap refill not delayed, Peripheral circulation NL Upper Extremity / MS: Atraumatic, Inspection NL, No deformity, Neurologic intact, Vascular intact Upper Ext Brief Normals: Shoulder L exam normal, Elbow R exam normal Right Shoulder: Positive: Tenderness present... (diffuse, anterior), Negative: Deformity present Right Elbow: Negative: ROM reduced... Rash / Lesion Notes: Pt has chronic venous stasis to his bilateral lower extremities. Interpretation & Diagnostics X-Ray Interpretation Xray Interpretation: IMPRESSION: No fracture seen. X-Ray Ordered: Shoulder right Interpretation / Wet Read by: Wet read ED physician Interpretation: Normal exam, No fracture/dislocation Xray Interpretation: IMPRESSION: No fracture seen X-Ray Ordered: Hip left Interpretation / Wet Read by: Wet read ED physician Interpretation: Normal exam, No fracture/dislocation Re-Eval/Medical Decision Med Decision/Clinical Course 61M w/ diffuse R shoulder pain and L hip pain after fall from ladder yesterday. Well appearing. Reassuring exam with full ROM. No LOC, neck pain, COTE, vision changes, n/v. No other signs of trauma. XR neg for acute fx. Plan d/c w/ outpt f /u for chronic pain management. Careful return precautions discussed Source of Hx: Old records Re-Evaluation/Progress : Time of Eval: 02:52 Re-Evaluation/Progress Note: Pt rechecked. Discussed imaging results and plan for discharge. Pt understands and agrees with plan. Counseled Regarding: Diagnosis, Lab results, Need for follow-up, When/why to return to ED Discharge & Departure Impression: Primary Impression: Right shoulder strain Encounter type: initial encounter Qualified Code: S46.911A - Strain of unspecified muscle, fascia and tendon at shoulder and upper arm level, right arm , initial encounter Additional Impressions: Left hip pain Fall Encounter type: initial encounter Qualified Code: W19.XXXA - Unspecified fall, initial encounter Disposition: Home Discharge Condition All VS Reviewed: Yes Condition: Improved Additional Instructions: Thank you for entrusting us with your care today. Your evaluation and imaging were reassuring and no fracture was observed. If your pain persists I recommend you follow-up with your primary care provider for repeat imaging. Take your medications as prescribed, you must contact your primary care provider regarding your refill. Return if you develop worsening pain, weakness or numbness in your extremities, or any new or worsening symptoms. Referrals: NOPCP (PCP) [facility] Kenney Attestation Portions of this note were transcribed by Mckenna Laird. I, Dr. Newsome personally performed the history, physical exam and medical decision-making; I reviewed and confirmed the accuracy of the information in the transcribed note. Signed by: Kenney Zheng, 10/09/2016 and 0253. copies to: [facility] Bertram Newsome MD Oct 09, 2016 01:00 MCKENNA LAIRD Oct 09, 2016 01:07
--- NOTE | 2016-10-09 08:08 | DRSVH ---
PROCEDURE: X-RAY RIGHT SHOULDER, MINIMUM TWO VIEWS ([id number]) INDICATIONS: fall, eval for fx TECHNIQUE: 3 views of the shoulder were acquired. COMPARISON: 08/21/2016 FINDINGS: Bones: No fractures or dislocations. No suspicious bony lesions. Visualized ribs appear intact. De generative glenohumeral and acromioclavicular joint disease. Soft tissues: No suspicious soft tissue calcifications. IMPRESSION: 1. No apparent fracture or dislocation. 2. Osteoarthritis Dictated by: Nino Mejía M.D. on 10/09/2016 at 8:04 Approved by: Nino Mejía M.D. on 10/09/2016 at 8:07
--- NOTE | 2016-10-09 08:11 | DRSVH ---
PROCEDURE: X-RAY PELVIS W/LAT HIP (LT) ([id number]) INDICATIONS: fall, eval for fx TECHNIQUE: AP pelvis with lateral view(s) of the left hip(s). COMPARISON: None. FINDINGS: Bones: No fractures or dislocations. Pelvic ring appears intact. No suspicious bony lesions. Degen erative hip joint disease. Partially visualized left femoral mary Soft tissues: The visualized bowel gas pattern is normal. No suspicious soft tissue calcifications. IMPRESSION: 1. No fracture identified. 2. Arthritic joint disease. Dictated by: Nino Mejía M.D. on 10/09/2016 at 8:07 Approved by: Nino Mejía M.D. on 10/09/2016 at 8:09
== END 2016-10-09 03:15 | disposition home or self-care (01) ==
LOC: SED 00:12
DX: S46.911A Strain of unspecified muscle, fascia and tendon at shoulder and upper arm level, right arm, initial encounter (principal); M25.552 Pain in left hip; W11.XXXA Fall on and from ladder, initial encounter; Y93.89 Activity, other specified; Y92.9 Unspecified place or not applicable; Y99.8 Other external cause status; E11.9 Type 2 diabetes mellitus without complications; I10 Essential (primary) hypertension; Z79.899 Other long term (current) drug therapy; Z79.84 Long term (current) use of oral hypoglycemic drugs

== ENCOUNTER 2016-10-23 08:40 | Emergency (ER) | payer MEDICAID, MEDICARE ==
[~2016-10-23] VITALS: Ht 177.8 cm; Wt 104.1 kg
[2016-10-23 08:50] VITALS: BP 147/74; PULSE 73; RESP 13; O2SAT 100
[2016-10-23] MEDS ORDERED: Ondansetron 2 mg/mL 2 mL Inj IVPUSH ONE (09:00)
[2016-10-23] MEDS ORDERED: 0.9% Sodium Chloride 1,000 ML IV ONE (09:00)
--- NOTE | 2016-10-23 09:02 | ED.REPORT ---
HPI-General Illness Date of Service Oct 23, 2016 ED Provider: Kia Matthews MD The pt is a 61 y/o male w/ a hx of diabetes, depression, and Hepatitis C, presenting to the ED complaining of diarrhea onset three days ago. He is also experiencing nausea, vomiting, fever (high of 103F), peripheral edema, and diffuse abdominal pain. The pt has taken Lasix and been elevating his legs to help reduce the swelling. He last had an episode of vomiting and diarrhea 1 hour ago. The pt is unable to keep his pain medication down, which he takes for his chronic knee pain. His last pain medication dose that he was able to keep down was three days ago. His granddaughter currently has C. Diff. Denies hematemesis or blood in the stool. Records show that the pt was prescribed 140 Oxycodone 20 mg tablets (filled on October 10) as well as140 15 mg tablets. Nursing Notes Stated Complaint: VOMITING/DIARRHEA Chief Complaint: General Complaint Nursing Notes Reviewed: Yes Allergies: Coded Allergies: Penicillins (Verified Allergy, Severe, Severe itching/hives, OK WITH CEPHALOSPORINS, 10/09/16) PT TAKES KEFLEX AT HOME RECEIVED ROCEPHIN ON 08/16; NO PROBLEMS NOTED ketorolac (Verified Adverse Reaction, Intermediate, 10/09/16) Scheduled Ascorbic Acid (Vitamin C) 1,000 Mg Tab.chew 1,000 MG PO DAILY Cephalexin (Keflex) 500 Mg Capsule 500 MG PO QID Cephalexin (Cephalexin) 500 Mg Capsule 500 MG PO QID Cholecalciferol (Vitamin D3) (Vitamin D3) 2,000 Unit Tablet 2,000 UNIT PO DAILY Doxycycline Monohyd (Doxycycline Monohyd) 100 Mg Capsule 100 MG PO BID Furosemide (Furosemide) 40 Mg Tablet 40 MG PO QAM Gabapentin (Gabapentin) 300 Mg Capsule 900 MG PO HS Magnesium Oxide (Magnesium Oxide) 400 Mg Tablet 400 MG PO DAILY Metformin (Metformin) 850 Mg Tablet 850 MG PO BIDWM Potassium Chloride ER (Potassium Chloride ER) 20 Meq Tablet.er 20 MEQ PO DAILY TAKE WITH FOOD Vit B Comp&C/Folic Acid/Vit D3 (Dialyvite 800 Plus D Wafer) 800 Mcg-2,000 Unit Tab.chew 1 EACH PO DAILY Scheduled PRN Etodolac (Etodolac) 500 Mg Tablet 500 MG PO BIDWM PRN PRN For Pain Insulin Aspart (NovoLOG U-100 Pen) 100 Unit/Ml Insuln.pen 0-20 UNIT SUBQ TIDAC PRN PRN sliding scale 1 unit for BS>150, 1 unit increment for BS increment of 25 Oxycodone (Roxicodone) 5 Mg Tablet 15-20 MG PO QID PRN PRN For Pain Promethazine (Promethazine) 25 Mg Tablet 25 MG PO Q6H PRN PRN For Nausea diphenhydrAMINE HCl (Unisom) 50 Mg/30 Ml Liquid 50 MG PO HS PRN PRN Insomnia General Time Seen by MD: 08:57 Chief Complaint Diarrhea Hx Obtained From: Patient Arrived By: Walk-in Sudden in Onset?: Yes Onset Occurred: 3 days ago Recent Healthcare: Recent doctor visit, Recent hospitalization Similar Sx Previous: No Past Medical History Past Medical History Notes: Infectious disease followed by Dr. Goff Drug seeking behavior Past Medical History Recurrent left lower extremity cellulitis ( recent Admit July 2016) C diff November 2015 Chronic venous stasis Hepatitis C, now treated Syncope Bilateral lower extremity knee arthritis On chronic opiates, with history of drug-seeking behavior Hx of septic joint - on doxycycline Anxiety Hx of pneumonia Reports: Diabetes mellitus, Hypertension Reports: Depression Past Surgical History Left knee replacement (2011) with MRSA postoperative infection and hardware removal right knee ACL repair Family History Father CABG in his 60's Smoking History Never Smoker Social History Alcohol Use: Denies alcohol use Drug Use: Denies drug use Other Social History: Local resident Occupation lives with partner and her daughter and daughter's boyfriend and several young children Ambulatory Status Independent Review of Systems Full Review of Systems Constitutional: Reports: Fever Cardiovascular: Reports: Edema (Lower extremities ) GI: Reports: Abdominal pain (Diffuse ), Diarrhea, Nausea, Vomiting, Denies: Bloody/tarry stool, Hematemesis Complete sys rev & neg: except as marked. Physical Exam Vital Signs Vital Signs Date Time Temp Pulse Resp B/P Pulse Ox O2 Delivery O2 Flow Rate FiO2 10/23/16 08:50 37.7 73 13 147/74 100 Room Air Initial VS: Reviewed General/Constitutional: Awake, Alert Head / Eyes: Atraumatic, Normocephalic ENT: Atraumatic, Airway patent Neck: Atraumatic, Supple, Full range of motion Respiratory / Chest: Atraumatic, Breath sounds NL, Breath sounds = bilat, No respiratory distress, No rales, No rhonchi, No wheezing Cardiovascular: Heart rate NL, Regular rhythm 3/6 systolic ejection murmur No lower extremity edema but chronic venous stasis changes Abdomen: Soft Tenderness/Guarding/Rebound: Positive: Tender diffuse (Moderate ), Tender epigastric (Mild ) Abdominal wall tenderness secondary to vomiting Skin: Atraumatic, Color NL, No rash, Warm, Dry Neurologic: Oriented X3, Speech NL Psychiatric: Affect NL, Mood NL Interpretation & Diagnostics Lab Results Interpretation Result Diagram: 10/23/16 0915 10/23/16 0915 Test 10/23/16 09:15 10/23/16 10:29 White Blood Count 4.5th/mm3 (3.8-10.1) Red Blood Count 4.57mil/mm3 (4.40-5.80) Hemoglobin 14.0g/dL (13.8-17.2) Hematocrit 39.0% (41.0-50.0) Mean Corpuscular Volume 85.3fL (81-100) Mean Corpuscular Hemoglobin 30.6pg (27.0-35.0) Mean Corpuscular Hemoglobin Concent 35.9% (32.0-37.0) Red Cell Distribution Width 14.6% (12.3-15.4) Platelet Count 82bil/L (150-400) Neutrophils (%) (Auto) 81.8% (40-74) Lymphocytes (%) (Auto) 13.4% (14-46) Monocytes (%) (Auto) 3.6% (4-12) Eosinophils (%) (Auto) 0.4% (0-5) Basophils (%) (Auto) 0.4% (0-3) Sodium Level 137mEq/L (134-144) Potassium Level 4.1mEq/L (3.5-5.2) Chloride Level 104mEq/L (97-108) Carbon Dioxide Level 20mmol/L (18-29) Blood Urea Nitrogen 10mg/dL (8-27) Creatinine 0.53mg/dL (0.76-1.27) Estimat Glomerular Filtration Rate 167mL/min (>59) Glucose Level 343mg/dL (60-99) Calcium Level 9.2mg/dL (8.5-10.1) Magnesium Level 1.8mg/dL (1.6-2.6) Total Bilirubin 1.4mg/dL (0.0-1.2) Aspartate Amino Transf (AST/SGOT) 22U/L (0-50) Alanine Aminotransferase (ALT/SGPT) 16U/L (0-44) Alkaline Phosphatase 103U/L (25-160) Total Protein 7.4g/dL (6.4-8.4) Albumin 3.5g/dL (3.4-5.0) Lipase 68U/L (13-60) Hold Urine Received (Received) Re-Eval/Medical Decision Source of Hx: Old records Time of Eval: 10:26 Re-Evaluation/Progress Note: Rechecked pt, who is still feeling nauseas. Counseled Regarding: Diagnosis, Lab results, Need for follow-up, When/why to return to ED Discharge & Departure Primary Impression: Nausea vomiting and diarrhea Disposition: Home Discharge Condition All VS Reviewed: Yes Condition: Stable Additional Instructions: Thank you for coming into the emergency department today. I have sent your stool sample to see if there is anything that can be fixed/ treated. I'm reassured that the diarrhea is slowing here in the ER. This test also looks for c.diff. Your kidney tests and liver tests all look good today. There is also no evidence of significant or overwhelming infection today I prescribed you phenergan, anti-nausea medication, which you may take every 6 hours as needed. The next dose can be taken at 3PM. this prescription has been electronically sent to the [facility] pharmacy for you Return to the emergency department if your symptoms worsen. I hope you feel better soon. Referrals: Racquel Bergeron PA-C (PCP) Scribe Attestation Portions of this note were transcribed by Mario Lee. I, Dr. Matthews personally performed the history, physical exam and medical decision-making; I reviewed and confirmed the accuracy of the information in the transcribed note. Signed by : Kenney Dawn, 10/23/16 and 0940. copies to: Racquel Bergeron PA-C, Shawna L MD Oct 23, 2016 09:02 Mario Lee Oct 23, 2016 09:32
[2016-10-23] MEDS ORDERED: HYDROmorphone 1 mg/mL Inj IVPUSH ONE (09:20)
[2016-10-23 09:28] LABS: BASOPHILS % (AUTO) 0.4 % (0-3); EOSINOPHILS % (AUTO) 0.4 % (0-5); MONOCYTES % (AUTO) 3.6 % (4-12); Mean Corpuscular Hemoglobin 30.6 pg (27.0-35.0); Mean Corpuscular Volume 85.3 fL (81-100); NEUTROPHILS % (AUTO) 81.8 % (40-74); Platelet Count 82 bil/L (150-400)
[2016-10-23 09:47] LABS: Magnesium 1.8 mg/dL (1.6-2.6)
[2016-10-23] MEDS ORDERED: PROM25TA14 PO (12:37)
[2016-10-24] MEDS ORDERED: ONDA4TAB12 PO (18:12)
== END 2016-10-23 12:56 | disposition home or self-care (01) ==
LOC: SED 08:40
DX: R11.2 Nausea with vomiting, unspecified (principal); R19.7 Diarrhea, unspecified; E11.9 Type 2 diabetes mellitus without complications; I10 Essential (primary) hypertension; I87.2 Venous insufficiency (chronic) (peripheral); B18.2 Chronic viral hepatitis C; Z96.652 Presence of left artificial knee joint; Z86.19 Personal history of other infectious and parasitic diseases; Z79.84 Long term (current) use of oral hypoglycemic drugs; Z79.4 Long term (current) use of insulin; Z88.0 Allergy status to penicillin; Z88.8 Allergy status to other drugs, medicaments and biological substances
CPT/HCPCS: 36415; 80053; 83690; 83735; 85025; 87507; 96361; 96374; 96375; 99284; J1170; J2405; J7030

== ENCOUNTER 2016-10-24 13:10 | Emergency (ER) | payer MEDICARE ==
[~2016-10-24] VITALS: Ht 177.8 cm; Wt 102.3 kg
[~2016-10-24 13:10] MED LIST changes: +PROM25TA14 PO
[2016-10-24 13:12] VITALS: BP 130/82; PULSE 71; RESP 16; O2SAT 96
--- NOTE | 2016-10-24 14:04 | ED.REPORT ---
HPI-Abd Pain M 40 and Over Date of Service Oct 24, 2016 ED Provider: Karthik Silva MD Patient is a 61 year old male who is a frequent ED visitor with a history of diabetes, depression and Hep C who presents to the ED complaining of worsening abdominal pain for the past 4 days. Associated symptoms include nausea, diarrhea , weakness, vomiting and fever yesterday. Patient reports that his last episode of diarrhea was one hour prior to arrival to the ED and that his last episode of vomiting was in the waiting room of the ED. He states that he has been unable to keep down his chronic pain medication. The patient was notified yesterday that his stool sample was negative for C Diff. Nursing Notes Stated Complaint: VOMITING/ DIARRHEA Chief Complaint: Male Abdominal Pain Nursing Notes Reviewed: Yes Allergies: Coded Allergies: Penicillins (Verified Allergy, Severe, Severe itching/hives, OK WITH CEPHALOSPORINS, 10/24/16) PT TAKES KEFLEX AT HOME RECEIVED ROCEPHIN ON 08/16; NO PROBLEMS NOTED ketorolac (Verified Adverse Reaction, Intermediate, 10/24/16) Scheduled Ascorbic Acid (Vitamin C) 1,000 Mg Tab.chew 1,000 MG PO DAILY Cephalexin (Keflex) 500 Mg Capsule 500 MG PO QID Cephalexin (Cephalexin) 500 Mg Capsule 500 MG PO QID Cholecalciferol (Vitamin D3) (Vitamin D3) 2,000 Unit Tablet 2,000 UNIT PO DAILY Doxycycline Monohyd (Doxycycline Monohyd) 100 Mg Capsule 100 MG PO BID Furosemide (Furosemide) 40 Mg Tablet 40 MG PO QAM Gabapentin (Gabapentin) 300 Mg Capsule 900 MG PO HS Magnesium Oxide (Magnesium Oxide) 400 Mg Tablet 400 MG PO DAILY Metformin (Metformin) 850 Mg Tablet 850 MG PO BIDWM Ondansetron ODT (Ondansetron ODT) 4 Mg Tab.rapdis 4 MG PO QID Potassium Chloride ER (Potassium Chloride ER) 20 Meq Tablet.er 20 MEQ PO DAILY TAKE WITH FOOD Vit B Comp&C/Folic Acid/Vit D3 (Dialyvite 800 Plus D Wafer) 800 Mcg-2,000 Unit Tab.chew 1 EACH PO DAILY Scheduled PRN Etodolac (Etodolac) 500 Mg Tablet 500 MG PO BIDWM PRN PRN For Pain Insulin Aspart (NovoLOG U-100 Pen) 100 Unit/Ml Insuln.pen 0-20 UNIT SUBQ TIDAC PRN PRN sliding scale 1 unit for BS>150, 1 unit increment for BS increment of 25 Oxycodone (Roxicodone) 5 Mg Tablet 15-20 MG PO QID PRN PRN For Pain Promethazine (Promethazine) 25 Mg Tablet 25 MG PO Q6H PRN PRN For Nausea diphenhydrAMINE HCl (Unisom) 50 Mg/30 Ml Liquid 50 MG PO HS PRN PRN Insomnia General Time Seen by MD: 14:01 Chief Complaint Abdominal pain Hx Obtained From: Patient Arrived By: Walk-in Sudden in Onset?: No Onset Occurred: 4 days ago Symptom Duration: Since onset Progression since Onset: Unchanged Associated with: Reports: Diarrhea, Nausea, Vomiting Recent Healthcare: Recent doctor visit, Recent hospitalization Similar Sx Previous: Yes Past Medical History Past Medical History Notes: Infectious disease followed by Dr. Goff Drug seeking behavior Past Medical History Recurrent left lower extremity cellulitis ( recent Admit July 2016) C diff November 2015 Chronic venous stasis Hepatitis C, now treated Syncope Bilateral lower extremity knee arthritis On chronic opiates, with history of drug-seeking behavior Hx of septic joint - on doxycycline Anxiety Hx of pneumonia Reports: Diabetes mellitus, Hypertension Reports: Depression Past Surgical History Left knee replacement (2011) with MRSA postoperative infection and hardware removal right knee ACL repair Family History Father CABG in his 60's Smoking History Never Smoker Social History Alcohol Use: Denies alcohol use Drug Use: Denies drug use Other Social History: Frequent ED visitor, Local resident Occupation lives with partner and her daughter and daughter's boyfriend and several young children Ambulatory Status Independent Review of Systems Constitutional: Reports: Fever, Weakness - generalized, Denies: Chills Respiratory: Denies: Non-productive cough, Shortness of breath GI: Reports: Abdominal pain, Diarrhea, Nausea, Vomiting Complete sys rev & neg: except as marked. Physical Exam Initial Vital Signs Vital Signs (First) Date Time Temp Pulse Resp B/P Pulse Ox O2 Delivery O2 Flow Rate FiO2 10/24/16 13:12 36.6 71 16 130/82 96 Room Air Initial VS: Reviewed General/Constitutional: Awake, Alert Respiratory / Chest: Atraumatic, Breath sounds NL, Breath sounds = bilat, No respiratory distress Cardiovascular: Heart rate NL, Regular rhythm Heart Sounds / Murmur: Positive: Systolic murmur present.. (III/) Abdomen: Atraumatic, Soft, No guarding, No rebound, BS normoactive Tenderness/Guarding/Rebound: Positive: Tender diffuse Back: Atraumatic, Full range of motion Head / Eyes: Atraumatic, Normocephalic, PERRL, EOMI ENT: Atraumatic, Airway patent, Mucous membranes moist Skin: Atraumatic, Color NL, No rash, Warm, Dry Neurologic: Oriented X3, Speech NL, No motor deficits, No sensory deficits Psychiatric: Affect NL, Mood NL Interpretation & Diagnostics Lab Results Interpretation Result Diagram: 10/24/16 1455 10/24/16 1455 Test 10/24/16 14:55 10/24/16 15:00 White Blood Count 5.5th/mm3 (3.8-10.1) Red Blood Count 4.19mil/mm3 (4.40-5.80) Hemoglobin 12.9g/dL (13.8-17.2) Hematocrit 35.8% (41.0-50.0) Mean Corpuscular Volume 85.4fL (81-100) Mean Corpuscular Hemoglobin 30.8pg (27.0-35.0) Mean Corpuscular Hemoglobin Concent 36.0% (32.0-37.0) Red Cell Distribution Width 14.5% (12.3-15.4) Platelet Count 88bil/L (150-400) Neutrophils (%) (Auto) 59.6% (40-74) Lymphocytes (%) (Auto) 24.1% (14-46) Monocytes (%) (Auto) 10.9% (4-12) Eosinophils (%) (Auto) 4.5% (0-5) Basophils (%) (Auto) 0.7% (0-3) Sodium Level 135mEq/L (134-144) Potassium Level 3.9mEq/L (3.5-5.2) Chloride Level 103mEq/L (97-108) Carbon Dioxide Level 20mmol/L (18-29) Blood Urea Nitrogen 10mg/dL (8-27) Creatinine 0.57mg/dL (0.76-1.27) Estimat Glomerular Filtration Rate 153mL/min (>59) Glucose Level 237mg/dL (60-99) Calcium Level 8.6mg/dL (8.5-10.1) Total Bilirubin 1.4mg/dL (0.0-1.2) Aspartate Amino Transf (AST/SGOT) 17U/L (0-50) Alanine Aminotransferase (ALT/SGPT) 13U/L (0-44) Alkaline Phosphatase 88U/L (25-160) Total Protein 6.6g/dL (6.4-8.4) Albumin 3.3g/dL (3.4-5.0) Lipase 71U/L (13-60) Hold Urine Received (Received) CT Abd / Pelvis Interpretation IMPRESSION: 1. Hepatic cirrhosis. 2. Splenomegaly and numerous splenic, gastroesophageal and paraumbilical vein varices compatible with sequela of chronic portal hypertension. 3. Colonic diverticulosis without evidence of diverticulitis. 4. No free fluid or air. 5. No dilated loops of bowel. 6. Partially calcified splenic lesion which is stable compared to prior MRI. The lesion may represent sequela of prior splenic infarct. 7. Anterior urinary bladder wall thickening. Recommend urology consultation to exclude urothelial carcinoma. 8. Small bilateral inguinal hernias. 9. 1 mm nonobstructing right renal stone. Dictated by: Mayra Butterfield MD, PhD on 10/24/2016 at 17:36 Approved by: Mayra Butterfield MD, PhD on 10/24/2016 at 17:44 Interpretation / Wet Read by: Interpret - Radiologist Re-Eval/Medical Decision Med Decision/Clinical Course Frequent ED visitor presents complaining of nausea vomiting and diarrhea wth abdominal pain. This is his second ED visit in 2 days. Were not observing vomiting or diarrhea in the emergency department. Labs are reassuring and imaging today is likewise reassuring. We note a minimally elevated lipase, if he does indeed have pancreatitis is would be quite mild. After IV fluids and antiemetics and pain medications he is improved and able to tolerate by mouth's without difficulty. He did not feel as though promethazine helped him, we will try ondansetron as a home antiemetic. Time of Eval: 16:46 Re-Evaluation/Progress Note: Patient reports he is better but still having abdominal pain and nausea. Discussed plan for a CT. Time of Eval: 18:05 Re-Evaluation/Progress Note: Patient is still tolerating PO and feeling better. Discussed CT results and plan for discharge. Patient understands and agrees to plan. All questions were addressed. Counseled Regarding: Diagnosis, Lab results, Need for follow-up, When/why to return to ED Discharge & Departure Primary Impression: Abdominal pain Abdominal location: epigastric Qualified Code: R10.13 - Epigastric pain Disposition: Home Vital Signs - All Vital Signs Date Time Temp Pulse Resp B/P Pulse Ox O2 Delivery O2 Flow Rate FiO2 10/24/16 18:32 36.6 75 14 136/87 97 Room Air 10/24/16 17:08 71 16 123/68 100 10/24/16 13:12 36.6 71 16 130/82 96 Room Air )( All Prior VS Reviewed: Yes Condition: Stable Additional Instructions: Emergency department evaluation today included interview exam labs and CT of abdomen and pelvis. Prior records including yesterday's visit were reviewed. No serious cause for abdominal pain nausea vomiting identified. May use ondansetron as needed for nausea and vomiting at home, a prescription was sent. Continue previous home medications for pain. Return to emergency department if symptoms are increasing, call primary care for follow-up later this week. Referrals: Racquel Bergeron PA-C (PCP) Kenney Attestation Portions of this note were transcribed by sOiris Chowdary. I, Dr. Silva personally performed the history, physical exam and medical decision-making; I reviewed and confirmed the accuracy of the information in the transcribed note. Signed by: Kenney Orona, 10/24/16 and 1430 copies to: Racquel Bergeron PA-C, Donald L MD Oct 24, 2016 14:03 Nicci Chowdary Oct 24, 2016 14:27
[2016-10-24] MEDS ORDERED: 0.9% Sodium Chloride 1,000 ML IV ONE (14:37)
[2016-10-24] MEDS ORDERED: ProchlorPERazine 5 mg/mL 2 mL Inj IVPUSH ONE (14:40)
[2016-10-24] MEDS ORDERED: HYDROMORPHONE 2 MG/ML IV ONE (14:40)
[2016-10-24] MEDS ORDERED: HYDROmorphone 1 mg/mL Inj IV ONE (14:50)
[2016-10-24 15:02] LABS: EOSINOPHILS % (AUTO) 4.5 % (0-5)
[2016-10-24 15:11] LABS: BASOPHILS % (AUTO) 0.7 % (0-3); MONOCYTES % (AUTO) 10.9 % (4-12); Mean Corpuscular Hemoglobin 30.8 pg (27.0-35.0); Mean Corpuscular Volume 85.4 fL (81-100); NEUTROPHILS % (AUTO) 59.6 % (40-74); Platelet Count 88 bil/L (150-400)
[2016-10-24 17:08] VITALS: BP 123/68; PULSE 71; RESP 16; O2SAT 100
--- NOTE | 2016-10-24 17:46 | DRSVH ---
PROCEDURE: CT ABDOMEN AND PELVIS WITH CONTRAST ([id number]) INDICATIONS: abd pain, TECHNIQUE: After the administration of intravenous contrast, 5 mm thick sections acquired from the diaphragm to the symphysis. 5 mm coronal and sagittal reformats were acquired. For radiation dose reduction, the following was used: automated exposure control, adjustment of mA and/or kV according to patient bhanu mauro. COMPARISON: [facility], MR, MR ABD W&WO CON, 06/07/2016, 7:49. FINDINGS: Image quality: Excellent. ABDOMEN: Lung bases: Lung bases are clear. Heart size is normal. Solid organs: Liver has nodular margins compatible with hepatic cirrhosis. Spleen is enlarged. Par tially calcified lesion in the inferior and lateral margin of the spleen is stable compared to prior MRI Multiple perisplenic and gastroesophageal venous varices as well as recanalization of the paraum bilical vein noted compatible with sequela of portal hypertension. Gallbladder is contracted, but wi thin normal limits. Biliary system is non dilated. Pancreas enhances normally. No adrenal nodules. Kidneys demonstrate normal size and enhancement, without hydronephrosis. 1 mm nonobstructing right renal stone noted. Peritoneum and bowel: Bowel loops demonstrate normal wall thickness and caliber. Scattered diverticu li noted in the colon without evidence of diverticulitis. No free fluid or air. The appendix is ute l. Nodes and vessels: No retroperitoneal or mesenteric adenopathy by size criteria. Aorta and inferior vena cava are normal in size. Scattered atherosclerotic calcifications are noted in the abdominal an d pelvic vasculature. Miscellaneous: No ventral hernias. PELVIS: Genitourinary: Bladder wall is thickened anteriorly. Miscellaneous: No inguinal hernias or adenopathy. Bones: No suspicious bony lesions. Chronic appearing L2 impression fracture noted. Spine degenerati ve disease and facet arthropathy noted. IMPRESSION: 1. Hepatic cirrhosis. 2. Splenomegaly and numerous splenic, gastroesophageal and paraumbilical vein varices compatible wit h sequela of chronic portal hypertension. 3. Colonic diverticulosis without evidence of diverticulitis. 4. No free fluid or air. 5. No dilated loops of bowel. 6. Partially calcified splenic lesion which is stable compared to prior MRI. The lesion may represe nt sequela of prior splenic infarct. 7. Anterior urinary bladder wall thickening. Recommend urology consultation to exclude urothelial c arcinoma. 8. Small bilateral inguinal hernias. 9. 1 mm nonobstructing right renal stone. Dictated by: Mayra Butterfield MD, PhD on 10/24/2016 at 17:36 Approved by: Mayra Butterfield MD, PhD on 10/24/2016 at 17:44
[2016-10-24] MEDS ORDERED: ONDA4TAB12 PO (18:12)
[2016-10-24 18:32] VITALS: BP 136/87; PULSE 75; RESP 14; O2SAT 97
== END 2016-10-24 18:33 | disposition home or self-care (01) ==
LOC: SED 13:10
DX: R10.13 Epigastric pain (principal); R11.2 Nausea with vomiting, unspecified; R19.7 Diarrhea, unspecified; R53.1 Weakness; I10 Essential (primary) hypertension; E11.9 Type 2 diabetes mellitus without complications; F32.9 Major depressive disorder, single episode, unspecified; F41.9 Anxiety disorder, unspecified; Z86.19 Personal history of other infectious and parasitic diseases; Z88.0 Allergy status to penicillin; Z88.8 Allergy status to other drugs, medicaments and biological substances; Z79.4 Long term (current) use of insulin; Z79.84 Long term (current) use of oral hypoglycemic drugs; Z87.01 Personal history of pneumonia (recurrent)
CPT/HCPCS: 36415; 74177; 80053; 83690; 85025; 96361; 96374; 96375; 99285; J0780; J1170; J7030; Q9967

== ENCOUNTER 2016-10-31 16:05 | Emergency (ER) | payer MEDICARE, MEDICAID ==
[~2016-10-31] VITALS: Ht 177.8 cm; Wt 97.7 kg
[~2016-10-31 16:05] MED LIST changes: +ONDA4TAB12 PO
[2016-10-31 16:18] VITALS: BP 122/75; PULSE 72; RESP 18; O2SAT 98
[2016-10-31 17:48] LABS: BASOPHILS % (AUTO) 0.6 % (0-3); EOSINOPHILS % (AUTO) 3.1 % (0-5); MONOCYTES % (AUTO) 9.4 % (4-12); Mean Corpuscular Hemoglobin 30.8 pg (27.0-35.0); Mean Corpuscular Volume 86.1 fL (81-100); NEUTROPHILS % (AUTO) 72.4 % (40-74); Platelet Count 108 bil/L (150-400)
[2016-10-31 18:06] LABS: Magnesium 1.8 mg/dL (1.6-2.6)
--- NOTE | 2016-10-31 18:39 | ED.REPORT ---
HPI-Abd Pain M Under 40 Date of Service Oct 31, 2016 ED Provider: Juvenal Hay DO Pt is a 61 year old male with a history of DM and HTN who presents to the ED complaining of RUQ abdominal pain onset 4 days ago. He c/o associated nausea, vomiting, and diarrhea. He denies any other symptoms. The pt denies cholecystectomy. The pt reports that he takes 20 mg of oxycodone 5x a day. Nursing Notes Stated Complaint: NAUSEA, DIARRHEA Chief Complaint: Male Abdominal Pain Nursing Notes Reviewed: Yes Allergies: Coded Allergies: Penicillins (Verified Allergy, Severe, Severe itching/hives, OK WITH CEPHALOSPORINS, 10/24/16) PT TAKES KEFLEX AT HOME RECEIVED ROCEPHIN ON 08/16; NO PROBLEMS NOTED ketorolac (Verified Adverse Reaction, Intermediate, 10/24/16) Scheduled Ascorbic Acid (Vitamin C) 1,000 Mg Tab.chew 1,000 MG PO DAILY Cephalexin (Keflex) 500 Mg Capsule 500 MG PO QID Cephalexin (Cephalexin) 500 Mg Capsule 500 MG PO QID Cholecalciferol (Vitamin D3) (Vitamin D3) 2,000 Unit Tablet 2,000 UNIT PO DAILY Doxycycline Monohyd (Doxycycline Monohyd) 100 Mg Capsule 100 MG PO BID Furosemide (Furosemide) 40 Mg Tablet 40 MG PO QAM Gabapentin (Gabapentin) 300 Mg Capsule 900 MG PO HS Magnesium Oxide (Magnesium Oxide) 400 Mg Tablet 400 MG PO DAILY Metformin (Metformin) 850 Mg Tablet 850 MG PO BIDWM Ondansetron ODT (Ondansetron ODT) 4 Mg Tab.rapdis 4 MG PO QID Potassium Chloride ER (Potassium Chloride ER) 20 Meq Tablet.er 20 MEQ PO DAILY TAKE WITH FOOD Vit B Comp&C/Folic Acid/Vit D3 (Dialyvite 800 Plus D Wafer) 800 Mcg-2,000 Unit Tab.chew 1 EACH PO DAILY Scheduled PRN Etodolac (Etodolac) 500 Mg Tablet 500 MG PO BIDWM PRN PRN For Pain Insulin Aspart (NovoLOG U-100 Pen) 100 Unit/Ml Insuln.pen 0-20 UNIT SUBQ TIDAC PRN PRN sliding scale 1 unit for BS>150, 1 unit increment for BS increment of 25 Oxycodone (Roxicodone) 5 Mg Tablet 15-20 MG PO QID PRN PRN For Pain Promethazine (Promethazine) 25 Mg Tablet 25 MG PO Q6H PRN PRN For Nausea diphenhydrAMINE HCl (Unisom) 50 Mg/30 Ml Liquid 50 MG PO HS PRN PRN Insomnia General Time Seen by MD: 18:31 Chief Complaint Abdominal pain Hx Obtained From: Patient Arrived By: Walk-in Sudden in Onset?: No Onset Occurred: 4 days ago Symptom Duration: Since onset Location: : RUQ Quality: Painful Severity: Current: Moderate Severity: Maximum: Moderate Recent Healthcare: Recent doctor visit Similar Sx Previous: Yes Past Medical History Past Medical History Notes: Infectious disease followed by Dr. Goff Drug seeking behavior Past Medical History Recurrent left lower extremity cellulitis ( recent Admit July 2016) C diff November 2015 Chronic venous stasis Hepatitis C, now treated Syncope Bilateral lower extremity knee arthritis On chronic opiates, with history of drug-seeking behavior Hx of septic joint - on doxycycline Anxiety Hx of pneumonia Reports: Diabetes mellitus, Hypertension Reports: Depression Past Surgical History Left knee replacement (2011) with MRSA postoperative infection and hardware removal right knee ACL repair Family History Father CABG in his 60's Smoking History Never Smoker Social History Alcohol Use: Denies alcohol use Drug Use: Denies drug use Other Social History: Frequent ED visitor, Local resident Occupation lives with partner and her daughter and daughter's boyfriend and several young children Ambulatory Status Independent Review of Systems Constitutional: Denies: Fever Respiratory: Denies: Non-productive cough GI: Reports: Abdominal pain, Diarrhea, Nausea, Vomiting Complete sys rev & neg: except as marked. Physical Exam Initial Vital Signs Vital Signs (First) Date Time Temp Pulse Resp B/P Pulse Ox O2 Delivery O2 Flow Rate FiO2 10/31/16 16:18 37.1 72 18 122/75 98 Room Air Initial VS: Reviewed Head / Eyes: Atraumatic, Normocephalic Extremities: Vascular intact, Neuro intact Skin: Warm, Dry, No cyanosis Neurologic: Alert, Oriented, Nonfocal Psychiatric: Mood/affect normal, Behavior normal General/Constitutional: Awake, Alert, Cooperative Respiratory / Chest: Atraumatic, Breath sounds NL, Breath sounds = bilat Cardiovascular: Heart rate NL, Regular rhythm, Heart sounds NL Abdomen: Atraumatic, Soft Tenderness/Guarding/Rebound: Positive: Tender RUQ... (Mild) Back: Atraumatic, Full range of motion Interpretation & Diagnostics Lab Results Interpretation Result Diagram: 10/31/16 1739 10/31/16 1739 Test 10/31/16 17:39 10/31/16 20:15 10/31/16 21:27 White Blood Count 6.8th/mm3 (3.8-10.1) Red Blood Count 4.45mil/mm3 (4.40-5.80) Hemoglobin 13.7g/dL (13.8-17.2) Hematocrit 38.3% (41.0-50.0) Mean Corpuscular Volume 86.1fL (81-100) Mean Corpuscular Hemoglobin 30.8pg (27.0-35.0) Mean Corpuscular Hemoglobin Concent 35.8% (32.0-37.0) Red Cell Distribution Width 15.0% (12.3-15.4) Platelet Count 108bil/L (150-400) Neutrophils (%) (Auto) 72.4% (40-74) Lymphocytes (%) (Auto) 14.4% (14-46) Monocytes (%) (Auto) 9.4% (4-12) Eosinophils (%) (Auto) 3.1% (0-5) Basophils (%) (Auto) 0.6% (0-3) Sodium Level 133mEq/L (134-144) Potassium Level 4.6mEq/L (3.5-5.2) Chloride Level 101mEq/L (97-108) Carbon Dioxide Level 20mmol/L (18-29) Blood Urea Nitrogen 17mg/dL (8-27) Creatinine 0.56mg/dL (0.76-1.27) Estimat Glomerular Filtration Rate 157mL/min (>59) Glucose Level 341mg/dL (60-99) Calcium Level 8.9mg/dL (8.5-10.1) Magnesium Level 1.8mg/dL (1.6-2.6) Total Bilirubin 1.5mg/dL (0.0-1.2) Aspartate Amino Transf (AST/SGOT) 16U/L (0-50) Alanine Aminotransferase (ALT/SGPT) 11U/L (0-44) Alkaline Phosphatase 132U/L (25-160) Troponin T < 0.010ug/L (0.0-0.011) Total Protein 6.9g/dL (6.4-8.4) Albumin 3.4g/dL (3.4-5.0) Lipase 37U/L (13-60) Hold Olguin Top Tube Received (Received) Hold Urine Received (Received) Urine Color Yellow (YELLOW) Urine Appearance Clear (CLEAR,HAZY) Urine pH 7.0 (5.0-8.0) Urine Specific [place] 1.015 (1.003-1.035) Urine Protein Negativemg/dL (NEG,TRACE) Urine Glucose (UA) 500mg/dL (NEGATIVE) Urine Ketones Negativemg/dL (NEGATIVE) Urine Occult Blood Negative (NEGATIVE) Urine Nitrite Negative (NEGATIVE) Urine Bilirubin Negative (NEGATIVE) Urine Urobilinogen Normalmg/dL (NORMAL) Urine Leukocyte Esterase Negative (NEGATIVE) Urine RBC 0-2/hpf (0-2) Urine WBC 0-5/hpf (0-5) Urine Epithelial Cells Occasional/hpf (NONE-MOD) Urine Crystals None seen (NONE SEEN) Urine Bacteria None/hpf (NONE-FEW) Urine Hyaline Casts None/lpf (NONE) Urine Granular Casts None seen (NONE SEEN) Urine Waxy Casts None seen (NONE SEEN) Urine Red Blood Cell Casts None seen (NONE SEEN) Urine White Blood Cell Casts None seen (NONE SEEN) Urine Mucus None seen (None Seen) Urine Trichomonas None seen (NONE SEEN) Urine Yeast None (NONE SEEN) Urinalysis Comment None Urine Culture Reflexed Not indicated ECG Interpretation ECG Interpretation: Sinus rhythm with a rate of 65. Abnormal R-wave progression, early transition Time: 19:01 Interpreted by: ED physician US Abdominal Aorta IMPRESSION: 1. Thickened gallbladder wall without cholelithiasis, pericholecystic fluid or sonographic Corrales sign. These findings may be associated with early acalculus cholecystitis. Surgical consultation recommended. Dictated by: Maria Teresa Moreira M.D. on 10/31/2016 at 19:50 Exam Performed by: Radiologist Amisha-Evsamantha/Medical Decision Med Decision/Clinical Course Michael did great. His pain was adequately controlled. He was no longer opiate withdrawal. The ultrasound was equivocal for acalculous cholecystitis. His bili was actually very benign after some pain medicine and he had a normal white count. He spent roughly 9 hours the emergency department due to the acuity of the other patients present and his symptoms. After observation he looked and felt much better. He was comfortably discharged home. He pain medication down. I consulted with Dr. Gomez. We will have outpatient follow- up. A placement oral antibiotics. He is to call the surgical clinic tomorrow follow-up at the next available practitioner. He can return in the morning if he has any new or worsening pain. He will return if lobes of fever or jaundice. Source of Hx: Old records Re-Evaluation/Progress : Time of Eval: 01:29 )( Re-Eval Abdomen: Soft Re-Evaluation/Progress Note: Pt rechecked. Informed pt of plan for discharge. Pt understands and agrees with plan for discharge. F/U instructions and RTER warnings given. All questions addressed. Consultation : Referral / Consult Name: Cate Thakkar DO Consulted With: Hospitalist Call Returned at: 12:30 Hood Fitter: Agrees with eval, Agrees with plan Counseled Regarding: Diagnosis, Lab results, Need for follow-up, When/why to return to ED Patient Discharge & Departure Primary Impression: Abdominal pain Abdominal location: right upper quadrant Qualified Code: R10.11 - Right upper quadrant pain Additional Impressions: Acute opioid withdrawal Vomiting Vomiting type: unspecified Vomiting Intractability: non-intractable Nausea presence: with nausea Qualified Code: R11.2 - Nausea with vomiting, unspecified Disposition: Home Discharge Condition All VS Reviewed: Yes Condition: Stable Patient Instructions: Acute Abdominal Pain (ED), Acute Nausea and Vomiting (DC) , Cholecystitis (ED), Opioid Withdrawal (ED) Additional Instructions: Clear liquid diet for the next 24 hours. Recheck here in 8-10 hours or at the urgent care if the pain has returned. The ultrasound shows either a contracted gallbladder from recent food ingestion or possible gallbladder wall thickening that could represent acalculous cholecystitis. This needs to be followed up closely. Call the surgical clinic tomorrow morning to follow up with the next available practitioner. Of course may come back emergent department if the pain returns or if he feels sicker in any way. I suspect there is a component of opiate withdrawal as well. He received IV opiates as well as a dose of oral oxycodone. Do not take any other oxycodone or any other sedatives tonight. Do not drive tonight. Do not consume alcohol tonight. Take Flagyl and Omnicef twice daily for 5 days in the event that her developing an infection in her gallbladder. If he develop a fever, jaundice or any new or worsening symptoms come right back to the emergency department. Referrals: Racquel Bergeron PA-C (PCP) Derek Gomez MD Attestation Portions of this note were transcribed by Robyn Childress. I, Dr. Hay personally performed the history, physical exam and medical decision-making; I reviewed and confirmed the accuracy of the information in the transcribed note. Signed by: Kenney Frank, 10/31/16 and 22:50. copies to: Racquel Bergeron PA-C; Derek Gomez MD, Todd P DO Oct 31, 2016 18:39 Robyn Cunningham Oct 31, 2016 21:55
[2016-10-31] MEDS ORDERED: 0.9% Sodium Chloride 1,000 ML IV SCH (18:50)
[2016-10-31] MEDS ORDERED: Ondansetron 2 mg/mL 2 mL Inj IVPUSH PRN (18:50)
[2016-10-31] MEDS: HYDROmorphone 1 mg/mL Inj IVPUSH PRN ×2 (19:11→23:03)
--- NOTE | 2016-10-31 20:03 | DRSVH ---
PROCEDURE: US ABDOMEN, LIMITED ([id number]) INDICATIONS: ruq pain, vomiting TECHNIQUE: Real-time focused scanning was performed of the abdomen, with image documentation. COMPARISON: [facility], CT, CT ABD PELVIS W CON, 10/24/2016, 16:56. FINDINGS: Gallbladder wall measures up to 4.6 mm in diameter. No pericholecystic fluid. No sonographi c Corrales's sign. No sludge or stones. The common bile duct measures 4.3 mm in diameter. IMPRESSION: 1. Thickened gallbladder wall without cholelithiasis, pericholecystic fluid or sonographic Corrales sig n. These findings may be associated with early acalculus cholecystitis. Surgical consultation recomme nded. Dictated by: Maria Teresa Moreira M.D. on 10/31/2016 at 19:50 Approved by: Maria Teresa Moreira M.D. on 10/31/2016 at 20:01
[2016-10-31 21:43] LABS: APPEARANCE,URINE CLEAR (CLEAR,HAZY); COLOR,URINE YELLOW (YELLOW); OCCULT BLOOD,URINE NEGATIVE (NEGATIVE); UROBILINOGEN,URINE NORMAL (NORMAL)
[2016-10-31 22:31] VITALS: BP 133/87; PULSE 66; RESP 16; O2SAT 99
[2016-10-31] MEDS ORDERED: cefTRIAXone Inj 2,000 MG in Dextrose 5% Minibag Plus 50 ML IV ONE (22:35)
[2016-11-01] MEDS ORDERED: HYDROmorphone 1 mg/mL Inj IVPUSH ONE (00:25)
[2016-11-01] MEDS: HYDROmorphone 1 mg/mL Inj IVPUSH PRN (00:30)
[2016-11-01 01:34] VITALS: BP 133/87; PULSE 66; RESP 16; O2SAT 99
== END 2016-11-01 01:34 | disposition home or self-care (01) ==
LOC: SED 16:05
DX: R10.11 Right upper quadrant pain (principal); F11.23 Opioid dependence with withdrawal; R11.2 Nausea with vomiting, unspecified; R19.7 Diarrhea, unspecified; I10 Essential (primary) hypertension; E11.9 Type 2 diabetes mellitus without complications; F41.8 Other specified anxiety disorders; Z79.4 Long term (current) use of insulin; Z79.84 Long term (current) use of oral hypoglycemic drugs; Z88.0 Allergy status to penicillin; Z88.6 Allergy status to analgesic agent
CPT/HCPCS: 36415; 76705; 80053; 81000; 83690; 83735; 84484; 85025; 93005; 96361; 96365; 96375; 96376; 99285; J0696; J1170; J2405; J7030

== ENCOUNTER 2016-11-04 22:14 | Emergency (ER) | payer MEDICARE, MEDICAID ==
[~2016-11-04] VITALS: Ht 177.8 cm; Wt 97.7 kg
[2016-11-04 22:37] VITALS: BP 136/82; PULSE 76; RESP 14; O2SAT 98
[2016-11-05 00:21] VITALS: BP 148/66; PULSE 79; RESP 17; O2SAT 98
[2016-11-05] MEDS ORDERED: 0.9% Sodium Chloride 1,000 ML IV ONE (00:31)
[2016-11-05] MEDS ORDERED: Ondansetron 2 mg/mL 2 mL Inj IVPUSH PRN (00:35)
[2016-11-05] MEDS ORDERED: HYDROmorphone 1 mg/mL Inj IVPUSH PRN (00:35)
[2016-11-05 00:49] LABS: BASOPHILS % (AUTO) 0.3 % (0-3); EOSINOPHILS % (AUTO) 4.2 % (0-5); MONOCYTES % (AUTO) 10.9 % (4-12); Mean Corpuscular Hemoglobin 30.9 pg (27.0-35.0); NEUTROPHILS % (AUTO) 66.7 % (40-74); Platelet Count 77 bil/L (150-400)
[2016-11-05 01:15] LABS: Magnesium 1.9 mg/dL (1.6-2.6)
--- NOTE | 2016-11-05 01:18 | ED.REPORT ---
HPI-Abd Pain M 40 and Over Date of Service Nov 05, 2016 ED Provider: Juvenal Hay DO Patient is a 61 year old male with a history of diabetes and hypertension who presents to the ED complaining of ongoing abdominal pain. Associated symptoms include fever, diarrhea, nausea and vomiting. The patient reports that he takes 20mg of Oxycodone 5 times a day without relief of his pain. He was seen here for the same complaint. He had an ultrasound that showed possible thickening of the gallbladder lining and was discharged feeling improved and with a prescription for Flagyl and Omnicef. Nursing Notes Stated Complaint: VOMITING, FEVER, DIARRHEA Chief Complaint: Male Abdominal Pain Nursing Notes Reviewed: Yes Allergies: Coded Allergies: Penicillins (Verified Allergy, Severe, Severe itching/hives, OK WITH CEPHALOSPORINS, 10/24/16) PT TAKES KEFLEX AT HOME RECEIVED ROCEPHIN ON 08/16; NO PROBLEMS NOTED ketorolac (Verified Adverse Reaction, Intermediate, 10/24/16) Scheduled Ascorbic Acid (Vitamin C) 1,000 Mg Tab.chew 1,000 MG PO DAILY Cephalexin (Keflex) 500 Mg Capsule 500 MG PO QID Cephalexin (Cephalexin) 500 Mg Capsule 500 MG PO QID Cholecalciferol (Vitamin D3) (Vitamin D3) 2,000 Unit Tablet 2,000 UNIT PO DAILY Doxycycline Monohyd (Doxycycline Monohyd) 100 Mg Capsule 100 MG PO BID Furosemide (Furosemide) 40 Mg Tablet 40 MG PO QAM Gabapentin (Gabapentin) 300 Mg Capsule 900 MG PO HS Magnesium Oxide (Magnesium Oxide) 400 Mg Tablet 400 MG PO DAILY Metformin (Metformin) 850 Mg Tablet 850 MG PO BIDWM Ondansetron ODT (Ondansetron ODT) 4 Mg Tab.rapdis 4 MG PO QID Potassium Chloride ER (Potassium Chloride ER) 20 Meq Tablet.er 20 MEQ PO DAILY TAKE WITH FOOD Vit B Comp&C/Folic Acid/Vit D3 (Dialyvite 800 Plus D Wafer) 800 Mcg-2,000 Unit Tab.chew 1 EACH PO DAILY Scheduled PRN Etodolac (Etodolac) 500 Mg Tablet 500 MG PO BIDWM PRN PRN For Pain Insulin Aspart (NovoLOG U-100 Pen) 100 Unit/Ml Insuln.pen 0-20 UNIT SUBQ TIDAC PRN PRN sliding scale 1 unit for BS>150, 1 unit increment for BS increment of 25 Oxycodone (Roxicodone) 5 Mg Tablet 15-20 MG PO QID PRN PRN For Pain Promethazine (Promethazine) 25 Mg Tablet 25 MG PO Q6H PRN PRN For Nausea diphenhydrAMINE HCl (Unisom) 50 Mg/30 Ml Liquid 50 MG PO HS PRN PRN Insomnia General Time Seen by MD: 00:30 Chief Complaint Abdominal pain Hx Obtained From: Patient Arrived By: Walk-in Sudden in Onset?: No Onset Occurred: 1 week ago Symptom Duration: Since onset Progression since Onset: Unchanged Location: : Diffuse Quality: Painful Severity: Current: Moderate Recent Healthcare: Recent doctor visit Similar Sx Previous: Yes Past Medical History Past Medical History Notes: Infectious disease followed by Dr. Goff Drug seeking behavior Past Medical History Recurrent left lower extremity cellulitis ( recent Admit July 2016) C diff November 2015 Chronic venous stasis Hepatitis C, now treated Syncope Bilateral lower extremity knee arthritis On chronic opiates, with history of drug-seeking behavior Hx of septic joint - on doxycycline Anxiety Hx of pneumonia Reports: Diabetes mellitus, Hypertension Reports: Depression Past Surgical History Left knee replacement (2011) with MRSA postoperative infection and hardware removal right knee ACL repair Family History Father CABG in his 60's Smoking History Never Smoker Social History Alcohol Use: Denies alcohol use Drug Use: Denies drug use Other Social History: Frequent ED visitor, Local resident Occupation lives with partner and her daughter and daughter's boyfriend and several young children Ambulatory Status Independent Review of Systems Constitutional: Reports: Fever, Denies: Chills Respiratory: Denies: Non-productive cough, Shortness of breath GI: Reports: Abdominal pain, Diarrhea, Nausea, Vomiting Complete sys rev & neg: except as marked. Skin: Denies Itching, Denies Rash Physical Exam Initial Vital Signs Vital Signs (First) Date Time Temp Pulse Resp B/P Pulse Ox O2 Delivery O2 Flow Rate FiO2 11/04/16 22:37 37.0 76 14 136/82 98 11/05/16 00:21 Room Air Initial VS: Reviewed General/Constitutional: Awake, Alert Respiratory / Chest: Atraumatic, Breath sounds NL, Breath sounds = bilat, No respiratory distress Cardiovascular: Heart rate NL, Regular rhythm systolic injection murmur present Abdomen: Atraumatic, Soft Tenderness/Guarding/Rebound: Positive: Tender RUQ... Back: Atraumatic, Non-tender Head / Eyes: Atraumatic, Normocephalic, PERRL, EOMI Skin: Atraumatic, Color NL, No rash, Warm, Dry Neurologic: Oriented X3, Speech NL, No motor deficits, No sensory deficits Psychiatric: Affect NL, Mood NL Interpretation & Diagnostics Lab Results Interpretation Result Diagram: 11/05/16 0040 11/05/16 0040 Test 11/05/16 00:40 11/05/16 01:25 11/05/16 03:15 11/05/16 03:25 White Blood Count 5.9th/mm3 (3.8-10.1) Red Blood Count 4.37mil/mm3 (4.40-5.80) Hemoglobin 13.5g/dL (13.8-17.2) Hematocrit 38.0% (41.0-50.0) Mean Corpuscular Volume 87.0fL (81-100) Mean Corpuscular Hemoglobin 30.9pg (27.0-35.0) Mean Corpuscular Hemoglobin Concent 35.5% (32.0-37.0) Red Cell Distribution Width 14.8% (12.3-15.4) Platelet Count 77bil/L (150-400) Neutrophils (%) (Auto) 66.7% (40-74) Lymphocytes (%) (Auto) 17.7% (14-46) Monocytes (%) (Auto) 10.9% (4-12) Eosinophils (%) (Auto) 4.2% (0-5) Basophils (%) (Auto) 0.3% (0-3) Sodium Level 136mEq/L (134-144) Potassium Level 4.0mEq/L (3.5-5.2) Chloride Level 101mEq/L (97-108) Carbon Dioxide Level 21mmol/L (18-29) Blood Urea Nitrogen 20mg/dL (8-27) Creatinine 0.52mg/dL (0.76-1.27) Estimat Glomerular Filtration Rate 171mL/min (>59) Glucose Level 229mg/dL (60-99) Calcium Level 8.6mg/dL (8.5-10.1) Magnesium Level 1.9mg/dL (1.6-2.6) Total Bilirubin 2.0mg/dL (0.0-1.2) Aspartate Amino Transf (AST/SGOT) 24U/L (0-50) Alanine Aminotransferase (ALT/SGPT) 15U/L (0-44) Alkaline Phosphatase 117U/L (25-160) Total Protein 6.5g/dL (6.4-8.4) Albumin 3.4g/dL (3.4-5.0) Lipase 23U/L (13-60) Lactic Acid Level 1.0mmol/L (0.4-2.0) Urine Color Yellow (YELLOW) Urine Appearance Clear (CLEAR,HAZY) Urine pH 7.0 (5.0-8.0) Urine Specific [place] 1.010 (1.003-1.035) Urine Protein Negativemg/dL (NEG,TRACE) Urine Glucose (UA) 100mg/dL (NEGATIVE) Urine Ketones Tracemg/dL (NEGATIVE) Urine Occult Blood Negative (NEGATIVE) Urine Nitrite Negative (NEGATIVE) Urine Bilirubin Negative (NEGATIVE) Urine Urobilinogen 1.0mg/dL (NORMAL) Urine Leukocyte Esterase Negative (NEGATIVE) Urine RBC 0-2/hpf (0-2) Urine WBC 0-5/hpf (0-5) Urine Epithelial Cells Occasional/hpf (NONE-MOD) Urine Crystals Amorphous urates (NONE Urine Bacteria Few/hpf (NONE-FEW) Urine Hyaline Casts None/lpf (NONE) Urine Granular Casts None seen (NONE SEEN) Urine Waxy Casts None seen (NONE SEEN) Urine Red Blood Cell Casts None seen (NONE SEEN) Urine White Blood Cell Casts None seen (NONE SEEN) Urine Mucus None seen (None Seen) Urine Trichomonas None seen (NONE SEEN) Urine Yeast None (NONE SEEN) Urinalysis Comment None Urine Culture Reflexed Not indicated Troponin T 0.010ug/L (0.0-0.011) ECG Interpretation Time: 00:53 Interpreted by: ED physician Normal ECG Interpretation: Normal rate (80), Normal sinus rhythm CT Abd / Pelvis Interpretation IMPRESSION: Nodular liver contour, cirrhosis is favored. Prominent portosystemic collaterals in the abdomen and pelvis. There is a recanalized umbilical vein. Splenomegaly. at 0231 Interpretation / Wet Read by: Interpret - Radiologist Re-Eval/Medical Decision Med Decision/Clinical Course Diagnostics reviewed. Acute surgical/medical emergency not identified on laboratory work or CT scan. Mr. Durham was medicated and he continued to look well. He was afebrile ED. He was unable to produce stool for stool testing. I will have him follow up closely with his primary care physician. Time of Eval: 02:56 Re-Evaluation/Progress Note: Discussed CT and plan for discharge. Patient understands and agrees to plan. All questions were addressed. Counseled Regarding: Diagnosis, Lab results, Need for follow-up, When/why to return to ED Discharge & Departure Primary Impression: Abdominal pain Abdominal location: generalized Qualified Code: R10.84 - Generalized abdominal pain Additional Impression: Nausea vomiting and diarrhea Disposition: Home Vital Signs - All Vital Signs Date Time Temp Pulse Resp B/P Pulse Ox O2 Delivery O2 Flow Rate FiO2 11/05/16 04:44 36.6 79 18 137/74 99 Room Air 11/05/16 00:21 79 17 148/66 98 Room Air 11/04/16 22:37 37.0 76 14 136/82 98 )( All Prior VS Reviewed: Yes Condition: Stable Additional Instructions: The CAT scan shows that your gallbladder is normal and that your have cirrhosis. You do have multiple spots (lytic lesions) in your pelvis and femur. This needs to be followed up with either MRI or bone scan. I want you to call your doctor Sunday morning. Tell Dr. Bergeron you were seen in the emergency department we recommend close follow-up. Do not drive tonight. Do not take any more of your pain medication tonight as you have received both oral and IV pain medications. The cause of your pain is uncertain however it does need close outpatient follow-up. Call your primary care physician on Sunday to schedule an appointment. Return to the emergency department if you develop any new or concerning symptoms. Referrals: Racquel Bergeron PA-C (PCP) Alexibzunilda Attestation Portions of this note were transcribed by Osiris Chowdary. I, Dr. Hay personally performed the history, physical exam and medical decision-making; I reviewed and confirmed the accuracy of the information in the transcribed note. Signed by: Kenney Orona, 11/05/16 and 0130 copies to: Racquel Bergeron PA-C, Todd P DO Nov 05, 2016 01:17 Nicci Chowdary Nov 05, 2016 01:24 Nino Crawford MD Nov 05, 2016 04:24
[2016-11-05 03:35] LABS: APPEARANCE,URINE CLEAR (CLEAR,HAZY); COLOR,URINE YELLOW (YELLOW)
[2016-11-05 03:36] LABS: OCCULT BLOOD,URINE NEGATIVE (NEGATIVE)
[2016-11-05 04:44] VITALS: BP 137/74; PULSE 79; RESP 18; O2SAT 99
--- NOTE | 2016-11-05 09:42 | DRSVH ---
PROCEDURE: CT ABDOMEN AND PELVIS WITH CONTRAST ([id number]) INDICATIONS: abdominal pain fever TECHNIQUE: After the administration of intravenous contrast, 5 mm thick sections acquired from the diaphragm to the symphysis. 5 mm coronal and sagittal reformats were acquired. For radiation dose reduction, the following was used: automated exposure control, adjustment of mA and/or kV according to patient bhanu mauro. COMPARISON: Merged With [facility], CT, CT ABD PELVIS W CON, 10/24/2016, 16:56. FINDINGS: Image quality: Excellent. ABDOMEN: Lung bases: Lung bases are clear. Heart size is normal. Solid organs: Liver and spleen are unchanged in size and enhancement, with sclerotic margination of the liver and splenomegaly in addition to extensive venous collateral flow indicating prominent shira l hypertension, also stable over time. Gallbladder appears normal. Biliary system is non dilated. Pancreas enhances normally. No adrenal nodules. Kidneys demonstrate normal size and enhancement, wi thout hydronephrosis. Peritoneum and bowel: Bowel loops demonstrate normal wall thickness and caliber. No free fluid or a ir. Nodes and vessels: No retroperitoneal or mesenteric adenopathy by size criteria. Aorta and inferior vena cava are normal in size. Miscellaneous: No ventral hernias. PELVIS: Genitourinary: Bladder wall thickness is normal. Miscellaneous: No inguinal hernias or adenopathy. Bones: No suspicious bony lesions. No vertebral body compression fractures. IMPRESSION: The abnormalities present on this study are equivalent to that previously present showing relatively severe cirrhosis and portal hypertension with splenomegaly. No ascites has developed. N o acute disease found. Dictated by: Chris Casarez M.D. on 11/05/2016 at 9:38 Approved by: Chris Casarez M.D. on 11/05/2016 at 9:40
== END 2016-11-05 04:52 | disposition home or self-care (01) ==
LOC: SED 22:14
DX: R10.11 Right upper quadrant pain (principal); R11.2 Nausea with vomiting, unspecified; R19.7 Diarrhea, unspecified; R50.9 Fever, unspecified; E11.9 Type 2 diabetes mellitus without complications; I10 Essential (primary) hypertension; Z79.84 Long term (current) use of oral hypoglycemic drugs; Z88.0 Allergy status to penicillin; Z79.4 Long term (current) use of insulin
CPT/HCPCS: 36415; 74177; 80053; 81000; 83605; 83690; 83735; 84484; 85025; 93005; 96361; 96374; 96375; 99285; J1170; J2405; J7030; Q9967

== ENCOUNTER 2016-11-05 16:04 | Emergency (ER) | payer MEDICARE, MEDICAID ==
[~2016-11-05] VITALS: Ht 177.8 cm; Wt 97.7 kg
[2016-11-05 16:10] VITALS: BP 130/78; PULSE 75; RESP 16; O2SAT 97
--- NOTE | 2016-11-05 18:02 | ED.REPORT ---
HPI-Abd Pain M 40 and Over Date of Service Nov 05, 2016 ED Provider: Juvenal Hay DO Patient is a 61 year old male with a history of hypertension and diabetes who presents to the ED complaining of vomiting. Associated symptoms include subjective fever, nausea and diarrhea. Patient was seen in the ED yesterday with the same complaint. He was given fluids and greatly improved before discharge. The patient now returns stating he has not improved since discharge and is still having symptoms. He last took his Oxycodone last night. Nursing Notes Stated Complaint: NAUSEA, FEVER, DIARRHEA Chief Complaint: Male Abdominal Pain Nursing Notes Reviewed: Yes Allergies: Coded Allergies: Penicillins (Verified Allergy, Severe, Severe itching/hives, OK WITH CEPHALOSPORINS, 10/24/16) PT TAKES KEFLEX AT HOME RECEIVED ROCEPHIN ON 08/16; NO PROBLEMS NOTED ketorolac (Verified Adverse Reaction, Intermediate, 10/24/16) Scheduled Ascorbic Acid (Vitamin C) 1,000 Mg Tab.chew 1,000 MG PO DAILY Cephalexin (Keflex) 500 Mg Capsule 500 MG PO QID Cephalexin (Cephalexin) 500 Mg Capsule 500 MG PO QID Cholecalciferol (Vitamin D3) (Vitamin D3) 2,000 Unit Tablet 2,000 UNIT PO DAILY Doxycycline Monohyd (Doxycycline Monohyd) 100 Mg Capsule 100 MG PO BID Furosemide (Furosemide) 40 Mg Tablet 40 MG PO QAM Gabapentin (Gabapentin) 300 Mg Capsule 900 MG PO HS Magnesium Oxide (Magnesium Oxide) 400 Mg Tablet 400 MG PO DAILY Metformin (Metformin) 850 Mg Tablet 850 MG PO BIDWM Ondansetron ODT (Ondansetron ODT) 4 Mg Tab.rapdis 4 MG PO QID Potassium Chloride ER (Potassium Chloride ER) 20 Meq Tablet.er 20 MEQ PO DAILY TAKE WITH FOOD Vit B Comp&C/Folic Acid/Vit D3 (Dialyvite 800 Plus D Wafer) 800 Mcg-2,000 Unit Tab.chew 1 EACH PO DAILY Scheduled PRN Etodolac (Etodolac) 500 Mg Tablet 500 MG PO BIDWM PRN PRN For Pain Insulin Aspart (NovoLOG U-100 Pen) 100 Unit/Ml Insuln.pen 0-20 UNIT SUBQ TIDAC PRN PRN sliding scale 1 unit for BS>150, 1 unit increment for BS increment of 25 Oxycodone (Roxicodone) 5 Mg Tablet 15-20 MG PO QID PRN PRN For Pain Promethazine (Promethazine) 25 Mg Tablet 25 MG PO Q6H PRN PRN For Nausea diphenhydrAMINE HCl (Unisom) 50 Mg/30 Ml Liquid 50 MG PO HS PRN PRN Insomnia General Time Seen by MD: 18:01 Chief Complaint Abdominal pain Hx Obtained From: Patient Arrived By: Walk-in Sudden in Onset?: No Location: : Diffuse Quality: Painful Recent Healthcare: Recent doctor visit Similar Sx Previous: Yes Past Medical History Past Medical History Notes: Infectious disease followed by Dr. Goff Drug seeking behavior Past Medical History Recurrent left lower extremity cellulitis ( recent Admit July 2016) C diff November 2015 Chronic venous stasis Hepatitis C, now treated Syncope Bilateral lower extremity knee arthritis On chronic opiates, with history of drug-seeking behavior Hx of septic joint - on doxycycline Anxiety Hx of pneumonia Reports: Diabetes mellitus, Hypertension Reports: Depression Past Surgical History Left knee replacement (2011) with MRSA postoperative infection and hardware removal right knee ACL repair Family History Father CABG in his 60's Smoking History Never Smoker Social History Alcohol Use: Denies alcohol use Drug Use: Denies drug use Other Social History: Frequent ED visitor, Local resident Occupation lives with partner and her daughter and daughter's boyfriend and several young children Ambulatory Status Independent Review of Systems Constitutional: Reports: Fever (subjective), Denies: Chills Respiratory: Denies: Non-productive cough, Shortness of breath GI: Reports: Abdominal pain, Diarrhea, Nausea, Vomiting, Denies: Constipation Complete sys rev & neg: except as marked. Skin: Denies Itching, Denies Rash Neurologic: Denies: Headache Physical Exam Initial Vital Signs Vital Signs (First) Date Time Temp Pulse Resp B/P Pulse Ox O2 Delivery O2 Flow Rate FiO2 11/05/16 16:10 36.8 75 16 130/78 97 Room Air Initial VS: Reviewed General/Constitutional: Awake, Alert Respiratory / Chest: Atraumatic, Breath sounds NL, Breath sounds = bilat, No respiratory distress Cardiovascular: Heart rate NL, Regular rhythm, Heart sounds NL Abdomen: Atraumatic, Soft, Non-tender Back: Atraumatic, Full range of motion Head / Eyes: Atraumatic, Normocephalic, PERRL, EOMI Skin: Atraumatic, Color NL, No rash, Warm, Dry Neurologic: Oriented X3, Speech NL, No motor deficits, No sensory deficits Psychiatric: Affect NL, Mood NL Interpretation & Diagnostics Lab Results Interpretation Result Diagram: 11/05/16191411/05/161914 Test 11/05/16 19:15 White Blood Count 4.4th/mm3 (3.8-10.1) Red Blood Count 4.30mil/mm3 (4.40-5.80) Hemoglobin 13.1g/dL (13.8-17.2) Hematocrit 38.0% (41.0-50.0) Mean Corpuscular Volume 88.4fL (81-100) Mean Corpuscular Hemoglobin 30.5pg (27.0-35.0) Mean Corpuscular Hemoglobin Concent 34.5% (32.0-37.0) Red Cell Distribution Width 14.9% (12.3-15.4) Platelet Count 68bil/L (150-400) Neutrophils (%) (Auto) 70.2% (40-74) Lymphocytes (%) (Auto) 16.7% (14-46) Monocytes (%) (Auto) 8.5% (4-12) Eosinophils (%) (Auto) 4.4% (0-5) Basophils (%) (Auto) 0.2% (0-3) Sodium Level 137mEq/L (134-144) Potassium Level 4.2mEq/L (3.5-5.2) Chloride Level 105mEq/L (97-108) Carbon Dioxide Level 22mmol/L (18-29) Blood Urea Nitrogen 16mg/dL (8-27) Creatinine 0.50mg/dL (0.76-1.27) Estimat Glomerular Filtration Rate 178mL/min (>59) Glucose Level 264mg/dL (60-99) Lactic Acid Level 1.2mmol/L (0.4-2.0) Calcium Level 8.6mg/dL (8.5-10.1) Total Bilirubin 1.8mg/dL (0.0-1.2) Aspartate Amino Transf (AST/SGOT) 21U/L (0-50) Alanine Aminotransferase (ALT/SGPT) 14U/L (0-44) Alkaline Phosphatase 102U/L (25-160) Total Protein 6.3g/dL (6.4-8.4) Albumin 3.3g/dL (3.4-5.0) Re-Eval/Medical Decision Med Decision/Clinical Course Mr. Wilson was hydrated and nausea medicines were given. He is unable to keep his oxycodone down. He still did not give us a stool sample. I recommend close outpatient follow-up stool testing for C. difficile. He is going to call his doctor tomorrow morning. Source of Hx: Old records Summary of Info: CT ABDOMEN FROM PREVIOUS VISIT 11/04/16 PELVIS: Genitourinary: Bladder wall thickness is normal. Miscellaneous: No inguinal hernias or adenopathy. Bones: No suspicious bony lesions. No vertebral body compression fractures. IMPRESSION: The abnormalities present on this study are equivalent to that previously present showing relatively severe cirrhosis and portal hypertension with splenomegaly. No ascites has developed. No acute disease found. Dictated by: Chris Casarez M.D. on 11/05/2016 at 9:38 Approved by: Chris Casarez M.D. on 11/05/2016 at 9:40 Time of Eval: 22:01 Re-Evaluation/Progress Note: Discussed plan for discharge. Patient understands and agrees to the plan. All questions were addressed. Counseled Regarding: Diagnosis, Lab results, Need for follow-up, When/why to return to ED Discharge & Departure Primary Impression: Diffuse abdominal pain Disposition: Home Vital Signs - All Vital Signs Date Time Temp Pulse Resp B/P Pulse Ox O2 Delivery O2 Flow Rate FiO2 11/05/16 21:58 36.9 69 16 145/74 99 Room Air 11/05/16 21:07 69 145/74 99 Room Air 11/05/16 18:28 37.3 76 136/75 98 Room Air 11/05/16 16:10 36.8 75 16 130/78 97 Room Air )( All Prior VS Reviewed: Yes Condition: Stable Patient Instructions: Chronic Abdominal Pain (ED) Additional Instructions: Your labs were normal and reassuring. You can continue to take your pain medication as prescribed. Follow up with your primary care physician later this week. Return to the emergency department if you develop any new or concerning symptoms. Referrals: Racquel Bergeron PA-C (PCP) Scribe Attestation Portions of this note were transcribed by Osiris Chowdary. I, Dr. Hay personally performed the history, physical exam and medical decision-making; I reviewed and confirmed the accuracy of the information in the transcribed note. Signed by: Kenney Orona, 11/05/16 and 1832. copies to: Racquel Bergeron PA-C, Todd P DO Nov 05, 2016 18:02 Nicci Chowdary Nov 05, 2016 18:55
[2016-11-05 18:28] VITALS: BP 136/75; PULSE 76; O2SAT 98
[2016-11-05] MEDS ORDERED: 0.9% Sodium Chloride 1,000 ML IV SCH (18:50)
[2016-11-05] MEDS ORDERED: Promethazine Inj 12.5 MG in Dextrose 5%-Pha MIX 50 ML IV ONE (18:50)
[2016-11-05 19:28] LABS: BASOPHILS % (AUTO) 0.2 % (0-3); EOSINOPHILS % (AUTO) 4.4 % (0-5); MONOCYTES % (AUTO) 8.5 % (4-12); Mean Corpuscular Hemoglobin 30.5 pg (27.0-35.0); Mean Corpuscular Volume 88.4 fL (81-100); NEUTROPHILS % (AUTO) 70.2 % (40-74); Platelet Count 68 bil/L (150-400)
[2016-11-05 21:07] VITALS: BP 145/74; PULSE 69; O2SAT 99
[2016-11-05 21:58] VITALS: BP 145/74; PULSE 69; RESP 16; O2SAT 99
== END 2016-11-05 22:02 | disposition home or self-care (01) ==
LOC: SED 16:04
DX: R10.84 Generalized abdominal pain (principal); R50.9 Fever, unspecified; R19.7 Diarrhea, unspecified; I10 Essential (primary) hypertension; E11.9 Type 2 diabetes mellitus without complications; F41.8 Other specified anxiety disorders; Z79.84 Long term (current) use of oral hypoglycemic drugs; Z79.4 Long term (current) use of insulin; Z87.01 Personal history of pneumonia (recurrent); Z88.0 Allergy status to penicillin; Z88.6 Allergy status to analgesic agent
CPT/HCPCS: 36415; 80053; 83605; 85025; 96361; 96374; 99285; J2550; J7030

== ENCOUNTER 2016-12-07 16:58 | Emergency (ER) | payer MEDICARE, MEDICAID ==
[~2016-12-07] VITALS: Ht 177.8 cm; Wt 100.0 kg
[2016-12-07 17:01] VITALS: BP 120/72; PULSE 75; RESP 20; O2SAT 98
[2016-12-07] MEDS ORDERED: 0.9% Sodium Chloride 1,000 ML IV ONE (18:02)
--- NOTE | 2016-12-07 18:11 | ED.REPORT ---
HPI-Extremity Problem Lower Date of Service Dec 07, 2016 ED Provider: Dionisio Shah PA-C Michael is a 61-year-old male with a history of DM 2, MRSA infection, left total knee arthroplasty and septic arthritis who presents with a chief complaint of possible cellulitis. She complains of redness, swelling, heat in the lower extremities, initially in the left leg and progressing to the right leg as well. Reports a fever of 102 this morning, several episodes of nonbloody nonbilious vomiting. He states he has been unable to take his pain medications. Malaise, melena, hematochezia, abdominal pain chest pain, shortness of breath, history of DVT/PE. Seen initially at the urgent care and referred to the emergency department for IV antibiotics. Nursing Notes Stated Complaint: CELLULITIS- SENT BY Chief Complaint: Skin Rash/Abscess Nursing Notes Reviewed: Yes Allergies: Coded Allergies: Penicillins (Verified Allergy, Severe, Severe itching/hives, OK WITH CEPHALOSPORINS, 12/07/16) PT TAKES KEFLEX AT HOME RECEIVED ROCEPHIN ON 08/16; NO PROBLEMS NOTED ketorolac (Verified Adverse Reaction, Intermediate, 12/07/16) Scheduled Ascorbic Acid (Vitamin C) 1,000 Mg Tab.chew 1,000 MG PO DAILY Cephalexin (Keflex) 500 Mg Capsule 500 MG PO QID Cephalexin (Cephalexin) 500 Mg Capsule 500 MG PO QID Cephalexin (Cephalexin) 500 Mg Tablet 500 MG PO QID Cholecalciferol (Vitamin D3) (Vitamin D3) 2,000 Unit Tablet 2,000 UNIT PO DAILY Doxycycline Hyclate (Doxycycline Hyclate) 100 Mg Tablet 100 MG PO BID Doxycycline Monohyd (Doxycycline Monohyd) 100 Mg Capsule 100 MG PO BID Furosemide (Furosemide) 40 Mg Tablet 40 MG PO QAM Gabapentin (Gabapentin) 300 Mg Capsule 900 MG PO HS Magnesium Oxide (Magnesium Oxide) 400 Mg Tablet 400 MG PO DAILY Metformin (Metformin) 850 Mg Tablet 850 MG PO BIDWM Ondansetron ODT (Ondansetron ODT) 4 Mg Tab.rapdis 4 MG PO QID Ondansetron ODT (Ondansetron ODT) 8 Mg Tab.rapdis 8 MG PO TID Potassium Chloride ER (Potassium Chloride ER) 20 Meq Tablet.er 20 MEQ PO DAILY TAKE WITH FOOD Vit B Comp&C/Folic Acid/Vit D3 (Dialyvite 800 Plus D Wafer) 800 Mcg-2,000 Unit Tab.chew 1 EACH PO DAILY Scheduled PRN Etodolac (Etodolac) 500 Mg Tablet 500 MG PO BIDWM PRN PRN For Pain Insulin Aspart (NovoLOG U-100 Pen) 100 Unit/Ml Insuln.pen 0-20 UNIT SUBQ TIDAC PRN PRN sliding scale 1 unit for BS>150, 1 unit increment for BS increment of 25 Oxycodone (Roxicodone) 5 Mg Tablet 15-20 MG PO QID PRN PRN For Pain Promethazine (Promethazine) 25 Mg Tablet 25 MG PO Q6H PRN PRN For Nausea diphenhydrAMINE HCl (Unisom) 50 Mg/30 Ml Liquid 50 MG PO HS PRN PRN Insomnia General Time Seen by MD: 17:54 Chief Complaint Other (bilateral leg swelling) Past Medical History Past Medical History Notes: Infectious disease followed by Dr. Goff Drug seeking behavior Past Medical History Recurrent left lower extremity cellulitis ( recent Admit July 2016) C diff November 2015 Chronic venous stasis Hepatitis C, now treated Syncope Bilateral lower extremity knee arthritis On chronic opiates, with history of drug-seeking behavior Hx of septic joint - on doxycycline Anxiety Hx of pneumonia Reports: Diabetes mellitus, Hypertension Reports: Depression Past Surgical History Left knee replacement (2011) with MRSA postoperative infection and hardware removal right knee ACL repair Family History Father CABG in his 60's Smoking History Never Smoker Social History Alcohol Use: Denies alcohol use Drug Use: Denies drug use Other Social History: Frequent ED visitor, Local resident Occupation lives with partner and her daughter and daughter's boyfriend and several young children Ambulatory Status Independent Review of Systems Review of Systems Note: Negative unless stated otherwise in history of present illness Physical Exam General: Well appearing, well developed, well nourished, no acute distress. Moderately anxious. Head: Atraumatic, normocephalic. Eyes: No scleral icterus or injection. No discharge. Vision grossly intact. ENT: Voice clear, hearing grossly intact. Respiratory: Regular rate and rhythm. No respiratory distress. No increased work of breathing, speaks in complete sentences. Cardiovascular: Regular rate and rhythm, without murmur, gallop or rub. No pedal edema. Gastrointestinal: Abdomen flat and non-tender without guarding or rebound. Bowel sounds normoactive. Skin: Warm and dry. Legs: Bilaterally red, taught, warm, with several areas of excoriation and brown discoloration. Calf diameter roughly equal [id number]. Bounding DP pulses, PT pulses not appreciated. Flat feet bilaterally Neurological: Grossly nonfocal. Psychological: Alert and oriented. Speech appropriate, linear and logical. Behavior appropriate. Initial Vital Signs Vital Signs (First) Date Time Temp Pulse Resp B/P Pulse Ox O2 Delivery O2 Flow Rate FiO2 12/07/16 17:01 36.2 75 20 120/72 98 Room Air Normal Interpretation & Diagnostics Lab Results Interpretation Result Diagram: 12/07/16 1800 12/07/16 1800 Test 12/07/16 18:00 White Blood Count 3.2th/mm3 (3.8-10.1) Red Blood Count 4.15mil/mm3 (4.40-5.80) Hemoglobin 12.7g/dL (13.8-17.2) Hematocrit 36.5% (41.0-50.0) Mean Corpuscular Volume 88.0fL (81-100) Mean Corpuscular Hemoglobin 30.6pg (27.0-35.0) Mean Corpuscular Hemoglobin Concent 34.8% (32.0-37.0) Red Cell Distribution Width 14.7% (12.3-15.4) Platelet Count 81bil/L (150-400) Neutrophils (%) (Auto) 62.7% (40-74) Lymphocytes (%) (Auto) 20.7% (14-46) Monocytes (%) (Auto) 10.0% (4-12) Eosinophils (%) (Auto) 6.3% (0-5) Basophils (%) (Auto) 0.3% (0-3) Sodium Level 133mEq/L (134-144) Potassium Level 4.2mEq/L (3.5-5.2) Chloride Level 100mEq/L (97-108) Carbon Dioxide Level 24mmol/L (18-29) Blood Urea Nitrogen 12mg/dL (8-27) Creatinine 0.60mg/dL (0.76-1.27) Estimat Glomerular Filtration Rate 145mL/min (>59) Glucose Level 474mg/dL (60-99) Lactic Acid Level 1.7mmol/L (0.4-2.0) Calcium Level 8.8mg/dL (8.5-10.1) Magnesium Level 1.7mg/dL (1.6-2.6) Total Bilirubin 1.3mg/dL (0.0-1.2) Aspartate Amino Transf (AST/SGOT) 19U/L (0-50) Alanine Aminotransferase (ALT/SGPT) 16U/L (0-44) Alkaline Phosphatase 101U/L (25-160) Total Protein 6.4g/dL (6.4-8.4) Albumin 3.1g/dL (3.4-5.0) Re-Eval/Medical Decision Med Decision/Clinical Course 61-year-old male with a history of MRSA, frequent ED visits, drug-seeking behavior presents with chief complaint of bilateral lower leg swelling for 1 week. He was seen at urgent care and directed to the emergency department concern for cellulitis requiring IV antibiotics. She reports a fever of 102 earlier today, 2 episodes of nonbloody nonbilious vomiting. He states the redness and swelling first began on his left anterior lower leg about a week ago , with redness and swelling developing on his right lower leg shortly after that. Patient states that he had many episodes of cellulitis hospitalizations and is concerned he will have his legs amputated. Physical examination reveals talkative brawny edema in his lower bilateral lower extremities with redness, heat and swelling. Bilateral calves have areas of excoriation and crusting. Calf diameter roughly equal [id number], pulses present. Vital signs are normal. CBC, CMP, blood cultures, lactate are ordered. Treatment is initiated with Dilaudid and clindamycin IV. CBC reveals mild leukocytopenia at 3.2 as well as a mild anemia and thrombocytopenia. CMP reveals elevated glucose at 474, carbon dioxide is noted be normal at 24 total bilirubin is mildly elevated and albumin and sodium are slightly low. Lactic acid is normal at 1.7. I discussed the case with Dr. Boston who met with and examined the patient. We find bilateral DVT to be unlikely, and feels cellulitis is a possibility. The patient is aware of his hyperglycemia and reports to Dr. Boston in that he has been addressing it more aggressively with insulin. I do not suspect ketoacidosis at this time as his carbon dioxide levels are normal. We agree that the patient does not appear seriously ill, and hospitalization does not seem appropriate at this time as he has not yet failed outpatient treatment. I discussed this with the patient becomes quite upset, he states that this is how he presented before his previous hospitalizations for cellulitis and he is concerned again that his legs were amputated. Consulted with Dr. Goff, who follows the patient. He feels the bilateral cellulitis extremely unlikely and given the clinical picture does not feel that hospitalization is necessary. He states he will see the patient in clinic next Sunday. He advises doxycycline ( which he believes the patient is on chronically) and Keflex to treat for possibility of cellulitis. I discussed this with the patient who agrees to attempt outpatient treatment, though he reports the doxycycline has been discontinued for roughly 5 months now. Area of redness is demarcated and patient is advised to return to emergency department should redness expands beyond this point. Advised follow-up with Dr. Goff. Provided prescriptions for doxycycline, Keflex, ondansetron and compression stockings. Advised pain control with his home regimen. Provided emergency return precautions. Patient verbalizes understanding of and consented to plan. Consultation : Referral / Consult Name: Shameka Goff MD Call Returned at: 19:26 Note: Dr. Goff feels bilateral cellulitis is extremely unlikely, and in light of normal to low white count, normal vital signs he feels that admission is necessary. Offered to the patient in clinic on Sunday of next week. He believes the patient is on lifelong doxycycline, and believes that we could simply add Keflex antibiotics of caution. Discharge & Departure Impression: Primary Impression: Cellulitis Site of cellulitis: extremity Site of cellulitis of extremity: lower extremity Laterality: unspecified laterality Qualified Code: L03.119 - Cellulitis of unspecified part of limb Additional Impression: Hyperglycemia Disposition: Home Discharge Condition All VS Reviewed: Yes Patient Instructions: Cellulitis (ED) Additional Instructions: Evaluation for bilateral lower leg swelling and emergency department includes history, physical examination, blood work and consultation with Dr. Goff all which are reassuring that this is not a severe or systemic infection. While Dr. Goff believes that is occurring in both legs at the same time is highly unlikely, of an abundance of caution I will prescribe 2 kinds of antibiotics to protect against that possibility. I will write a prescription for doxycycline 100 mg to be taken twice a day for 7 days and Keflex 500 mg to be taken 4 times a day. It is important that she did not take her doxycycline within 1 hour of taking your vitamin supplements, as they can block absorption. I will write a prescription for antinausea medication. Continue to treat the pain with your home regimen. I also suggest using compression stockings keeping your legs elevated as much as possible to reduce swelling. I will write a prescription for compression stockings. Contact Dr. Goff's office to arrange follow-up next Sunday in clinic. We have demarcated the area of redness on your legs. If the redness progresses beyond this shameka, please return to emergency department for reevaluation. Also return for fever, increasing pain, vomiting, feeling ill. Referrals: Shameka Goff MD EDSupervising Provider for APC: Pelon Boston DO Attending Statement I saw, evaluated, and discussed the patient with Dionisio MCLEOD and agree with the documentation above. copies to: Racquel Bergeron PA-C; Shameka Goff MD, Seth PA-C Dec 07, 2016 18:11 Pelon Boston DO Dec 08, 2016 23:41
[2016-12-07] MEDS ORDERED: Clindamycin Inj 600 MG in IV Premix 1 EACH IV ONE (18:20)
[2016-12-07] MEDS: HYDROmorphone 1 mg/mL Inj IVPUSH PRN ×2 (18:25→19:42)
[2016-12-07 18:28] LABS: BASOPHILS % (AUTO) 0.3 % (0-3); EOSINOPHILS % (AUTO) 6.3 % (0-5); Mean Corpuscular Hemoglobin 30.6 pg (27.0-35.0); NEUTROPHILS % (AUTO) 62.7 % (40-74); Platelet Count 81 bil/L (150-400)
[2016-12-07 18:50] LABS: Magnesium 1.7 mg/dL (1.6-2.6)
[2016-12-07 19:27] VITALS: BP 115/78; PULSE 72; RESP 16; O2SAT 99
[2016-12-07] MEDS ORDERED: DOXY100T2 PO (19:55)
[2016-12-07] MEDS ORDERED: ONDA8TAB10 PO (19:55)
[2016-12-07] MEDS ORDERED: SULF1TAB7 PO (19:55)
[2016-12-07] MEDS ORDERED: CEPH500T PO (20:03)
== END 2016-12-07 20:26 | disposition home or self-care (01) ==
LOC: SED 16:58
DX: L03.115 Cellulitis of right lower limb (principal); L03.116 Cellulitis of left lower limb; E11.65 Type 2 diabetes mellitus with hyperglycemia; I10 Essential (primary) hypertension; E11.9 Type 2 diabetes mellitus without complications; F41.8 Other specified anxiety disorders; Z79.4 Long term (current) use of insulin; Z79.84 Long term (current) use of oral hypoglycemic drugs; Z87.01 Personal history of pneumonia (recurrent); Z87.890 Personal history of sex reassignment; Z88.0 Allergy status to penicillin; Z88.6 Allergy status to analgesic agent
CPT/HCPCS: 36415; 80053; 83605; 83735; 85025; 87040; 96361; 96365; 96375; 96376; 99284; J1170; J7030